=== PATIENT | male | born 1990 | race Two or more races ===

== ENCOUNTER 2023-04-18 21:03 | Emergency (ER) | payer MEDICAID, OTHER ==
[~2023-04-18] VITALS: Ht 175.3 cm; Wt 80.0 kg
[2023-04-18] MEDS ORDERED: NALOXONE HCL 1MG/ML 2ML SYRINGE IV ONE (21:15)
[2023-04-18 21:41] VITALS: BP 154/90; PULSE 125; RESP 12; O2SAT 98
[2023-04-18 22:23] LABS: Basophils # (auto) 0 10 ^3/uL (0-0.2); Basophils % (auto) 0.2 % (0.0-2.0); Eosinophils # (auto) 0 10 ^3/uL (0-0.8); Hematocrit 36.3 % (41.0-53.0); Hemoglobin 11.9 g/dL (13.5-17.5); Lymphocytes # (auto) 0.7 10 ^3/uL (0.4-5.4); Lymphocytes % (auto) 9.3 % (10.0-50.0); Mean Corpuscular Hemoglobin 30.5 pg (28.0-32.0); Mean Corpuscular Hgb Conc. 32.7 g/dL (32.0-36.0); Mean Corpuscular Volume 93.1 fL (80.0-100.0); Monocytes # (auto) 0.7 10 ^3/uL (0-1.3); Monocytes % (auto) 10.1 % (0.0-12.0); Neutrophils # (auto) 5.7 10 ^3/uL (1.6-8.6); Neutrophils % (auto) 80.4 % (37.0-80.0); Nucleated Red Blood Cells % 0.1 %; Red Blood Cells 3.89 10^6/uL (4.5-5.90); Red Cell Distribution Width 14.5 % (11.8-14.3)
[2023-04-18 22:35] LABS: Acetaminophen < 2.0 UG/ML (10.0-20.0); Alanine Aminotransferase 15 U/L (7-40); Albumin 4.1 g/dL (3.2-4.8); Alkaline Phosphatase 80 U/L (46-116); Anion Gap 9 (5-15); Aspartate Aminotransferase 24 U/L (13-40); Bilirubin, Total 0.3 mg/dL (0.2-1.0); Blood Urea Nitrogen 9 mg/dL (9-23); Calcium 9.1 mg/dL (8.7-10.4); Carbon Dioxide 25 mmol/L (20-30); Chloride 101 mmol/L (98-107); Glucose 118 mg/dL (74-106); Potassium 4.2 mmol/L (3.5-5.1); Sodium 135 mmol/L (136-145); Total Protein 6.6 g/dL (5.7-8.2)
[2023-04-18 22:38] LABS: Salicylate < 3.0 mg/dL (2.8-20.0)
== END 2023-04-18 22:05 | disposition left against medical advice (07) ==
LOC: ER 21:03 → EDBD 21:03 → ER 22:05
DX: T40.711A Poisoning by cannabis, accidental (unintentional), initial encounter (principal); Z53.21 Procedure and treatment not carried out due to patient leaving prior to being seen by health care provider; Z79.899 Other long term (current) drug therapy; Y92.89 Other specified places as the place of occurrence of the external cause
CPT/HCPCS: 36415; 80053; 80329; 85025; 93005; 96374; 99281; J2310

== ENCOUNTER 2024-04-12 03:19 | Inpatient (IN) | payer MEDICAID ==
[~2024-04-12] VITALS: Ht 165.1 cm; Wt 67.2 kg
[2024-04-12] VITALS (59 sets, daily range): BP systolic 98–140; BP diastolic 47–99; PULSE 105–140; RESP 20–35; TEMP 97.2–102; O2SAT 90–100
[2024-04-12] MEDS: EPINEPHrine HCL 250 ML IV ONE (03:25)
[2024-04-12] MEDS: EPINEPHrine HCL 250 ML IV SCH (03:30)
--- NOTE | 2024-04-12 03:46 | ED.PDOC ---
CPR-HPI HPI Comments 33 y/o M, with a Hx of prior drug overdose, is BIBA for cardiac arrest, today. Per EMS report, patient's friends called at 0225 after patient became unresponsive for 15x minutes after "smoking fentanyl" behind a dumpster of an [employer], this morning. On scene, EMS staff states on finding the patient in asystole after S.O. arrived on scene, first, and gave the patient 2x 4mg of Narcan before initiating CPR. En route, EMS gave the patient an additional 4mg Narcan (total dosage 12mg) and 2x epinephrines in addition to having i/o access placed to his right tibia prior to achieving ROSC at 0300. Upon arrival to ED at 0317, patient lost pulse, again, and CPR was resumed by EMS staff in addition patient being given last epinephrine at 0318 before care was resumed by ED staff. Patient was also stated by EMS staff to have been found with fentanyl and methamphetamine nearby on scene. 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 Chief Complaint: CPR Time Seen by MD: 03:19 Reviewed Notes: Nurses Notes, Obstetrician/Gynecologist Notes, Medications, Allergies Allergies: Coded Allergies: NO KNOWN ALLERGIES (Unverified , 04/18/23) Information Source: Emergency Med Personnel Mode of Arrival: EMS Timing: Hours Duration: Down time prior EMS: (15 minutes), Total time prior hopital: (68x minutes ) Onset: Witnessed Available Hx: Drug Overdose Inital rhythm: Asystole Treatment: CPR, IV, Epinephrine, Other (Narcan ) Associated signs and symptoms: Other (see HPI) Past Medical History Past Medical History (Other): prior drug overdose Surgical History: Unknown, Unobtainable Family History Family History: Unknown, Unobtainable Social History Smoker: Unknown, Unobtainable Alcohol: Unknown, Unobtainable Drugs: Methamphetamine, Other (fentanyl) Lives In: Homeless Constitutional: denies: chills, diaphoresis, fatigue, fever, malaise, sweats, weakness, others EENTM: denies: blurred vision, double vision, ear bleeding, ear discharge, ear drainage, ear pain, ear ringing, eye pain, eye redness, hearing loss, mouth pain, mouth swelling, nasal discharge, nose bleeding, nose congestion, nose pain, photophobia, tearing, throat pain, throat swelling, voice changes, others Respiratory: denies: cough, hemoptysis, orthopnea, SOB at rest, shortness of breath, SOB with excertion, stridor, wheezing, others Cardiovascular: denies: chest pain, dizzy spells, diaphoresis, Dyspnea on ex ertion, edema, irregular heart beat, left arm pain, lightheadedness, palpitations, PND, syncope, others Gastrointestinal: denies: abdomen distended, abdominal pain, blood streaked bowels, constipated, diarrhea, dysphagia, difficulty swallowing, hematemesis, melena, nausea, poor appetite, poor fluid intake, rectal bleeding, rectal pain, vomiting, others Genitourinary: denies: burning, dysuria, flank pain, frequency, hematuria, incontinence, penile discharge, penile sore, pain, testicle pain, testicle swelling, urgency, others Neurological: denies: dizziness, fainting, headache, left sided numbness, left sided weakness, numbness, paresthesia, pre-existing deficit, right sided numbness, right sided weakness, seizure, speech problems, tingling, tremors, weakness, others Musculoskeletal: denies: back pain, gout, joint pain, joint swelling, muscle pain, muscle stiffness, neck pain, others Integumetry: denies: bruises, change in color, change in hair/nails, dryness, laceration, lesions, lumps, rash, wounds, others Allergic/Immunocompromised: denies: Difficulty Healing, Frequent Infections, Hives, Itching, others Hematologic/Lymphatic: denies: anemia, blood clots, easy bleeding, easy bruising, swollen glands, others Endocrine: denies: excessive hunger, excessive sweating, excessive thirst, excessive urination, flushing, intolerance to cold, intolerance to heat, unexplained weight gain, unexplained weight loss, others Psychiatric: denies: anxiety, bipolar disorder, depression, hopeless, panic disorder, schizophrenia, sleepless, suicidal, others All Other Systems: Reviewed and Negative (see HPI) Physical Exam General Appearance: Severe Distress HEENT: Other (Pupils fixed sluggish) Neck: NOT DONE Respiratory: Respiratory Distress, Other (Intubated the patient) Cardiovascular: Other (No pulse) Breast Exam: Deferred Gastrointestinal: Soft Genitalia: Deferred Pelvic: Deferred Rectal: Deferred Extremities: No pedal edema Neurologic: Other (Unconscious) Cerebellar Function: NOT DONE Reflexes: NOT DONE Skin: Pallor Peripheral Pulses: 0 Radial (R), 0 Radial (L) Lymphatic: NOT DONE Was a procedure done? 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 rules examiner: Attending Physician Indication: Hypotension, CVP monitoring Room prepared for procedure: Yes Sand Conditioner Machine performed hand hygien: Yes Maximal sterile barrier precau: Mask/Eye shield, Sterile gown Skin Preparation: Chlorhexidine gluconate, Providine iodine Skin preparation completely dr: Yes Insertion site: Right, Femoral Central line catheter type: Fib-qmhqrhqe-qre dialysis Number of lumens: 3 Intubation Indication: Respiratory Insufficiency, Altered Mental Status Prep: No Preoxygenation Pretreated with: Nothing Medicated with: Nothing Intubation Approach: Orotracheal (8.0) Intubation size: cm (24cm) Informed consent obtained: No Risks/benefits/alt described: No Differential Dx CPR Differential Diagnosis: Cardiopulmonary arrest, Cardiogenic shock, Heart Block, Myocardial Infarction, Other (substance overdose ) X-Ray, Labs, Meds, VS Vital Signs Date Time Temp Pulse Resp B/P (MAP) Pulse Ox O2 Delivery O2 Flow Rate FiO2 04/12/24 05:02 103 04/12/24 05:00 146/101 04/12/24 04:32 151/101 04/12/24 04:30 102 17 151/101 (118) 04/12/24 04:30 151/101 04/12/24 04:30 151/101 04/12/24 04:25 112 24 90/46 (61) 97 35 04/12/24 04:25 151/111 04/12/24 04:20 149/109 04/12/24 04:15 96 19 138/100 (113) 04/12/24 04:15 138/100 04/12/24 04:00 96/61 04/12/24 04:00 96/61 04/12/24 04:00 97 20 96/61 (73) 04/12/24 03:55 62/30 04/12/24 03:52 96 04/12/24 03:50 62/33 04/12/24 03:45 110 20 84/47 (59) 04/12/24 03:37 126 28 193/129 (150) 04/12/24 03:30 193/129 04/12/24 03:30 107 20 79/43 (55) 100 100 04/12/24 03:22 95.0 Lab Test 04/12/24 04:19 04/12/24 03:49 04/12/24 03:37 Range/Units Blood Gas Specimen Type Arterial Blood Gas Sample Site Right radial Blood Gas Patient Temperature 37.0 Arterial Blood Date Drawn [id number] Arterial Blood pH 7.207 *L 7.350-7.450 Arterial Blood Partial Pressure CO2 42.1 35.0-48.0 mmHg Arterial Blood Partial Pressure O2 345.0 *H 83.0-108.0 mmHg Arterial Blood HCO3 16.3 L 21.0-28.0 mmol/L Arterial Blood Oxygen Saturation 99.7 H 94.0-98.0 % Arterial Blood Base Excess -11.0 L -2.0-3.0 mmol/L Arterial Blood Oxyhemoglobin 99.0 H 94.0-98.0 % Arterial Blood Carboxyhemoglobin 0.1 L 0.5-1.5 % Arterial Blood Methemoglobin 0.6 0.0-1.5 % Morgan Test Modified Blood Gas Total Hemoglobin 12.20 L 13.5-17.5 g/dL Blood Gas Set Respiration Rate 20.0 Blood Gas Modality Vent - ac Blood Gas Spontaneous Rate 20 FiO2 % 100.0 Blood Gas Tidal Volume 500.0 Blood Gas Spontaneous Tidal Volume 515 Blood Gas Inspiratory Pressure 25.0 Blood Gas PEEP or CPAP 5.0 Blood Gas Critical Value Read Back Yes Blood Gas Notified Whom Dr. virgilio mckeon Blood Gas Notified Time [id number] Blood Gas Notified By [employer] customer success associate Urine Color Light-orange Yellow Urine Clarity Ex.turbid Clear Urine pH 5.5 5.0-9.0 Urine Specific [place] 1.031 1.001-1.035 Urine Protein 2+ H Negative Urine Ketones Trace Negative Urine Blood 3+ H Negative /uL Urine Nitrite Negative Negative Urine Bilirubin Negative Negative Urine Urobilinogen 3 H Negative mg/dL Urine Leukocyte Esterase 3+ Negative /uL Urine RBC 196 0 - 3 /hpf Urine WBC 1295 0 - 3 /hpf Urine Squamous Epithelial Cells Few <5 /hpf Urine Bacteria Few H None Seen /hpf Urine Hyaline Casts Few 0 - 2 /lpf Urine Mucus Few None Seen Urine Glucose Normal Normal mg/dL Urine Opiates Screen Neg NEGATIVE Urine Fentanyl Screen Pos NEGATIVE Urine Barbiturates Screen Neg NEGATIVE Urine Phencyclidine Screen Neg NEGATIVE Urine Amphetamines Screen Pos NEGATIVE Urine Benzodiazepines Screen Neg NEGATIVE Urine Cocaine Screen Neg NEGATIVE Urine Cannabinoids Screen Pos NEGATIVE White Blood Count 8.1 4.4-10.8 10^3/uL Red Blood Count 3.46 L 4.5-5.90 10^6/uL Hemoglobin 10.4 L 13.5-17.5 g/dL Hematocrit 32.5 L 41.0-53.0 % Mean Corpuscular Volume 94.0 80.0-100.0 fL Mean Corpuscular Hemoglobin 30.1 28.0-32.0 pg Mean Corpuscular Hemoglobin Concent 32.0 32.0-36.0 g/dL Red Cell Distribution Width 14.0 11.8-14.3 % Platelet Count 328 140-450 10^3/uL Mean Platelet Volume 7.8 6.9-10.8 fL Neutrophils (%) (Auto) 37.0-80.0 % Lymphocytes (%) (Auto) 10.0-50.0 % Monocytes (%) (Auto) 0.0-12.0 % Basophils (%) (Auto) 0.0-2.0 % Neutrophils # (Auto) 1.6-8.6 10 ^3/uL Lymphocytes # (Auto) 0.4-5.4 10 ^3/uL Monocytes # (Auto) 0-1.3 10 ^3/uL Differential Total Cells Counted 100.0 100 Neutrophils % (Manual) 29 L 37.0-80.0 Band Neutrophils % (Manual) 2 Lymphocytes % (Manual) 56 H 10.0-50.0 Monocytes % (Manual) 6 0-12 Eosinophils % (Manual) 1 0-7 Basophils % (Manual) 0 0.0-2.0 Metamyelocytes % (manual) 1 Myelocytes % (Manual) 4 Promyelocytes % (Manual) 0 Blast Cells % (Manual) 0 Nucleated Red Blood Cells 2.0 % Reactive Lymphocytes 1 Platelet Estimate Adequate Sodium Level 147 H 136-145 mmol/L Potassium Level 3.5 3.5-5.1 mmol/L Chloride Level 108 H 98-107 mmol/L Carbon Dioxide Level 23 20-31 mmol/L Anion Gap 16 H 5-15 Blood Urea Nitrogen 19 9-23 mg/dL Creatinine 1.35 H 0.700-1.30 mg/dL Glomerular Filtration Rate Calc 70 >90 mL/min BUN/Creatinine Ratio 14.1 10.0-20.0 Serum Glucose 268 H 74-106 mg/dL Calcium Level 7.8 L 8.7-10.4 mg/dL Troponin I High Sensitivity 90 *H </=54 ng/L Current Medications Medications (Trade) Dose Ordered Sig/Moni Route Start Time Stop Time Status Last Admin Epinephrine HCl 250 ml @ 7.5 mls/hr Q24H IV 04/12/24 03:30 04/12/24 03:30 Sodium Chloride 1,000 ml @ 1,000 mls/hr Q1H ONCE IV 04/12/24 04:00 04/12/24 04:59 DC 04/12/24 04:00 Sodium Chloride 1,000 ml @ 150 mls/hr Q6H40M ONCE IV 04/12/24 04:00 04/12/24 10:39 04/12/24 04:30 Midazolam HCl 50 ml @ 1 mls/hr Q24H IV 04/12/24 04:00 04/12/24 04:00 Norepinephrine Bitartrate 250 ml @ 3.75 mls/hr Q24H IV 04/12/24 04:00 04/12/24 03:50 Fentanyl Citrate 250 ml @ 2.5 mls/hr Q24H IV 04/12/24 04:30 04/12/24 04:32 [place] [address] Ph: [phone] DIAGNOSTIC IMAGING Diagnostic Imaging Report : [id number] Signed PATIENT: GABRIEL VELARDE ACCT: [id number] UNIT: [id number] : 1990 LOC: ER ROOM / BED: / AGE / SEX: 33 / M ADM STATUS: REG ER SERVICE 5 ORDERING PHYSICIAN: SHANNON MCKEON MD PROCEDURE(s): CXR1 - CHEST XRAY 1 VIEW REASON: post intubation placement ORDER NUMBER(s): [id number], ACCESSION NUMBER(s): [id number] CHEST RADIOGRAPH Indication:post intubation placement Technique: Single frontal view of the chest was obtained Comparison: None FINDINGS: Lines and Tubes: The endotracheal tube terminates 2.8 cm above the placido. The enteric tube terminates in the mid esophagus. Repositioning is recommended. Lungs: Bilateral interstitial prominence. Pleura: No effusion. No pneumothorax. Cardiomediastinal contours: Unremarkable Bones: No acute osseous abnormality. Upper abdomen: Marked gaseous distention of the stomach and bowel loops. IMPRESSION: 1. Malpositioned enteric tube with its tip terminating in the mid esophagus. Repositioning is recommended. 2. Endotracheal tube terminates 2.8 cm above placido in appropriate position. 3. Pulmonary congestion. ATED BY: SANDRA THURSTON MD DICTATED DATE/TIME: 04/12/24414 SIGNED BY: SANDRA THURSTON MD SIGNED DATE/TIME: 04/12/24414 CC: Patient unconscious. Drug overdose. Possible fentanyl. Was given Narcan in the field. CPR in progress. Transfer care to the ER. Continuous CPR. ACLS drugs use. Intubated the patient. Central line placed. Was due to good pulses. Started an epinephrine drip. Was given fluids. Continue cardiac monitoring. Critical. Time of 1ST Reevaluation: 03:49 Reevaluation 1ST: Unchanged Patient Education/Counseling: Diagnosis, Treatment Family Education/Counseling: No Family Present Departure 1 Departure Time of Disposition: 03:51 Impression: Primary Impression: Acute respiratory failure Qualified Codes: J96.01 - Acute respiratory failure with hypoxia Additional Impressions: Drug overdose Qualified Codes: T50.904A - Poisoning by unspecified drugs, medicaments and biological substances, undetermined, initial encounter Cardiac arrest Disposition: ADMITTED INPATIENT Admit to: ICU Condition: Guarded Critical Care Note Critical Care Time?: Yes (90 min-critical care time only) Heart Score Heart Score: Heart Score Response (Comments) Value History Highly Suspicious 2 EKG Normal 0 Age <45 0 Risk Factors 1 or 2 risk factors 1 Troponin >3 x's Normal limit 2 Total 5 Stability Stability form required: No I personally scribed for SHANNON MCKEON MD ([email or web address]) on 04/12/24 at 03:46. Electronically submitted by Matt Kirkland ([email or web address]). I personally scribed for SHANNON MCKEON MD ([email or web address]) on 04/12/24 at 04:26. Electronically submitted by Matt Kirkland [email or web address]). SHANNON MCKEON MD Apr 12, 2024 03:46
[2024-04-12] MEDS: MIDAZOLAM DRIP 50 mg/50mL 50 ML IV ONE (03:50)
[2024-04-12] MEDS: NOREPINEPHRINE 8 MG/250ML KIT 250 ML IV ONE (03:50)
[2024-04-12] MEDS: NOREPINEPHRINE 8 MG/250ML KIT 250 ML IV SCH (03:50)
[2024-04-12] MEDS: MIDAZOLAM DRIP 50 mg/50mL 50 ML IV SCH (04:00)
[2024-04-12] MEDS: SODIUM CHLORIDE 0.9% 1,000 ML IV ONE ×2 (04:00→04:30)
[2024-04-12 04:03] LABS: Hematocrit 32.5 % (41.0-53.0); Hemoglobin 10.4 g/dL (13.5-17.5); Mean Corpuscular Hemoglobin 30.1 pg (28.0-32.0); Platelet Count (auto) 328 10^3/uL (140-450); Red Blood Cells 3.46 10^6/uL (4.5-5.90); White Blood Cell 8.1 10^3/uL (4.4-10.8)
[2024-04-12 04:13] LABS: Urine Bacteria FEW /hpf (None Seen); Urine Blood 3+ /uL (Negative); Urine Clarity Ex.Turbid (Clear); Urine Color Light-Orange (Yellow); Urine Hyaline Cast FEW /lpf (0 - 2); Urine Mucus FEW (None Seen); Urine Protein, UAD 2+ (Negative); Urine Specific Gravity 1.031 (1.001-1.035); Urine Urobilinogen 3 mg/dL (Negative); Urine WBC 1295 /hpf (0 - 3); Urine pH 5.5 (5.0-9.0)
[2024-04-12 04:14] LABS: Chloride 108 mmol/L (98-107); Potassium 3.5 mmol/L (3.5-5.1); Sodium 147 mmol/L (136-145)
[2024-04-12 04:15] LABS: Anion Gap 16 (5-15); Calcium 7.8 mg/dL (8.7-10.4); Carbon Dioxide 23 mmol/L (20-31)
--- NOTE | 2024-04-12 04:17 | DVH ---
CHEST RADIOGRAPH Indication:post intubation placement Technique: Single frontal view of the chest was obtained Comparison: None FINDINGS: Lines and Tubes: The endotracheal tube terminates 2.8 cm above the placido. The enteric tube terminate s in the mid esophagus. Repositioning is recommended. Lungs: Bilateral interstitial prominence. Pleura: No effusion. No pneumothorax. Cardiomediastinal contours: Unremarkable Bones: No acute osseous abnormality. Upper abdomen: Marked gaseous distention of the stomach and bowel loops. IMPRESSION: 1. Malpositioned enteric tube with its tip terminating in the mid esophagus. Repositioning is recomm ended. 2. Endotracheal tube terminates 2.8 cm above placido in appropriate position. 3. Pulmonary congestion.
[2024-04-12 04:19] LABS: Amphetamine Screen, Urine Pos (NEGATIVE); Barbiturate Scree,Urine Neg (NEGATIVE); Benzodiazephine Screen, Urine Neg (NEGATIVE); Cannabinoid Screen, Urine Pos (NEGATIVE); Cocaine Screen, Urine Neg (NEGATIVE); Opiate Scree,Urine Neg (NEGATIVE); Phencyclidine Screen, Urine Neg (NEGATIVE)
[2024-04-12 04:20] LABS: BUN/Creatinine Ratio 14.1 (10.0-20.0); Blood Urea Nitrogen 19 mg/dL (9-23); Glucose 268 mg/dL (74-106)
[2024-04-12] MEDS: fentaNYL Drip 2500mCg/250mlNS 250 ML IV SCH (04:32)
[2024-04-12 04:34] LABS: Basophils % (manual) 0 (0.0-2.0); Blast Cells 0; Promyelocytes % 0
[2024-04-12 05:35] LABS: Band Neutrophils % (manual) 2; Eosinophils % (manual) 1 (0-7); Lymphocytes % (manual) 56 (10.0-50.0); Metamyelocytes % 1; Monocytes % (manual) 6 (0-12); Myelocytes % 4; Platelet Estimate Adequate; Reactive Lymphocytes 1
--- NOTE | 2024-04-12 06:35 | ECG ---
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
--- NOTE | 2024-04-12 06:52 | DVH ---
CHEST RADIOGRAPH Indication:OG TUBE PLACEMENT Technique: Single frontal view of the chest was obtained Comparison: XY CHEST XRAY 1 VIEW on DOS: 04/12/24 FINDINGS: Lines and Tubes: The endotracheal tube terminates 3.7 cm above the placido. The enteric tube has been advanced and the tip projects over the GE junction. The side port projects over the distal esophagus . Lungs: Worsening bilateral airspace disease since prior study performed earlier same date. Pleura: No effusion. No pneumothorax. Cardiomediastinal contours: Unremarkable Bones: No acute osseous abnormality. IMPRESSION: 1. Enteric tube has been advanced however the side port remains above the GE junction and the tip bar taylor within the gastric lumen. Advancement recommended. 2. Significant worsening of bilateral airspace disease.
--- NOTE | 2024-04-12 07:38 | RESUS ---
CODE BLUE ASSESSSMENT History of Events History of Events: 33 y/o M, with a Hx of prior drug overdose, is BIBA for cardiac arrest, today. Per EMS report, patient's friends called at 0225 after patient became unresponsive for 15x minutes after "smoking fentanyl" behind a dumpster of an [employer], this morning. On scene, EMS staff states on finding the patient in asystole after S.O. arrived on scene, first, and gave the patient 2x 4mg of Narcan before initiating CPR. En route, EMS gave the patient an additional 4mg Narcan (total dosage 12mg) and 2x epinephrines in addition to having i/o access placed to his right tibia prior to achieving ROSC at 0300. Upon arrival to ED at 0317, patient lost pulse, again, and CPR was resumed by EMS staff in addition patient being given last epinephrine at 0318 before care was resumed by ED staff. Patient was also stated by EMS staff to have been found with fentanyl and methamphetamine nearby on scene. Further Hx cannot be obtained. Initial Information Date: Apr 12, 2024 Time: :40 Location of Arrest: In Field Arrest Witnessed: Yes CPR started initial time: 03:30 CPR started by whom: SO Pre-Hospital Care: ACLS Type of arrest: Cardiac, Respiratory, Trauma, Adult, Witnessed Spontaneous Respirations: No Pulse Present: No Monitoring: ECG, Pulse Oximetry, Apnea, Telemetry Crash Cart Opened and Supplies: Yes Airway Ventilation Breathing at Onset: Apneic O2 Sat by Pulse Oximetry: 0 Oxygen Delivery Method: Ambu-Bag Time of first Assisted Ventila: 03:22 Artificial Ventilation: Bag/Endo tube Intubation Time: :22 Intubation Size: 8.0 cuffed Intubated by: JERROD MONTE Intubation Attempts: 2 Intubated orally: Yes Intubated Nasaly: No Tube secured at: 24 Cricoid pressure done: No CO2 indicator used: Yes Confirmation: Auscultation, Exhaled CO2, Chest X-ray Suctioning (Oral/Tracheal): No Circulation Circulation : Time: 03:18 Pulse Rate (adult): 0 Blood Pressure Systolic: 0 Blood Pressure Diastolic: 0 Temperature (Fahrenheit): 95 Procedure - IV Procedure - IV : IV start time: 03:20 IV Location: Antecubital IV Catheter Type: Saline Lock IV Placed: RN IV Placed by SHA IV Gauge: 20 IV Line Care: Saline Flush Procedure - Intraosseous Site of Intraosseous: Tibia yfn-medial Intraosseous inserted by: DONE BY EMS IN FIELD Medications & Response Medications and Responses #1: Medication Time: 03:19 ADULT Medications Given ADULT: Sodium Bacarbinate 50 meq Route of Administration: IO Heart Rate: 0 Blood Pressure Systolic: 0 Blood Pressure Diastolic: 0 Respiratory Rate: 0 O2 Sat by Pulse Oximetry: 0 IV Line Rate: 1000 EKG Rhythm: Asystole Comment 0321 NO PULSE Medications and Responses #2: Medication Time: 03:21 ADULT Medications Given ADULT: Epinephrine 1 mg Route of Administration: IV Heart Rate: 0 EKG Rhythm: Asystole Blood Pressure Systolic: 0 Blood Pressure Diastolic: 0 Respiratory Rate: 0 O2 Sat by Pulse Oximetry: 0 IV Line Rate: 1000 EKG Rhythm: Sinus Tachycardia Comment 0322 ROSC HR 175 BP 173 /123, NO PULSE AT 0325 Medications and Responses #3: Medication Time: 03:25 ADULT Medications Given ADULT: Epinephrine 1 mg, Sodium Bacarbinate 50 meq Route of Administration: IV Heart Rate: 0 EKG Rhythm: PEA Blood Pressure Systolic: 0 Blood Pressure Diastolic: 0 Respiratory Rate: 0 O2 Sat by Pulse Oximetry: 0 IV Line Rate: 1000 EKG Rhythm: Asystole Comment NO PULSE AT 0327 Medications and Responses #4: Medication Time: 03:27 ADULT Medications Given ADULT: Epinephrine 1 mg, Sodium Bacarbinate 50 meq Route of Administration: IV Heart Rate: 0 Blood Pressure Systolic: 0 Blood Pressure Diastolic: 0 Respiratory Rate: 0 IV Line Rate: 1000 EKG Rhythm: Asystole Medications and Responses #5: Medication Time: 03:29 ADULT Medications Given ADULT: Epinephrine 1 mg, Sodium Bacarbinate 50 meq Route of Administration: IV Heart Rate: 0 EKG Rhythm: PEA Blood Pressure Systolic: 0 Blood Pressure Diastolic: 0 Respiratory Rate: 0 O2 Sat by Pulse Oximetry: 0 EKG Rhythm: PEA Comment pulse check at 0330 ROSC VS HR 178 BP 180/121 SAT 91% PT STARTED ON EPINEPHRINE DRIP AT 2MCG /MIN Pacing Pacer Pads Applied and Pacing: Yes Procedure - Central Venous Cat Central venous catheter time: 03:27 Central venous catheter site: Rt Femoral Central Venous Catheter Insert: DR COOPER Procedure - Chambers Catheter Time: 03:29 Urinary Catheter Type/Location: Uretheral (Chambers) Urinary Catheter Size: 16 Urine Color: Yellow Chambers Catheter Secured: Yes Chambers Catheter Inserted by Who: SHA RN Nurses Notes [place] Coma Scale Eye Opening: None (1) [place] Coma Scale Verbal: None (1) [place] Coma Scale Motor: None (1) Pupil Reaction: Non Reactive Bedside Blood Glucose: 209 EKG Rhythm: Sinus Tachycardia Time Code Ended Time Code Ended: 03:30 Post Arrest Status: Ventilated Outcome of code: Successful Family notified: No Attending called: No Code Team Present: AYDE HE RN HS, ROSMERY RN, SHA RN, SANJUANITA RN, TEENA ERT, ALPESH ERT, JERROD RT, ELLEN RT Post Resuscitation Neurologica Pupil Size: 2 ROSC Time of ROSC: 21:30 Pt Meets Criteria for Therapeu: No Therapeutic Hyperthermia Start: AYDE Coelho Apr 12, 2024 07:38
--- NOTE | 2024-04-12 10:33 | DVH ---
EXAM: CT HEAD WITHOUT CONTRAST INDICATION: altered TECHNIQUE: CT of the head without intravenous contrast. Radiation dose : Head: CT Dose: CTDI volume is 53 mGy. Dose-length product is 972.72 mGy*cm The dose indicators for CT are the volume computed tomography (CT) dose index (CTDIvol) and the dose length product (DLP), and are measured in units of mGy and mGy-cm, respectively. These indicators are not patient dose, but values generated from the CT scanner acquisition factors. The report includes radiation exposure data for exposures received during this examination. COMPARISON: None FINDINGS: There is no evidence of acute intracranial hemorrhage, extra-axial collection, mass effect, midline s hift, herniation or hydrocephalus. The ventricles, sulci and cisterns are age appropriate. The servin-white differentiation is intact. There are air-fluid levels in the bilateral maxillary sinuses. The surrounding soft tissues and osseous structures are unremarkable. IMPRESSION: 1. No acute intracranial abnormality. Bilateral maxillary sinusitis. Radiation optimization: All CT scans at this facility use at least one of these dose optimization nadia hniques: Automated exposure control mA and/or kV adjustment per patient size (includes targeted exams where dose is matched to clinical indication) or iterative reconstruction. HS:Y
[2024-04-12] MEDS ORDERED: DEXTROSE (50%) 50ML SYRG IV PRN ×2 (11:30)
[2024-04-12] MEDS ORDERED: ONDANSETRON HCL 4 MG/2 ML VIAL IV PRN (11:30)
[2024-04-12] MEDS ORDERED: MORPHINE SULFATE INJ 2 MG/ml SYRG IV PRN (11:30)
--- NOTE | 2024-04-12 11:37 | DVHHP2 ---
History of Present Illness Reason for Visit: overdose History of Present Illness 33-year-old brought in for acute respiratory failure secondary to believes drug overdose with meth and fentanyl patient was obtunded and acute respiratory distress airway and intubation and protection and required patient was intubated in the ED overnight CT scan and evaluation was completed patient unable to give pertinent history as of now does have a history of being in the ED multiple times for drug overdose use in the past tox screen positive again for meth and fentanyl possible toxic overdose with fentanyl and system currently patient will be admitted to the ICU for further evaluation and management and acute critical care Cardiovascular: HTN Psych: Depression Drugs: Cocaine (Fentanyl and meth), Marijuana Review of Systems Constitutional: Yes: Weakness, Malaise; No: Fever, Chills, Sweats, Other Eyes: No: Pain, Vision change, Conjunctivae inflammation, Eyelid inflammation, Other, Redness ENT: No: Ear pain, Ear discharge, Nose pain, Nose discharge, Nose congestion, Mouth pain, Mouth swelling, Throat pain, Throat swelling, Other Respiratory: Shortness of breath, SOB with excertion; No: Cough, Dry, Wheezing, Hemoptysis, Pleuritic Pain, Sputum, Wheezing, Other Cardiovascular: No: Chest Pain, Palpitations, Orthopnea, Paroxysmal Noc. Dyspnea, Edema, Lt Headedness, Other Gastrointestinal: No: Nausea, Vomiting, Abdominal Pain, Diarrhea, Constipation, Melena, Hematochezia, Other Genitourinary: No Dysuria, No Frequency, No Incontinence, No Hematuria, No Retention, No Other Musculoskeletal: No: other, neck pain, shoulder pain, arm pain, back pain, hand pain, leg pain, foot pain Skin: No: Rash, Lesions, Jaundice, Bruising, Other Neurological: No: Weakness, Numbness, Incoordination, Change in speech, Confusion, Seizures, Other Allergies: Coded Allergies: NO KNOWN ALLERGIES (Unverified , 04/18/23) Medications Current Medications Medications Dose Ordered Sig/Moni Route Start Time Stop Time Status Last Admin Dose Admin Epinephrine HCl 250 ml @ 7.5 mls/hr Q24H IV 04/12/24 03:30 04/12/24 03:30 7.5 MLS/HR Midazolam HCl 50 ml @ 1 mls/hr Q24H IV 04/12/24 04:00 04/12/24 04:00 1 MLS/HR Norepinephrine Bitartrate 250 ml @ 3.75 mls/hr Q24H IV 04/12/24 04:00 04/12/24 03:50 3.75 MLS/HR Fentanyl Citrate 250 ml @ 2.5 mls/hr Q24H IV 04/12/24 04:30 04/12/24 04:32 2.5 MLS/HR Exam Vital Signs Vital Signs Date Time Temp Pulse Resp B/P (MAP) Pulse Ox O2 Delivery O2 Flow Rate FiO2 04/12/24 11:15 121 26 130/94 (106) 100 04/12/24 10:14 70 04/12/24 09:00 99.3 99.3 04/12/24 07:44 Mechanical Ventilator+ General Appearance: severe distress, Other (Intubated obtunded sedated) HEENT: Atraumatic, PERRLA Respiratory: Other (Intubated mechanical ventilation) Cardiovascular: Normal S1, Normal S2, Other (Tachycardic) Abdominal: Normal bowel sounds, Soft, No tenderness Extremities: No clubbing, No cyanosis, No edema Skin: No rashes, No breakdown, No significant lesion Neuro: Normal speech (obtunded and unable to assess) Psych/Mental Status: Other (Intubated sedated unable to assess) Labs/Xrays Labs Test 04/12/24 04:19 04/12/24 03:49 04/12/24 03:37 Range/Units Blood Gas Specimen Type Arterial Blood Gas Sample Site Right radial Blood Gas Patient Temperature 37.0 Arterial Blood Date Drawn [id number] Arterial Blood pH 7.207 *L 7.350-7.450 Arterial Blood Partial Pressure CO2 42.1 35.0-48.0 mmHg Arterial Blood Partial Pressure O2 345.0 *H 83.0-108.0 mmHg Arterial Blood HCO3 16.3 L 21.0-28.0 mmol/L Arterial Blood Oxygen Saturation 99.7 H 94.0-98.0 % Arterial Blood Base Excess -11.0 L -2.0-3.0 mmol/L Arterial Blood Oxyhemoglobin 99.0 H 94.0-98.0 % Arterial Blood Carboxyhemoglobin 0.1 L 0.5-1.5 % Arterial Blood Methemoglobin 0.6 0.0-1.5 % Morgan Test Modified Blood Gas Total Hemoglobin 12.20 L 13.5-17.5 g/dL Blood Gas Set Respiration Rate 20.0 Blood Gas Modality Vent - ac Blood Gas Spontaneous Rate 20 FiO2 % 100.0 Blood Gas Tidal Volume 500.0 Blood Gas Spontaneous Tidal Volume 515 Blood Gas Inspiratory Pressure 25.0 Blood Gas PEEP or CPAP 5.0 Blood Gas Critical Value Read Back Yes Blood Gas Notified Whom Dr. virgilio mckeon Blood Gas Notified Time [id number] Blood Gas Notified By Sheng rush change control manager Urine Color Light-orange Yellow Urine Clarity Ex.turbid Clear Urine pH 5.5 5.0-9.0 Urine Specific [place] 1.031 1.001-1.035 Urine Protein 2+ H Negative Urine Ketones Trace Negative Urine Blood 3+ H Negative /uL Urine Nitrite Negative Negative Urine Bilirubin Negative Negative Urine Urobilinogen 3 H Negative mg/dL Urine Leukocyte Esterase 3+ Negative /uL Urine RBC 196 0 - 3 /hpf Urine WBC 1295 0 - 3 /hpf Urine Squamous Epithelial Cells Few <5 /hpf Urine Bacteria Few H None Seen /hpf Urine Hyaline Casts Few 0 - 2 /lpf Urine Mucus Few None Seen Urine Glucose Normal Normal mg/dL Urine Opiates Screen Neg NEGATIVE Urine Fentanyl Screen Pos NEGATIVE Urine Barbiturates Screen Neg NEGATIVE Urine Phencyclidine Screen Neg NEGATIVE Urine Amphetamines Screen Pos NEGATIVE Urine Benzodiazepines Screen Neg NEGATIVE Urine Cocaine Screen Neg NEGATIVE Urine Cannabinoids Screen Pos NEGATIVE White Blood Count 8.1 4.4-10.8 10^3/uL Red Blood Count 3.46 L 4.5-5.90 10^6/uL Hemoglobin 10.4 L 13.5-17.5 g/dL Hematocrit 32.5 L 41.0-53.0 % Mean Corpuscular Volume 94.0 80.0-100.0 fL Mean Corpuscular Hemoglobin 30.1 28.0-32.0 pg Mean Corpuscular Hemoglobin Concent 32.0 32.0-36.0 g/dL Red Cell Distribution Width 14.0 11.8-14.3 % Platelet Count 328 140-450 10^3/uL Mean Platelet Volume 7.8 6.9-10.8 fL Neutrophils (%) (Auto) 37.0-80.0 % Lymphocytes (%) (Auto) 10.0-50.0 % Monocytes (%) (Auto) 0.0-12.0 % Basophils (%) (Auto) 0.0-2.0 % Neutrophils # (Auto) 1.6-8.6 10 ^3/uL Lymphocytes # (Auto) 0.4-5.4 10 ^3/uL Monocytes # (Auto) 0-1.3 10 ^3/uL Differential Total Cells Counted 100.0 100 Neutrophils % (Manual) 29 L 37.0-80.0 Band Neutrophils % (Manual) 2 Lymphocytes % (Manual) 56 H 10.0-50.0 Monocytes % (Manual) 6 0-12 Eosinophils % (Manual) 1 0-7 Basophils % (Manual) 0 0.0-2.0 Metamyelocytes % (manual) 1 Myelocytes % (Manual) 4 Promyelocytes % (Manual) 0 Blast Cells % (Manual) 0 Nucleated Red Blood Cells 2.0 % Reactive Lymphocytes 1 Platelet Estimate Adequate Sodium Level 147 H 136-145 mmol/L Potassium Level 3.5 3.5-5.1 mmol/L Chloride Level 108 H 98-107 mmol/L Carbon Dioxide Level 23 20-31 mmol/L Anion Gap 16 H 5-15 Blood Urea Nitrogen 19 9-23 mg/dL Creatinine 1.35 H 0.700-1.30 mg/dL Glomerular Filtration Rate Calc 70 >90 mL/min BUN/Creatinine Ratio 14.1 10.0-20.0 Serum Glucose 268 H 74-106 mg/dL Calcium Level 7.8 L 8.7-10.4 mg/dL Troponin I High Sensitivity 90 *H </=54 ng/L Assessment/Plan Assessment/Plan Admit to ICU Acute respiratory failure in the setting of drug overdose Patient with acute cardiac arrest Status post CPR intubated Patient with a drug overdose of med and fentanyl Currently intubated pressure support ICU placement Critical care consult ordered in the ED IV antibiotics for coverage Patient shown to have an acute UTI plus three leukocytes Blood cultures ordered Urine cultures ordered IV hydration Adjust antibiotics as required Patient does meet criteria at this point in time for sepsis protocol critical care time 44 mins Plan discussed with: Patient My Orders Orders - RICK BERNAL MD Procedure Category Date Status Time Ceftriaxone Ivpb PHA 04/12/24 Transmitted Rocephin 11:30 Ceftriaxone Ivpb PHA 04/13/24 Transmitted Rocephin 10:00 Glucose Blood PHA 04/12/24 Transmitted (Accu-Chek Comfort 12:00 Mild Sliding Scale PHA 04/12/24 Transmitted Npo - Q6hr 12:00 Dextrose 50% Syringe PHA 04/12/24 Transmitted 11:30 Admit ADMIT 04/12/24 Transmitted 11:23 Code Status CODE 04/12/24 Transmitted 11:23 Vital Signs [facility] 04/12/24 Transmitted 11:23 Review Orders With [facility] 04/12/24 Transmitted Adm.Md 11:23 Npo (Nothing By DIET 04/12/24 Transmitted Mouth) Diet Lunch Sodium Chloride 0.9% PHA 04/12/24 Transmitted 11:30 Notify Md Of Changes [facility] 04/12/24 Transmitted From Base 11:23 Advance Directive [facility] 04/12/24 Transmitted 11:23 Basic Metabolic Panel LAB 04/13/24 Verified 04:00 Complete Blood Count LAB 04/13/24 Verified 04:00 Blood Culture [facility] 04/12/24 Transmitted 11:23 Urine Bacterial [facility] 04/12/24 Transmitted Culture 11:23 Patient Condition ORDERS 04/12/24 Transmitted 11:23 Allergies [facility] 04/12/24 Transmitted 11:23 Ondansetron Hcl PHA 04/12/24 Transmitted (Zofran) 11:30 Stat Ekg For Chest [facility] 04/12/24 Transmitted Pain 11:23 Notify Md Of Changes [facility] 04/12/24 Transmitted From Base 11:23 Associate Chief Nurse For [facility] 04/12/24 Transmitted 24 Hours 11:23 Emergency Dysrhythmia [facility] 04/12/24 Transmitted Protocol 11:23 Rhythm Strips Once [facility] 04/12/24 Transmitted Every Shift 11:23 Oxygen By Nasal RT 04/12/24 Transmitted Cannula 11:23 Morphine Sulfate PHA 04/12/24 Transmitted Injection 11:30 Glucose Blood [facility] 04/12/24 Transmitted (Accu-Chek Comfort 12:00 Mild Sliding Scale PHA 04/12/24 Transmitted Npo - Q6hr 12:00 Dextrose 50% Syringe PHA 04/12/24 Transmitted 11:30 Problem List: (1) Acute respiratory failure (2) Cardiac arrest (3) Drug overdose Date of Service: Apr 12, 2024 Billing Provider: RICK BERNAL MD Common Visit Codes: [id number] CARE 30-74 MIN RICK BERNAL MD Apr 12, 2024 11:37
[2024-04-12] MEDS: cefTRIAXone 2GM/50ML D5W 50 ML IV ONE (11:57)
[2024-04-12] MEDS: InsuLIN REG 1unit/0.01ml Soln (100units/ml) SC SCH (12:00)
[2024-04-12] MEDS ORDERED: ACCU-CHEK COMFORT CURVE STRIP VI SCH (12:00)
[2024-04-12] MEDS ORDERED: InsuLIN REG 1unit/0.01ml Soln (100units/ml) SC SCH (12:00)
[2024-04-12] MEDS: ACCU-CHEK COMFORT CURVE STRIP VI SCH (12:00)
[2024-04-12] MEDS: SODIUM CHLORIDE 0.9% 1,000 ML IV SCH ×2 (12:50→18:21)
[2024-04-12] MEDS: ACETAMINOPHEN 650 MG RECT SUPP PR PRN (15:13)
[2024-04-12] MEDS: VANCOMYCIN 1GM/250ML KIT 200 ML IV ONE (16:52)
[2024-04-12 17:48] LABS: Lactic Acid w/Reflex 3.3 mmol/L (0.4-2.0)
[2024-04-12 22:01] LABS: Base Excess -6.5 mmol/L (-2.0-3.0)
[2024-04-12] MEDS: PROPOFOL 100 ML IV ONE (22:09)
[2024-04-12] MEDS: PROPOFOL 100 ML IV SCH (22:11)
--- NOTE | 2024-04-12 22:12 | DVHINCON2 ---
Date of service: Apr 12, [address] Vazquez Reason for Consultation Mechanical ventilator management History of Present Illness 33-year-old man history of drug use who was brought in by ambulance and cardiac arrest. He was currently sedated, intubated mechanical ventilator. History is obtained from EMR, RN MD Romero for patient. He was found behind a dumpster at [facility] after smoking fentanyl. EMS found patient asystole after significant other arrived on the scene. Patient received Narcan before initiation of CPR. Pulmonary consultation is called due to acute hypoxic respiratory failure on mechanical ventilator management. Review of systems: 14 point review of systems is negative unless otherwise noted above. Past medical history: Down time 15 minutes. Total time prior to hospital 68 minutes. Drug overdose. Methamphetamine and fentanyl suspected. Past surgical history: Unable to obtain due to patient's critical condition. Medications: Unable to obtain due to patient's critical condition. Allergies: No known drug allergies. Family history: No family history of premature CAD. No family history of lung disease Social history: Unable to obtain due to patient's critical condition. Homeless. Methamphetamines and fentanyl. Allergies: Coded Allergies: NO KNOWN ALLERGIES (Unverified , 04/18/23) Current Medications Current Medications Medications (Trade) Dose Ordered Sig/Moni Route PRN Reason Start Time Stop Time Status Last Admin Epinephrine HCl 250 ml @ 7.5 mls/hr Q24H IV 04/12/24 03:30 04/12/24 03:30 Midazolam HCl 50 ml @ 1 mls/hr Q24H IV 04/12/24 04:00 04/12/24 20:37 Norepinephrine Bitartrate 250 ml @ 3.75 mls/hr Q24H IV 04/12/24 04:00 04/12/24 03:50 Fentanyl Citrate 250 ml @ 2.5 mls/hr Q24H IV 04/12/24 04:30 04/12/24 04:32 Ceftriaxone Sodium 50 ml @ 100 mls/hr DAILY IV 04/13/24 10:00 04/12/24 16:32 DC Diagnostic Test (Pha) (Accu-Chek Comfort Curve T) 1 strip Q6HR 04/12/24 12:00 04/12/24 18:19 Insulin Human Regular (InsuLIN R) Q6HR SC 04/12/24 12:00 Dextrose 50 ml UD PRN IV Blood Sugar LESS THAN 60 04/12/24 11:30 Sodium Chloride 1,000 ml @ 100 mls/hr Q10H IV 04/12/24 11:30 04/12/24 17:55 DC 04/12/24 12:50 Ondansetron HCl (Zofran) 4 mg Q4HP PRN IV NAUSEA / VOMITING 04/12/24 11:30 Morphine Sulfate 2 mg Q30M PRN IV FOR CHEST PAIN 04/12/24 11:30 Diagnostic Test (Pha) (Accu-Chek Comfort Curve T) 1 strip Q6HR 04/12/24 12:00 UNV Insulin Human Regular (InsuLIN R) Q6HR SC 04/12/24 12:00 UNV Dextrose 50 ml UD PRN IV Blood Sugar LESS THAN 60 04/12/24 11:30 UNV Acetaminophen (Tylenol Suppository) 650 mg Q6HP PRN AR MODERATE PAIN (4-6 PAIN SCALE) 04/12/24 14:00 04/12/24 15:13 Piperacillin Sod/ Tazobactam Sod 100 ml @ 25 mls/hr Q8HR IV 04/12/24 22:00 Sodium Chloride 1,000 ml @ 150 mls/hr Q6H40M IV 04/12/24 18:00 04/12/24 18:21 Propofol 100 ml @ 2.4 mls/hr Q24H IV 04/12/24 20:30 Vital Signs Vital Signs Date Time Temp Pulse Resp B/P (MAP) Pulse Ox O2 Delivery O2 Flow Rate FiO2 04/12/24 20:00 125 04/12/24 19:55 30 139/84 (102) 100 30 04/12/24 18:45 99.3 99.3 04/12/24 17:30 Mechanical Ventilator+ Physical Exam Gen.: Patient lying in bed in medical ICU. Sedated, intubated on mechanical ventilator. Head: Normocephalic, atraumatic. Eyes: PERRLA. Ears: Normal external anatomy. Throat: Endotracheal tube and orogastric tube in place. Neck: Supple, trachea midline. Chest: Transmitted breath sounds bilaterally. Decreased air entry bilaterally. No wheezing. Bibasilar crackles. Cardio vascular: Positive S1, positive S2. Regular rate and rhythm. Abdomen: Positive bowel sounds in all 4 quadrants. Soft, nontender, nondistended. : Chambers in place. Normal external genitalia. Rectal: Deferred Skin: Warm, dry. Intact. Extremities: 2+ radial pulses bilaterally. No lower extremity edema. Neuro: Sedated. Labs/Diagnostic Data Labs Test 04/12/24 21:35 04/12/24 19:10 04/12/24 18:15 04/12/24 04:19 Range/Units Blood Gas Specimen Type Arterial Blood Gas Sample Site Right radial Blood Gas Patient Temperature 37.0 Arterial Blood Date Drawn [id number] Arterial Blood pH 7.370 7.350-7.450 Arterial Blood Partial Pressure CO2 31.1 L 35.0-48.0 mmHg Arterial Blood Partial Pressure O2 93.8 83.0-108.0 mmHg Arterial Blood HCO3 17.6 L 21.0-28.0 mmol/L Arterial Blood Oxygen Saturation 96.9 94.0-98.0 % Arterial Blood Base Excess -6.5 L -2.0-3.0 mmol/L Arterial Blood Oxyhemoglobin 95.7 94.0-98.0 % Arterial Blood Carboxyhemoglobin 0.6 0.5-1.5 % Arterial Blood Methemoglobin 0.6 0.0-1.5 % Morgan Test Modified Blood Gas Total Hemoglobin 13.60 13.5-17.5 g/dL Blood Gas Set Respiration Rate 20.0 Blood Gas Modality Vent - ac Blood Gas Spontaneous Rate 30 FiO2 % 30.0 Blood Gas Tidal Volume 500.0 Blood Gas Spontaneous Tidal Volume 547 Blood Gas Inspiratory Pressure 19.0 Blood Gas PEEP or CPAP 5.0 Bl Gas Inspiratory/Expiratory Ratio 1:2 Lactic Acid Level 3.4 *H 0.4-2.0 mmol/L POC Glucose 79 70-106 mg/dl Blood Gas Critical Value Read Back Yes Blood Gas Notified Whom Dr. virgilio mckeon Blood Gas Notified Time [id number] Blood Gas Notified By Sheng rush enamel applier Test 04/12/24 03:49 04/12/24 03:37 Range/Units Urine Color Light-orange Yellow Urine Clarity Ex.turbid Clear Urine pH 5.5 5.0-9.0 Urine Specific [place] 1.031 1.001-1.035 Urine Protein 2+ H Negative Urine Ketones Trace Negative Urine Blood 3+ H Negative /uL Urine Nitrite Negative Negative Urine Bilirubin Negative Negative Urine Urobilinogen 3 H Negative mg/dL Urine Leukocyte Esterase 3+ Negative /uL Urine RBC 196 0 - 3 /hpf Urine WBC 1295 0 - 3 /hpf Urine Squamous Epithelial Cells Few <5 /hpf Urine Bacteria Few H None Seen /hpf Urine Hyaline Casts Few 0 - 2 /lpf Urine Mucus Few None Seen Urine Glucose Normal Normal mg/dL Urine Opiates Screen Neg NEGATIVE Urine Fentanyl Screen Pos NEGATIVE Urine Barbiturates Screen Neg NEGATIVE Urine Phencyclidine Screen Neg NEGATIVE Urine Amphetamines Screen Pos NEGATIVE Urine Benzodiazepines Screen Neg NEGATIVE Urine Cocaine Screen Neg NEGATIVE Urine Cannabinoids Screen Pos NEGATIVE White Blood Count 8.1 4.4-10.8 10^3/uL Red Blood Count 3.46 L 4.5-5.90 10^6/uL Hemoglobin 10.4 L 13.5-17.5 g/dL Hematocrit 32.5 L 41.0-53.0 % Mean Corpuscular Volume 94.0 80.0-100.0 fL Mean Corpuscular Hemoglobin 30.1 28.0-32.0 pg Mean Corpuscular Hemoglobin Concent 32.0 32.0-36.0 g/dL Red Cell Distribution Width 14.0 11.8-14.3 % Platelet Count 328 140-450 10^3/uL Mean Platelet Volume 7.8 6.9-10.8 fL Neutrophils (%) (Auto) 37.0-80.0 % Lymphocytes (%) (Auto) 10.0-50.0 % Monocytes (%) (Auto) 0.0-12.0 % Basophils (%) (Auto) 0.0-2.0 % Neutrophils # (Auto) 1.6-8.6 10 ^3/uL Lymphocytes # (Auto) 0.4-5.4 10 ^3/uL Monocytes # (Auto) 0-1.3 10 ^3/uL Differential Total Cells Counted 100.0 100 Neutrophils % (Manual) 29 L 37.0-80.0 Band Neutrophils % (Manual) 2 Lymphocytes % (Manual) 56 H 10.0-50.0 Monocytes % (Manual) 6 0-12 Eosinophils % (Manual) 1 0-7 Basophils % (Manual) 0 0.0-2.0 Metamyelocytes % (manual) 1 Myelocytes % (Manual) 4 Promyelocytes % (Manual) 0 Blast Cells % (Manual) 0 Nucleated Red Blood Cells 2.0 % Reactive Lymphocytes 1 Platelet Estimate Adequate Sodium Level 147 H 136-145 mmol/L Potassium Level 3.5 3.5-5.1 mmol/L Chloride Level 108 H 98-107 mmol/L Carbon Dioxide Level 23 20-31 mmol/L Anion Gap 16 H 5-15 Blood Urea Nitrogen 19 9-23 mg/dL Creatinine 1.35 H 0.700-1.30 mg/dL Glomerular Filtration Rate Calc 70 >90 mL/min BUN/Creatinine Ratio 14.1 10.0-20.0 Serum Glucose 268 H 74-106 mg/dL Calcium Level 7.8 L 8.7-10.4 mg/dL Troponin I High Sensitivity 90 *H </=54 ng/L Assessment Impression: Acute hypoxic respiratory failure On mechanical ventilator Drug overdose Status post cardiac arrest Return of spontaneous circulation Metabolic acidosis Lactic acidosis Elevated troponin Acute kidney injury Plan: s/p intubation on mechanical ventilator Urine toxicology was positive for fentanyl and amphetamines. CT head was negative. CXR image and report reviewed. Devices in place. Bilateral airspace opacities. ABG reviewed. Acidemia due to metabolic acidosis. Repeat ABG this evening. Compensated. On assist control with a respiratory rate of 20, tidal volume 500, peep of five, FiO2 of 30%. Titrate FIO2 to keep O2 saturation above 92%. VAP bundle Daily ABG and CXR while intubated. Sedate for ventilatory synchrony Start pressors if necessary for hemodynamic support. Titrate to keep MAP above 65 mmHg/SBP above 90 mmHg. Continue antibiotics. Started vancomycin and Zosyn. F/u cultures. Monitor renal function due to Acute kidney injury. Monitor electrolytes. Supplement as necessary. Monitor ins and outs DVT prophylaxis. Condition: Critical Prognosis: Poor given multiple comorbidities. Rest of plan per hospitalist and other consultants. A total of 35 minutes of critical care time was spent reviewing the patient record, examining the patient, making a diagnostic and therapeutic plan, discussing this plan with the medical personnel, following up on diagnostic studies and following the patient for clinical stability excluding any and all procedures. At least 50% of this time was spent in direct, [id number] contact. Thank you Dr. Vazquez for allowing me to participate in this patient's care. Further recommendations will depend on patient's clinical course. Please do not hesitate to contact me if you have any questions or concerns. This medical document was created using an electronic medical record system with Dragon computerized dictation system. Although this document has been carefully reviewed, there may still be some phonetic and typographical errors. These areas are purely typographical due to imperfections of the software programs, and do not reflect any compromise in the patient's medical care. Plan discussed with: Other (SETH Larios, RT, MD) MARISEL AGUILA MD Apr 12, 2024 22:12
[2024-04-12] MEDS: PIPERACILLIN-TAZOB 3.375GM 100 ML IV SCH (22:27)
[2024-04-13] VITALS (109 sets, daily range): BP systolic 89–130; BP diastolic 44–82; PULSE 100–125; RESP 20–28; TEMP 97.3–100.4; O2SAT 97–100
[2024-04-13 04:26] LABS: Basophils # (auto) 0 10 ^3/uL (0-0.2); Basophils % (auto) 0.1 % (0.0-2.0); Eosinophils # (auto) 0 10 ^3/uL (0-0.8); Hematocrit 36.9 % (41.0-53.0); Hemoglobin 12.5 g/dL (13.5-17.5); Lymphocytes % (auto) 6.4 % (10.0-50.0); Mean Corpuscular Volume 91.3 fL (80.0-100.0); Neutrophils # (auto) 13.8 10 ^3/uL (1.6-8.6); Neutrophils % (auto) 87.5 % (37.0-80.0); Platelet Count (auto) 346 10^3/uL (140-450); Red Blood Cells 4.04 10^6/uL (4.5-5.90); Red Cell Distribution Width 13.9 % (11.8-14.3); White Blood Cell 15.8 10^3/uL (4.4-10.8)
[2024-04-13 04:30] LABS: Chloride 110 mmol/L (98-107); Sodium 145 mmol/L (136-145)
[2024-04-13 04:31] LABS: Anion Gap 13 (5-15); Calcium 8.8 mg/dL (8.7-10.4); Carbon Dioxide 22 mmol/L (20-31)
[2024-04-13 04:37] LABS: BUN/Creatinine Ratio 18.7 (10.0-20.0)
[2024-04-13 04:48] LABS: Blood Urea Nitrogen 31 mg/dL (9-23); Glucose 112 mg/dL (74-106)
[2024-04-13 06:45] LABS: Base Excess -6.2 mmol/L (-2.0-3.0)
[2024-04-13] MEDS: ENOXAPARIN SOD 40 MG/0.4 ML SYRINGE SC SCH (07:58)
--- NOTE | 2024-04-13 08:24 | DVH ---
CHEST RADIOGRAPH Indication: intubated Technique: Single frontal view of the chest was obtained Comparison: XY CHEST XRAY 1 VIEW on DOS: 04/12/24, XY CHEST XRAY 1 VIEW on DOS: 04/12/24, XY CHEST XR AY 1 VIEW on DOS: 04/12/24 FINDINGS: Lines and Tubes: The endotracheal tube terminates 7 cm above the placido. The enteric tube has been ad vanced and the tip projects over the GE junction. The side port projects over the distal esophagus. Lungs: Slightly improved bilateral airspace disease. Pleura: No effusion. No pneumothorax. Cardiomediastinal contours: Unremarkable Bones: No acute osseous abnormality. IMPRESSION: 1. Enteric tube side port remains above the GE junction and the tip barely within the gastric lumen . Advancement recommended. 2. Improvement of bilateral airspace disease.
[2024-04-13] MEDS ORDERED: ENOXAPARIN SOD 30 MG/0.3 ML SYRINGE SC SCH (10:00)
[2024-04-13] MEDS ORDERED: cefTRIAXone 1GM/50ML D5W 50 ML IV SCH (10:00)
[2024-04-13 10:32] LABS: Magnesium 1.7 mg/dL (1.6-2.6)
[2024-04-13 10:34] LABS: Phosphorus 5.8 mg/dL (2.4-5.1)
[2024-04-13 11:51] LABS: Lactic Acid w/Reflex 2.9 mmol/L (0.4-2.0)
--- NOTE | 2024-04-13 12:14 | DVHPN2 ---
Assessment/Plan Assessment/Plan ICU progress note Subjective 33 yo M s/p cardiac arrest 2/2 possibly fentanyl, intubated and on mechanical ventilation. Down time approximately 12 minutes Objective Physical exam Sedated, intubated mechanically ventilated Synchronized with ventilator No gag, cough, corneal PERRLA, pinpoint Not responding to pain Clear breath sounds bilaterally S1-S2 tachycardia Abdomen soft nontender No lower extremity edema Point of care ultrasound done today and interpreted by me Cardiac: No pericardial effusion, severely decreased systolic function, mitral and tricuspid regurgitation, dilated LV, LA, IVC more than 2 cm with no excursion on inspiration in an intubated patient Lab Troponin elevation Normocytic anemia Creatinine elevation Elevated lactic acid Mildly elevated anion gap EKG LVH by voltage CXR ETT 7cm from placido, clear lungs Imaging CTH clear Assessment and plan Status post cardiac arrest Acute hypoxic respiratory failure Requiring mechanical ventilation and intubation Cardiac stenting versus dilated cardiomyopathy Heart failure with reduced ejection fraction Troponin elevation from cardiac arrest Lactic acidosis High anion gap metabolic acidosis from above JEISON/ATN Continue with ICU admission Extension Work Instructor consult appreciated Continue with mechanical ventilation Compensated, in sync with vents We will hold IV fluids for now Continue with Zosyn MRSA swab Daily SBT Trend creatinine, lactate Strict I&O Daily weights VAP bundle advance ETT 4cm Lines Chambers Maintain potassium of 4, phosphate of 3 and magnesium of 2 Diet NPO GI prophylaxis IV PPI DVT prophylaxis lovenox 65 minutes critical care time spent on this patient including evaluation, chart review, formulating plan and communication with team, excluding any procedures or point of care imaging Lung: No B-lines, no pleural effusion Plan discussed with: Patient Date of Service: Apr 13, 2024 Billing Provider: PAM PACE MD Common Visit Codes: [id number] INP/OBS CARE(HIGH), [id number] CARE 30-74 MIN, PROCEDURE ONLY (Cardiac point of care ultrasound [id number]) PAM PACE MD Apr 13, 2024 12:14
[2024-04-13] MEDS: MAGNESIUM SULFATE 1GM/100ML 100 ML IV SCH (12:28)
--- NOTE | 2024-04-13 13:06 | ECG ---
[facility] Test Date: 2024-04-12 Test Time: 05:02:54 Pat Name: GABRIEL VELARDE Department: er Room: [address] [place] [address] A Gender: M Reservations Manager: brenda : 1990 Requested By: SHANNON COOPER Order Number: [id number] Reading MD: Dale Vazquez Measurements Intervals [place] Rate: 103 P: 71 [place]: 127 QRS: 70 QRSD: 96 T: -90 QT: 347 QTc: 454 Interpretive Statements Sinus tachycardia Consider right atrial enlargement LVH with secondary repolarization abnormality consider inferior lateral ischemia. Electronically Signed On 04-16-2024 17:06:29 PST by Dale Vazquez Please click the below link to view image of tracing.
[2024-04-13 14:06] LABS: Basophils # (auto) 0 10 ^3/uL (0-0.2); Basophils % (auto) 0.3 % (0.0-2.0); Eosinophils # (auto) 0 10 ^3/uL (0-0.8); Eosinophils % (auto) 0.1 % (0.0-7.0); Hematocrit 38.9 % (41.0-53.0); Hemoglobin 12.7 g/dL (13.5-17.5); Lymphocytes % (auto) 6.6 % (10.0-50.0); Mean Corpuscular Hemoglobin 30.1 pg (28.0-32.0); Mean Corpuscular Hgb Conc. 32.6 g/dL (32.0-36.0); Mean Corpuscular Volume 92.2 fL (80.0-100.0); Monocytes # (auto) 1.2 10 ^3/uL (0-1.3); Monocytes % (auto) 7.4 % (0.0-12.0); Neutrophils # (auto) 13.5 10 ^3/uL (1.6-8.6); Neutrophils % (auto) 85.6 % (37.0-80.0); Platelet Count (auto) 359 10^3/uL (140-450); Red Blood Cells 4.22 10^6/uL (4.5-5.90); Red Cell Distribution Width 14.3 % (11.8-14.3); White Blood Cell 15.7 10^3/uL (4.4-10.8)
[2024-04-13 14:19] LABS: Chloride 111 mmol/L (98-107); Potassium 4.6 mmol/L (3.5-5.1); Sodium 144 mmol/L (136-145)
[2024-04-13 14:20] LABS: Anion Gap 10 (5-15); Carbon Dioxide 23 mmol/L (20-31)
[2024-04-13 14:21] LABS: Calcium 8.7 mg/dL (8.7-10.4)
[2024-04-13 14:25] LABS: Glucose 145 mg/dL (74-106)
[2024-04-13 14:26] LABS: BUN/Creatinine Ratio 20.1 (10.0-20.0); Blood Urea Nitrogen 34 mg/dL (9-23)
[2024-04-13 14:40] LABS: Base Excess -2.7 mmol/L (-2.0-3.0)
--- NOTE | 2024-04-13 16:05 | DVHSR ---
APPROVED REPORT EXAM: Two-dimensional and M-mode echocardiogram with Doppler, color Doppler and Optison. Blood Pressure: 117/76 mmHg INDICATION shock,s/pcardiac arrest DIMENSIONS LVDd6.1 (3.8-5.7cm)LA (2D)4.4 (1.9-4.0cm)Aortic Root3.3 (2.0-3.7cm) LVDs5.6 (2.5-4.0cm)LA (MM) (1.9-4.0cm)Aortic Cusp Exc2.0 (1.5-2.0cm) EF (%) 18.1 (55-70%)Rt. Atrium4.3 (1.9-4.0cm)Asc. Aorta cm IVSd1.1 (0.7-1.1cm)RV (D)3.8 (1.8-2.4cm) PWd1.2 (0.7-1.1cm) Mitral Valve MitralMitral Stenosis E wave0.87m/sMV Mean GR.mmHg A wavem/sMV Peak GR.63mmHg E/A ratio0.02D MVAcm2 Aortic Valve Aortic ValveAortic Stenosis V10.81m/Amaris Mean GR.2mmHg V20.90m/Amaris Peak GR.3mmHg Pulmonic Valve V20.60m/s Tricuspid Valve TR Velocity2.82m/s [id number] Other Information Technically limited study due to on vent. Conclusion Severely dilated left ventricle. Severely reduced left ventricular systolic function. 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 Estimated ejection fraction of 15%. Severely dilated right ventricle. Severely reduced right ventricular systolic function. Slightly in creased right ventricular systolic [id number] mm of mercury. Moderately dilated right and left atria. There is moderate mitral valve regurgitation. There is moderate tricuspid valve regurgitation. The aortic valve appears normal structure function. The pulmonary valve is grossly normal. There is a small pericardial effusion.
[2024-04-13 17:01] LABS: Lactic Acid w/Reflex 3.1 mmol/L (0.4-2.0)
--- NOTE | 2024-04-13 21:08 | DVHPN2 ---
Progress Note - Dictate Date Seen: Apr 13, 2024 Medical Necessity Reason Pt with a Central, PICC or Fol: Yes The following are medically ne: Hercules Catheter Reason for hercules catheter: Strict I&O Subjective Patient seen and examined at bedside. Sedated, intubated on mechanical ventilator. Overnight events reviewed. vital signs Vital Sign Date Time Temp Pulse Resp B/P (MAP) Pulse Ox O2 Delivery O2 Flow Rate FiO2 04/13/24 20:17 105 24 107/71 (83) 100 30 04/13/24 18:30 99.1 210.4 04/13/24 17:31 Mechanical Ventilator+ Total Intake and Output 04/12/24 04/12/24 04/13/24 14:59 22:59 06:59 Intake Total 900 ml 1084.0 ml 1568.6 ml Output Total 600 ml 425 ml Balance 900 ml 484.0 ml 1143.6 ml medications Current Medications Medications Dose Ordered Sig/Moni Route Start Time Stop Time Status Last Admin Dose Admin Midazolam HCl 50 ml @ 1 mls/hr Q24H IV 04/12/24 04:00 04/13/24 06:55 12 MLS/HR Fentanyl Citrate 250 ml @ 2.5 mls/hr Q24H IV 04/12/24 04:30 04/13/24 07:33 5 MLS/HR Diagnostic Test (Pha) 1 strip Q6HR 04/12/24 12:00 04/13/24 18:00 1 STRIP Insulin Human Regular Q6HR SC 04/12/24 12:00 Dextrose 50 ml UD PRN IV 04/12/24 11:30 Diagnostic Test (Pha) 1 strip Q6HR 04/12/24 12:00 UNV Insulin Human Regular Q6HR SC 04/12/24 12:00 UNV Dextrose 50 ml UD PRN IV 04/12/24 11:30 UNV Acetaminophen 650 mg Q6HP PRN [place] 04/12/24 14:00 04/12/24 23:22 650 MG Piperacillin Sod/ Tazobactam Sod 100 ml @ 25 mls/hr Q8HR IV 04/12/24 22:00 04/13/24 12:34 25 MLS/HR Propofol 100 ml @ 2.4 mls/hr Q24H IV 04/12/24 20:30 04/13/24 06:58 7.2 MLS/HR Enoxaparin Sodium 30 mg DAILY SC 04/13/24 10:00 UNV Enoxaparin Sodium 40 mg DAILY SC 04/13/24 10:00 04/13/24 07:58 40 MG Pantoprazole Sodium 40 mg DAILY IV 04/14/24 10:00 objective Gen.: Patient lying in bed in medical ICU. Sedated, intubated on mechanical ventilator. Head: Normocephalic, atraumatic. Eyes: PERRLA. Ears: Normal external anatomy. Throat: Endotracheal tube and orogastric tube in place. Neck: Supple, trachea midline. Chest: Transmitted breath sounds bilaterally. Decreased air entry bilaterally. No wheezing. Bibasilar crackles. Cardiovascular: Positive S1, positive S2. Regular rate and rhythm. Abdomen: Positive bowel sounds in all 4 quadrants. Soft, nontender, nondistended. : Hercules in place. Normal external genitalia. Rectal: Deferred. Skin: Warm, dry. Intact. Extremities: 2+ radial pulses bilaterally. No lower extremity edema. Neuro: Sedated. laboratory and microbiology Laboratory Tests 04/13/24 13:46 Test 04/13/24 13:46 Range/Units Serum Glucose 145 H 74-106 mg/dL Assessment/Plan Impression: Acute hypoxic respiratory failure On mechanical ventilator Drug overdose Status post cardiac arrest Return of spontaneous circulation Metabolic acidosis Lactic acidosis Elevated troponin Acute kidney injury Events: Remains on vent support On assist control with a respiratory rate of 20, tidal volume 500, PEEP of 5, FiO2 of 30%. RR increased to 24, PEEP increased to 8 ABG reviewed, c/w acidemia due to metabolic acidosis. Taper sedation as tolerated Patient riding vent. Monitor neurologic status - pinpoint pupils. Continue antibiotics - vancomycin and Zosyn. WBC of 15.8 K Obtain lactic acid, mag, phos. JEISON, increased creatinine. Monitor renal function. Monitor electrolytes. Supplement as necessary. Continue IV fluids w/ NS at 150 ml/hr. Monitor lactic acid. Labs and imaging reviewed. Rest of plan as noted below. Plan: s/p intubation on mechanical ventilator Urine toxicology was positive for fentanyl and amphetamines. CT head was negative. CXR image and report reviewed. Devices in place. Bilateral airspace opacities. ABG reviewed. Acidemia due to metabolic acidosis. Repeat ABG in the PM compensated. vent settings; Assist control with a respiratory rate of 24, tidal volume 500, PEEP of 8, FiO2 of 30%. Titrate FIO2 to keep O2 saturation above 92%. VAP bundle Daily ABG and CXR while intubated. Sedate for ventilatory synchrony Start pressors if necessary for hemodynamic support. Titrate to keep MAP above 65 mmHg/SBP above 90 mmHg. Continue antibiotics. Started vancomycin and Zosyn. F/u cultures. Monitor renal function due to Acute kidney injury. Monitor electrolytes. Supplement as necessary. Monitor ins and outs DVT prophylaxis. Condition: Critical Prognosis: Poor given multiple comorbidities. Rest of plan per hospitalist and other consultants. A total of 35 minutes of critical care time was spent reviewing the patient record, examining the patient, making a diagnostic and therapeutic plan, discussing this plan with the medical personnel, following up on diagnostic studies and following the patient for clinical stability excluding any and all procedures. At least 50% of this time was spent in direct, [id number] contact. Thank you Dr. Vazquez for allowing me to participate in this patient's care. Further recommendations will depend on patient's clinical course. Please do not hesitate to contact me if you have any questions or concerns. This medical document was created using an electronic medical record system with [employer] dictation system. Although this document has been carefully reviewed, there may still be some phonetic and typographical errors. These areas are purely typographical due to imperfections of the software programs, and do not reflect any compromise in the patient's medical care. Plan discussed with: Other (SETH Fenton) Critical Care Time(min): 35 MARISEL AGUILA MD Apr 13, 2024 21:08
[2024-04-14] VITALS (96 sets, daily range): BP systolic 80–104; BP diastolic 42–68; PULSE 75–106; RESP 16–28; TEMP 96.6–99.5; O2SAT 90–100
[2024-04-14 03:33] LABS: Basophils # (auto) 0 10 ^3/uL (0-0.2); Basophils % (auto) 0.1 % (0.0-2.0); Eosinophils # (auto) 0 10 ^3/uL (0-0.8); Eosinophils % (auto) 0.1 % (0.0-7.0); Hematocrit 36.3 % (41.0-53.0); Hemoglobin 11.9 g/dL (13.5-17.5); Lymphocytes # (auto) 0.6 10 ^3/uL (0.4-5.4); Lymphocytes % (auto) 4.3 % (10.0-50.0); Mean Corpuscular Hemoglobin 30.2 pg (28.0-32.0); Mean Corpuscular Hgb Conc. 32.7 g/dL (32.0-36.0); Mean Corpuscular Volume 92.3 fL (80.0-100.0); Monocytes # (auto) 0.9 10 ^3/uL (0-1.3); Monocytes % (auto) 6.5 % (0.0-12.0); Platelet Count (auto) 341 10^3/uL (140-450); Red Blood Cells 3.93 10^6/uL (4.5-5.90); White Blood Cell 14.6 10^3/uL (4.4-10.8)
[2024-04-14 03:54] LABS: Alanine Aminotransferase 17 U/L (7-40); Albumin 3.4 g/dL (3.2-4.8); Alkaline Phosphatase 119 U/L (46-116); Anion Gap 9 (5-15); Aspartate Aminotransferase 121 U/L (13-40); BUN/Creatinine Ratio 26.1 (10.0-20.0); Blood Urea Nitrogen 37 mg/dL (9-23); Calcium 9.1 mg/dL (8.7-10.4); Carbon Dioxide 25 mmol/L (20-31); Chloride 110 mmol/L (98-107); Glucose 147 mg/dL (74-106); Magnesium 2.3 mg/dL (1.6-2.6); Phosphorus 3.4 mg/dL (2.4-5.1); Potassium 4.4 mmol/L (3.5-5.1); Sodium 144 mmol/L (136-145)
[2024-04-14 04:01] LABS: Lactic Acid w/Reflex 2.9 mmol/L (0.4-2.0)
--- NOTE | 2024-04-14 04:32 | DVH ---
CHEST RADIOGRAPH Indication: ROUTINE, PT INTUBATED Technique: Single frontal view of the chest was obtained Comparison: XY CHEST PORTABLE on DOS: 04/13/24 FINDINGS: Lines and Tubes: The endotracheal tube terminates 6.0 cm above. The enteric tube courses below the le ft hemidiaphragm and the tip extends outside the field of view. Lungs: Diffuse, right upper, middle and lower lobe consolidation. Left upper lobe opacities similar t o prior study. Pleura: No effusion. No pneumothorax. Cardiomediastinal contours: Unremarkable Bones: No acute osseous abnormality. IMPRESSION: 1. Endotracheal tube terminates 6 cm above the placido. 2. Bilateral opacities, right greater than left similar to prior study.
[2024-04-14] MEDS: NOREPINEPHRINE 8 MG/250ML KIT 250 ML IV ONE (05:14)
[2024-04-14] MEDS: NOREPINEPHRINE 8 MG/250ML KIT 250 ML IV SCH (05:15)
[2024-04-14 07:45] LABS: Base Excess 0.5 mmol/L (-2.0-3.0)
--- NOTE | 2024-04-14 08:28 | DVHPN2 ---
Assessment/Plan Assessment/Plan ICU progress note Subjective 33 yo M s/p cardiac arrest 2/2 possibly fentanyl, intubated and on mechanical ventilation. Down time approximately 12 minutes. Pinpoint pupil, no reflex. Patient is seen by me today during rounds Increased O2 req and softer BP overnight. Stable cr and lactate. will repeat ct head today. will schedule family conference. off sedation 24 hours. Objective Physical exam Sedated, intubated mechanically ventilated Synchronized with ventilator No gag, cough, corneal PERRLA, pinpoint Not responding to pain Clear breath sounds bilaterally S1-S2 tachycardia Abdomen soft nontender No lower extremity edema Point of care ultrasound done today and interpreted by me Cardiac: No pericardial effusion, severely decreased systolic function, mitral and tricuspid regurgitation, dilated LV, LA, IVC more than 2 cm with no excursion on inspiration in an intubated patient Lab Troponin elevation Normocytic anemia Creatinine elevation, stable Elevated lactic acid, stable leukocytosis Mildly elevated anion gap EKG LVH by voltage CXR ETT 7cm from placido, clear lungs Imaging CTH clear Assessment and plan Status post cardiac arrest Acute hypoxic respiratory failure Requiring mechanical ventilation and intubation Cardiac stunning versus dilated cardiomyopathy Heart failure with reduced ejection fraction Troponin elevation from cardiac arrest Lactic acidosis High anion gap metabolic acidosis from above JEISON/ATN Continue with ICU admission Senior Investment Manager consult appreciated Continue with mechanical ventilation Compensated, in sync with vents We will hold IV fluids for now Continue with Zosyn MRSA swab Daily SBT Trend creatinine, lactate Strict I&O Daily weights VAP bundle advance ETT 2cm echo reviewed, severe DCM will do spot dose lasix to target -500 to -1L repeat CTH today pressor on standby midlin placement, remove fem TLC will arrange family conference Ryann Nogueira fem TLC to be removed Maintain potassium of 4, phosphate of 3 and magnesium of 2 Diet NPO GI prophylaxis IV PPI DVT prophylaxis lovenox prognosis poor condition critical 61 minutes critical care time spent on this patient including evaluation, chart review, formulating plan and communication with team, excluding any procedures or point of care imaging Plan discussed with: Other My Orders Orders - PAM PACE MD Procedure Category Date Status Time Echo 2d Mode Cardiac US 04/13/24 Resulted DOP 14:51 Pantoprazole PHA 04/14/24 In Process (Protonix) 10:00 Furosemide Injection PHA 04/14/24 Logged (Lasix Injection) 08:30 Date of Service: Apr 14, 2024 Billing Provider: PAM PACE MD Common Visit Codes: [id number] INP/OBS CARE(HIGH), [id number] CARE 30-74 MIN, PROCEDURE ONLY PAM PACE MD Apr 14, 2024 08:28
[2024-04-14] MEDS: FUROSEMIDE 40 MG/4 ML VIAL IV ONE (09:38)
[2024-04-14] MEDS: PANTOPRAZOLE 40 MG/10 ML VIAL INJ IV SCH (09:38)
--- NOTE | 2024-04-14 10:29 | DVH ---
CHEST RADIOGRAPH Indication: advance ETT Technique: Single frontal view of the chest was obtained Comparison: XY CHEST XRAY 1 VIEW on DOS: 04/14/24, XY CHEST PORTABLE on DOS: 04/13/24, XY CHEST XRAY 1 VIEW on DOS: 04/12/24, XY CHEST XRAY 1 VIEW on DOS: 04/12/24, XY CHEST XRAY 1 VIEW on DOS: 04/14/24 FINDINGS: Lines and Tubes: The endotracheal tube terminates 3 cm above. The enteric tube courses below the left hemidiaphragm and the tip extends outside the field of view. Lungs: Diffuse, right upper, middle and lower lobe consolidation. Left upper lobe opacities similar t o prior study. Pleura: No effusion. No pneumothorax. Cardiomediastinal contours: Unremarkable Bones: No acute osseous abnormality. IMPRESSION: 1. Endotracheal tube terminates 3 cm above the placido. 2. Bilateral opacities, right greater than left similar to prior study.
--- NOTE | 2024-04-14 12:16 | DVH ---
EXAM: CT STROKE CTH INDICATION: Pain TECHNIQUE: CT of the head without intravenous contrast. Radiation Dose Information: CT Dose: CTDI volume is 59 mGy. Dose-length product is 1050 mGy*cm The dose indicators for CT are the volume Computed Tomography (CT) Dose Index (CTDIvol) and the Dose Length Product (DLP), and are measured in units of mGy and mGy-cm, respectively. These indicators are not patient dose, but values generated from the CT scanner acquisition factors. The report includes radiation exposure data for exposures received during this examination. COMPARISON: CT HEAD WITHOUT CONTRAST on DOS: 04/12/24 FINDINGS: Diffuse cerebral edema is present. There is loss of the servin-white matter differentiation suggesting diffuse cerebral edema. There is diffuse effacement of the cerebral sulci. The lateral and 3rd ventri cles are slit-like. Diffuse sinusitis IMPRESSION: Diffuse cerebral edema. Critical Result: CEREBRAL EDEMA Findings discussed with Rox MALIK) at 04/14/2024 12:10 PM, and acknowledged receipt and understandi ng of the findings. ..
--- NOTE | 2024-04-14 19:30 | PRN ---
Misceleneous Note Note Note Called ENRIQUE Jean Saucedo [phone] to give update on patient. Informed regarding current critical condition and poor prognosis. She will be the medical decision maker. Currently patient remain full code, however informed regarding patient's unlikely meaningful recovery. All questions answered. Family expressed understanding. Will have family conference tomorrow 4pm with nearby family and ENRIQUE will join online. More than 30 minutes spent in advanced care planning, including discussing code status, medical decision maker, goals of care and disposition planning. Date of Service: Apr 14, 2024 Billing Provider: PAM PACE MD Common Visit Codes: PROCEDURE ONLY Secondary Visit Codes: [id number] CARE PLAN 30 MINUTES PAM PACE MD Apr 14, 2024 19:30
--- NOTE | 2024-04-14 19:56 | DVHPN2 ---
Progress Note - Dictate Date Seen: Apr 14, 2024 Medical Necessity Reason Pt with a Central, PICC or Fol: Yes The following are medically ne: Hercules Catheter Reason for hercules catheter: Strict I&O Subjective Patient seen and examined at bedside. Sedated, intubated on mechanical ventilator. Overnight events reviewed. vital signs Vital Sign Date Time Temp Pulse Resp B/P (MAP) Pulse Ox O2 Delivery O2 Flow Rate FiO2 04/14/24 18:30 99.3 103 28 100/57 (71) 99 210.7 04/14/24 18:00 30 04/14/24 18:00 Mechanical Ventilator+ Total Intake and Output 04/13/24 04/13/24 04/14/24 15:00 23:00 07:00 Intake Total 753 ml 100 ml 125 ml Output Total 500 ml 375 ml Balance 753 ml -400 ml -250 ml medications Current Medications Medications Dose Ordered Sig/Moni Route Start Time Stop Time Status Last Admin Dose Admin Diagnostic Test (Pha) 1 strip Q6HR 04/12/24 12:00 04/14/24 18:39 1 STRIP Insulin Human Regular Q6HR SC 04/12/24 12:00 04/14/24 18:40 2 UNITS Dextrose 50 ml UD PRN IV 04/12/24 11:30 Diagnostic Test (Pha) 1 strip Q6HR 04/12/24 12:00 UNV Insulin Human Regular Q6HR SC 04/12/24 12:00 UNV Dextrose 50 ml UD PRN IV 04/12/24 11:30 UNV Acetaminophen 650 mg Q6HP PRN [place] 04/12/24 14:00 04/12/24 23:22 650 MG Piperacillin Sod/ Tazobactam Sod 100 ml @ 25 mls/hr Q8HR IV 04/12/24 22:00 04/14/24 14:58 25 MLS/HR Enoxaparin Sodium 30 mg DAILY SC 04/13/24 10:00 UNV Enoxaparin Sodium 40 mg DAILY SC 04/13/24 10:00 04/14/24 09:38 40 MG Pantoprazole Sodium 40 mg DAILY IV 04/14/24 10:00 04/14/24 09:38 40 MG Norepinephrine Bitartrate 250 ml @ 3.75 mls/hr Q24H IV 04/14/24 05:15 04/14/24 09:44 3.75 MLS/HR objective Gen.: Patient lying in bed in medical ICU. Sedated, intubated on mechanical ventilator. Head: Normocephalic, atraumatic. Eyes: PERRLA. Ears: Normal external anatomy. Throat: Endotracheal tube and orogastric tube in place. Neck: Supple, trachea midline. Chest: Transmitted breath sounds bilaterally. Decreased air entry bilaterally. No wheezing. Bibasilar crackles. Cardiovascular: Positive S1, positive S2. Regular rate and rhythm. Abdomen: Positive bowel sounds in all 4 quadrants. Soft, nontender, nondistended. : Hercules in place. Normal external genitalia. Rectal: Deferred. Skin: Warm, dry. Intact. Extremities: 2+ radial pulses bilaterally. No lower extremity edema. Neuro: Sedated. laboratory and microbiology Laboratory Tests 04/14/24 03:07 Test 04/14/24 03:07 Range/Units Serum Glucose 147 H 74-106 mg/dL Assessment/Plan Impression: Acute hypoxic respiratory failure On mechanical ventilator Drug overdose Status post cardiac arrest Return of spontaneous circulation Metabolic acidosis Lactic acidosis Elevated troponin Acute kidney injury Events: Remains on vent support On assist control with a respiratory rate of 24, tidal volume 500, PEEP of 8, FiO2 of 30%. Increase RR to 28, increase FiO2 to 40% CT head notable for findings of anoxic brain injury, diffuse cerebral edema. CXR demonstrates bilateral opacities, right greater than left, similar to prior study. Advance ET tube by 2 cm. ABG reviewed, notable for alkalemia. Pressors for hemodynamic support. On Levophed 2 mcg/min Titrate to keep MAP above 65 mmHg/SBP above 90 mmHg. Continue antibiotics - Zosyn. WBC trending down, 14.6 K Taper sedation as tolerated Patient riding vent. Monitor neurologic status - pinpoint pupils. JEISON, increased creatinine. Monitor renal function. Monitor electrolytes. Supplement as necessary. Continue IV fluids w/ NS at 150 ml/hr. Monitor lactic acid. Overall poor prognosis. Labs and imaging reviewed. Rest of plan as noted below. Plan: s/p intubation on mechanical ventilator Urine toxicology was positive for fentanyl and amphetamines. CT head was negative. CXR image and report reviewed. Devices in place. Bilateral airspace opacities. ABG reviewed. Acidemia due to metabolic acidosis. Repeat ABG in the PM compensated. vent settings; changed to assist control with respiratory rate of 28, tidal volume 500, PEEP of 8, FiO2 of 40%. Titrate FIO2 to keep O2 saturation above 92%. VAP bundle Daily ABG and CXR while intubated. Sedate for ventilatory synchrony Pressors as necessary for hemodynamic support. Titrate to keep MAP above 65 mmHg/SBP above 90 mmHg. Continue antibiotics. Started vancomycin and Zosyn. F/u cultures. Monitor renal function due to Acute kidney injury. Monitor electrolytes. Supplement as necessary. Monitor ins and outs DVT prophylaxis. Condition: Critical Prognosis: Poor given multiple comorbidities. Rest of plan per hospitalist and other consultants. A total of 35 minutes of critical care time was spent reviewing the patient record, examining the patient, making a diagnostic and therapeutic plan, discussing this plan with the medical personnel, following up on diagnostic studies and following the patient for clinical stability excluding any and all procedures. At least 50% of this time was spent in direct, [id number] contact. Thank you Dr. Vazquez for allowing me to participate in this patient's care. Further recommendations will depend on patient's clinical course. Please do not hesitate to contact me if you have any questions or concerns. This medical document was created using an electronic medical record system with [employer] dictation system. Although this document has been carefully reviewed, there may still be some phonetic and typographical errors. These areas are purely typographical due to imperfections of the software programs, and do not reflect any compromise in the patient's medical care. Dietary Evaluation Review Comments: 1) If GI is accessible consider Jevity 1.2 @ 50 ml/hr x 24 hrs goal rate as tolerated 2) If pt remains NPO >7 days consider TPN to meet a least 75% of estimated needs 3) Advance pt diet when medically feasible to a Cardiac diet 4) Continue current plan of care Expected Outcomes/Goals: 1) Pt to receive nutrition support within 7 days of NPO status 2) Pt diet to advance 3) F/.U in 2-3 days Plan discussed with: Other (SETH Gramajo) Critical Care Time(min): 35 MARISEL AGUIAL MD Apr 14, 2024 19:55
[2024-04-15] VITALS (102 sets, daily range): BP systolic 102–175; BP diastolic 48–128; PULSE 100–134; RESP 15–34; TEMP 98.4–100.8; O2SAT 96–100
[2024-04-15 03:53] LABS: Basophils # (auto) 0 10 ^3/uL (0-0.2); Basophils % (auto) 0.2 % (0.0-2.0); Eosinophils # (auto) 0.1 10 ^3/uL (0-0.8); Eosinophils % (auto) 0.6 % (0.0-7.0); Hematocrit 34.2 % (41.0-53.0); Hemoglobin 11.5 g/dL (13.5-17.5); Lymphocytes % (auto) 7.2 % (10.0-50.0); Mean Corpuscular Hemoglobin 30.4 pg (28.0-32.0); Mean Corpuscular Hgb Conc. 33.5 g/dL (32.0-36.0); Mean Corpuscular Volume 90.7 fL (80.0-100.0); Monocytes # (auto) 0.8 10 ^3/uL (0-1.3); Monocytes % (auto) 5.7 % (0.0-12.0); Neutrophils # (auto) 11.8 10 ^3/uL (1.6-8.6); Neutrophils % (auto) 86.3 % (37.0-80.0); Platelet Count (auto) 343 10^3/uL (140-450); Red Blood Cells 3.77 10^6/uL (4.5-5.90); Red Cell Distribution Width 14.2 % (11.8-14.3); White Blood Cell 13.7 10^3/uL (4.4-10.8)
[2024-04-15 03:57] LABS: Alanine Aminotransferase 14 U/L (7-40); Albumin 3.6 g/dL (3.2-4.8); Alkaline Phosphatase 111 U/L (46-116); Anion Gap 9 (5-15); Aspartate Aminotransferase 124 U/L (13-40); BUN/Creatinine Ratio 33.1 (10.0-20.0); Blood Urea Nitrogen 41 mg/dL (9-23); Calcium 9.2 mg/dL (8.7-10.4); Carbon Dioxide 24 mmol/L (20-31); Chloride 111 mmol/L (98-107); Glucose 116 mg/dL (74-106); Magnesium 2.2 mg/dL (1.6-2.6); Potassium 4.1 mmol/L (3.5-5.1); Sodium 144 mmol/L (136-145)
[2024-04-15 03:58] LABS: Bilirubin, Total 1.1 mg/dL (0.2-1.0); Total Protein 6.4 g/dL (5.7-8.2)
--- NOTE | 2024-04-15 05:18 | DVH ---
CHEST RADIOGRAPH Indication: INTUBATED Technique: Single frontal view of the chest was obtained COMPARISON: XY CHEST PORTABLE on DOS: 04/14/24, XY CHEST XRAY 1 VIEW on DOS: 04/14/24, XY CHEST MEI BLE on DOS: 04/13/24 FINDINGS: Lines and Tubes: Endotracheal tube and enteric catheter in satisfactory position. Lungs: Patchy bilateral airspace disease. Pleura: No effusion. No pneumothorax. Cardiomediastinal contours: Unremarkable Bones: Unremarkable IMPRESSION: Lines and tubes in satisfactory position. No significant interval change.
[2024-04-15] MEDS: dilTIAZem 25 MG/5 ML VIAL IV ONE (05:35)
[2024-04-15] MEDS: LABETALOL HCL 20 MG/4 ML VL IV ONE (06:37)
[2024-04-15 07:10] LABS: Base Excess -1.3 mmol/L (-2.0-3.0)
[2024-04-15] MEDS: NALOXONE HCL 1MG/ML 2ML SYRINGE ONE (08:42)
[2024-04-15] MEDS: NALOXONE HCL 1MG/ML 2ML SYRINGE IV ONE (08:49)
[2024-04-15] MEDS: CARVEDILOL 3.125 MG TAB PO SCH ×2 (09:50→20:55)
[2024-04-15] MEDS: SACUBITRIL-VALSARTAN 24mg/26mg TAB PO SCH ×2 (09:51→22:35)
[2024-04-15] MEDS: FUROSEMIDE 40 MG/4 ML VIAL IV SCH (09:51)
[2024-04-15 12:36] LABS: Base Excess -3.2 mmol/L (-2.0-3.0)
[2024-04-15] MEDS: POTASSIUM PHOSPHATE 44 MEQ in D5W 5% 250 ML IV ONE (14:18)
[2024-04-15] MEDS: MIDAZOLAM HCL 2MG/2ML 2ml VIAL (1mg/ml) IV ONE (14:23)
--- NOTE | 2024-04-15 15:00 | DVHPN2 ---
Assessment/Plan Assessment/Plan ICU progress note Subjective 33 yo M s/p cardiac arrest 2/2 possibly fentanyl, intubated and on mechanical ventilation. Down time approximately 12 minutes. Pinpoint pupil, no reflex. Patient is seen by me today during rounds Off sedation 48 hours, patient with slight twitching while checking gag, no response to pain, over breathing the vent. Brain edema in CT likely from hypoxic brain injury. Consult tele neuro to rule out nonepileptic seizure Objective Physical exam Sedated, intubated mechanically ventilated Synchronized with ventilator No gag, cough, corneal PERRLA, pinpoint Not responding to pain Clear breath sounds bilaterally S1-S2 tachycardia Abdomen soft nontender No lower extremity edema Point of care ultrasound done today and interpreted by me Cardiac: No pericardial effusion, severely decreased systolic function, mitral and tricuspid regurgitation, dilated LV, LA, IVC more than 2 cm with no excursion on inspiration in an intubated patient Lab Troponin elevation Normocytic anemia Creatinine elevation, stable Elevated lactic acid, stable leukocytosis Mildly elevated anion gap EKG LVH by voltage CXR ETT 7cm from placido, clear lungs Imaging CTH clear Repeat CT brain edema Assessment and plan Status post cardiac arrest Acute hypoxic respiratory failure Requiring mechanical ventilation and intubation Cardiac stunning versus dilated cardiomyopathy Heart failure with reduced ejection fraction Troponin elevation from cardiac arrest Lactic acidosis High anion gap metabolic acidosis from above JEISON/ATN Continue with ICU admission Communications Marketing Intern consult appreciated Continue with mechanical ventilation Compensated, in sync with vents We will hold IV fluids for now Continue with Zosyn MRSA swab Daily SBT Trend creatinine, lactate Strict I&O Daily weights VAP bundle advance ETT 2cm echo reviewed, severe DCM will do spot dose lasix to target -500 to -1L repeat CTH today pressor on standby midlin placement, remove fem TLC will arrange family conference Tele neuro to rule out nonepileptic seizure We will push Versed for vent synchrony for now Start GDMT, Coreg and Entresto Lines Chambers, Midline Maintain potassium of 4, phosphate of 3 and magnesium of 2 Diet NPO GI prophylaxis IV PPI DVT prophylaxis lovenox prognosis poor condition critical 97 minutes critical care time spent on this patient including evaluation, chart review, formulating plan and communication with team, excluding any procedures or point of care imaging Plan discussed with: Patient My Orders Orders - PAM PACE MD Procedure Category Date Status Time D/C Tlc KIM 04/14/24 In Process 14:59 Acetaminophen PHA 04/15/24 In Process Solution Oral 08:15 Furosemide Injection PHA 04/15/24 In Process (Lasix Injection) 10:00 [place] Neuro Consult CONS 04/15/24 Transmitted 08:54 Abg W/ Co-Ox RT 04/15/24 Logged 12:09 Carvedilol Tablet PHA 04/15/24 In Process (Coreg Tablet) 22:00 Sacubitril-Valsartan PHA 04/15/24 In Process (Entresto 24-26 Mg 22:00 Potassium Phosphate PHA 04/15/24 In Process 13:00 Date of Service: Apr 15, 2024 Billing Provider: PAM PACE MD Common Visit Codes: [id number] INP/OBS CARE(HIGH), [id number] CARE 30-74 MIN, [id number] CARE-EACH +30MIN PAM PACE MD Apr 15, 2024 15:00
[2024-04-15] MEDS ORDERED: MIDAZOLAM HCL 2MG/2ML 2ml VIAL (1mg/ml) IV PRN (15:30)
--- NOTE | 2024-04-15 18:12 | BSKYNEURO ---
[place] Neuro Note # Demographics Consult Type: General Neurology Patient Location: Inpatient First Name: GABRIEL Last Name: SYD Date of : 1990 Age: 33 Gender: Male Facility: [facility] Time of Initial Page (): 04/15/2024, 12:12 Time of Return Call (): 04/15/2024, 12:12 # HPI History: 33 y/o M admitted 04/12 with cardiac arrest due to drug overdose with meth and fentanyl. Down times estimated to be 15 min in the field. Upon arrival to ED patient lost pulse again and CPR resumed. Intubated for respiratory failure. Has been off sedation for 48hrs. Noted to have twitching movements today. # Exam Time of Exam (): 04/15/2024, 17:52 Mental Status: intuabated no response to voice no spontaneous eye opening Motor: no movement # Data Head CT: diffuse cerebral edema # Assessment Impression: anoxic brain injury poor prognosis # Plan Imaging: (urgency: routine): - MRI Brain without contrast Diagnostic Test: - EEG Other: - If patient has any neurological deterioration please call me back immediately Additional Recommendations: hold all sedation # Logistics Attestation of consult completion: The patient is located at: [facility]. Facility staff participated in the visit. I performed this telemedicine visit from my offsite office utilizing interactive 2 way audio and visual telecommunication technology. Total time spent in telemedicine encounter: I spent 30 minutes reviewing clinical data and/or imaging, obtaining history, examining the patient, communicating with the onsite care team, and in preparation of this report. # Demographics First Name: GABRIEL Last Name: SYD Facility: [facility] Electronically signed at 04/15/2024 18:11 () by DO Lizzette Juan ELIZABETH A DO Apr 15, 2024 18:12
[2024-04-15] MEDS: Jevity 1.2 Cal/Fiber 1 Liter GT SCH (18:43)
[2024-04-15] MEDS: ACETAMINOPHEN 650 mg PER 20.3 mL UD GT PRN (18:43)
--- NOTE | 2024-04-15 20:41 | BSKYNEURO ---
[place] Neuro Note # Demographics Consult Type: General Neurology Patient Location: Inpatient First Name: beverly Last Name: yasmani Date of : 1990 Age: 33 Gender: Male Facility: [facility] Time of Initial Page (Bond Time): 04/15/2024, 19:37 Time of Return Call (Bond Time): 04/15/2024, 19:37 # HPI History: Patient is post cardiac arrest sec to OD. He is not waking up and had CT head showing cerebral edema. He is off sedation for 2 days and he is still not responsive and his pupils are fixed. # Exam Mental Status: - comatose Motor: - no upper extremity weakness - no lower extremity weakness # Assessment Impression: - Other Patient is not responsive and his head CT showed cerebral edema. Need MRI brain wo contrast and EEG to help with prognostication. # Plan Labs: - comprehensive metabolic panel - CBC Imaging: (urgency: routine): - MRI Brain without contrast Diagnostic Test: - EEG Other: - If patient has any neurological deterioration please call me back immediately # Logistics Attestation of consult completion: The patient is located at: [facility]. Facility staff participated in the visit. I performed this telemedicine visit from my offsite office utilizing interactive 2 way audio and visual telecommunication technology. Total time spent in telemedicine encounter: I spent 15 minutes reviewing clinical data and/or imaging, obtaining history, examining the patient, communicating with the onsite care team, and in preparation of this report. # Demographics First Name: beverly Last Name: yasmani Facility: [facility] Yes GA DIALLO MD Apr 15, 2024 20:41
--- NOTE | 2024-04-15 20:56 | DVHPN2 ---
Progress Note - Dictate Date Seen: Apr 15, 2024 Medical Necessity Reason Pt with a Central, PICC or Fol: Yes The following are medically ne: Hercules Catheter Reason for hercules catheter: Strict I&O Subjective Patient seen and examined at bedside. Intubated on mechanical ventilator. Overnight events reviewed. vital signs Vital Sign Date Time Temp Pulse Resp B/P (MAP) Pulse Ox O2 Delivery O2 Flow Rate FiO2 04/15/24 20:55 123 149/102 04/15/24 20:18 28 99 30 04/15/24 20:00 100.4 04/15/24 18:00 Mechanical Ventilator+ Total Intake and Output 04/14/24 04/14/24 04/15/24 15:00 23:00 07:00 Intake Total 115.00 ml 100 ml 130 ml Output Total 1300 ml 450 ml Balance 115.00 ml -1200 ml -320 ml medications Current Medications Medications Dose Ordered Sig/Moni Route Start Time Stop Time Status Last Admin Dose Admin Diagnostic Test (Pha) 1 strip Q6HR 04/12/24 12:00 04/15/24 18:09 1 STRIP Insulin Human Regular Q6HR SC 04/12/24 12:00 04/15/24 18:32 2 UNITS Dextrose 50 ml UD PRN IV 04/12/24 11:30 Diagnostic Test (Pha) 1 strip Q6HR 04/12/24 12:00 UNV Insulin Human Regular Q6HR SC 04/12/24 12:00 UNV Dextrose 50 ml UD PRN IV 04/12/24 11:30 UNV Piperacillin Sod/ Tazobactam Sod 100 ml @ 25 mls/hr Q8HR IV 04/12/24 22:00 04/15/24 14:24 25 MLS/HR Enoxaparin Sodium 30 mg DAILY SC 04/13/24 10:00 UNV Enoxaparin Sodium 40 mg DAILY SC 04/13/24 10:00 04/15/24 09:46 40 MG Pantoprazole Sodium 40 mg DAILY IV 04/14/24 10:00 04/15/24 09:45 40 MG Acetaminophen 650 mg Q6HP PRN GT 04/15/24 08:15 04/15/24 18:43 650 MG Furosemide 40 mg DAILY IV 04/15/24 10:00 04/15/24 09:51 40 MG Carvedilol 6.25 mg Q12HR PO 04/15/24 22:00 04/15/24 20:55 6.25 MG Sacubitril/ Valsartan 2 tab BID PO 04/15/24 22:00 Midazolam HCl 2 mg Q2HP PRN IV 04/15/24 15:30 Enteral Nutritional Formula 1,000 ml 50 GT 04/15/24 16:45 04/15/24 18:43 1,000 ML Dexmedetomidine HCl 400 mcg/ Dextrose 100 ml @ 3.52 mls/hr Q24H IV 04/15/24 19:15 objective Gen.: Patient lying in bed in medical ICU. Intubated on mechanical ventilator. Head: Normocephalic, atraumatic. Eyes: PERRLA. Ears: Normal external anatomy. Throat: Endotracheal tube and orogastric tube in place. Neck: Supple, trachea midline. Chest: Transmitted breath sounds bilaterally. Decreased air entry bilaterally. No wheezing. Bibasilar crackles. Cardiovascular: Positive S1, positive S2. Regular rate and rhythm. Abdomen: Positive bowel sounds in all 4 quadrants. Soft, nontender, nondistended. : Hercules in place. Normal external genitalia. Rectal: Deferred. Skin: Warm, dry. Intact. Extremities: 2+ radial pulses bilaterally. No lower extremity edema. Neuro: Off sedation. laboratory and microbiology Laboratory Tests 04/15/24 03:28 Test 04/15/24 03:28 Range/Units Serum Glucose 116 H 74-106 mg/dL Assessment/Plan Impression: Acute hypoxic respiratory failure On mechanical ventilator Drug overdose Status post cardiac arrest Return of spontaneous circulation Metabolic acidosis Lactic acidosis Elevated troponin Acute kidney injury Events: Remains on vent support On assist control with a respiratory rate of 28, tidal volume 500, PEEP of 8, FiO2 of 30%. Decrease PEEP to 5. CT head notable for findings of anoxic brain injury, diffuse cerebral edema. ABG reviewed, notable for alkalemia. Off pressors Off sedation. Poor prognosis due to anoxic brain injury. Continue empiric antibiotics Neurogenic breathing pattern. JEISON, increased creatinine. Monitor renal function. Monitor electrolytes. Supplement as necessary. Continue IV fluids w/ NS at 150 ml/hr. Monitor lactic acid. Labs and imaging reviewed. Rest of plan as noted below. Plan: s/p intubation on mechanical ventilator Urine toxicology was positive for fentanyl and amphetamines. CT head was negative. CXR image and report reviewed. Devices in place. Bilateral airspace opacities. ABG reviewed. Acidemia due to metabolic acidosis. Repeat ABG in the PM compensated. vent settings; changed to assist control with a respiratory rate of 28, tidal volume 500, PEEP of 5, FiO2 of 30%. Titrate FIO2 to keep O2 saturation above 92%. VAP bundle Daily ABG and CXR while intubated. Off sedation Pressors as necessary for hemodynamic support. - currently off Titrate to keep MAP above 65 mmHg/SBP above 90 mmHg. Empiric antibiotics. F/u cultures. Monitor renal function due to Acute kidney injury. Monitor electrolytes. Supplement as necessary. Monitor ins and outs DVT prophylaxis. Poor prognosis due to anoxic brain injury. Condition: Critical Prognosis: Poor given multiple comorbidities. Rest of plan per hospitalist and other consultants. A total of 35 minutes of critical care time was spent reviewing the patient record, examining the patient, making a diagnostic and therapeutic plan, discussing this plan with the medical personnel, following up on diagnostic studies and following the patient for clinical stability excluding any and all procedures. At least 50% of this time was spent in direct, [id number] contact. Thank you Dr. Vazquez for allowing me to participate in this patient's care. Further recommendations will depend on patient's clinical course. Please do not hesitate to contact me if you have any questions or concerns. This medical document was created using an electronic medical record system with [employer] dictation system. Although this document has been carefully reviewed, there may still be some phonetic and typographical errors. These areas are purely typographical due to imperfections of the software programs, and do not reflect any compromise in the patient's medical care. Dietary Evaluation Review Comments: 1) If GI is accessible consider Jevity 1.2 @ 50 ml/hr x 24 hrs goal rate as tolerated 2) If pt remains NPO >7 days consider TPN to meet a least 75% of estimated needs 3) Advance pt diet when medically feasible to a Cardiac diet 4) Continue current plan of care Expected Outcomes/Goals: 1) Pt to receive nutrition support within 7 days of NPO status 2) Pt diet to advance 3) F/.U in 2-3 days Plan discussed with: Other (SETH Johnson) Critical Care Time(min): 35 MARISEL AGUILA MD Apr 15, 2024 20:56
[2024-04-16] VITALS (86 sets, daily range): BP systolic 104–152; BP diastolic 65–108; PULSE 108–123; RESP 16–33; TEMP 99–100.2; O2SAT 91–100
[2024-04-16 03:53] LABS: Basophils # (auto) 0.1 10 ^3/uL (0-0.2); Basophils % (auto) 0.4 % (0.0-2.0); Eosinophils # (auto) 0 10 ^3/uL (0-0.8); Eosinophils % (auto) 0.1 % (0.0-7.0); Hematocrit 43.4 % (41.0-53.0); Hemoglobin 14.7 g/dL (13.5-17.5); Lymphocytes # (auto) 1.5 10 ^3/uL (0.4-5.4); Lymphocytes % (auto) 10.3 % (10.0-50.0); Mean Corpuscular Hemoglobin 30.4 pg (28.0-32.0); Mean Corpuscular Hgb Conc. 33.8 g/dL (32.0-36.0); Monocytes # (auto) 1.2 10 ^3/uL (0-1.3); Monocytes % (auto) 8.2 % (0.0-12.0); Neutrophils # (auto) 12.1 10 ^3/uL (1.6-8.6); Nucleated Red Blood Cells % 0.1 %; Platelet Count (auto) 451 10^3/uL (140-450); Red Blood Cells 4.83 10^6/uL (4.5-5.90); Red Cell Distribution Width 14.2 % (11.8-14.3); White Blood Cell 14.9 10^3/uL (4.4-10.8)
[2024-04-16 04:03] LABS: Anion Gap 15 (5-15); Carbon Dioxide 17 mmol/L (20-31); Chloride 112 mmol/L (98-107); Sodium 144 mmol/L (136-145)
[2024-04-16 04:04] LABS: Calcium 9.4 mg/dL (8.7-10.4)
[2024-04-16 04:09] LABS: BUN/Creatinine Ratio 39.2 (10.0-20.0); Blood Urea Nitrogen 40 mg/dL (9-23); Glucose 159 mg/dL (74-106)
[2024-04-16 06:36] LABS: Base Excess -0.7 mmol/L (-2.0-3.0)
--- NOTE | 2024-04-16 09:24 | DVH ---
CHEST RADIOGRAPH Indication: INTUBATED Technique: Single frontal view of the chest was obtained Comparison: XY CHEST PORTABLE on DOS: 04/15/24, XY CHEST PORTABLE on DOS: 04/14/24, XY CHEST XRAY 1 V IEW on DOS: 04/14/24, XY CHEST PORTABLE on DOS: 04/13/24, XY CHEST XRAY 1 VIEW on DOS: 04/12/24, XY C HEST PORTABLE on DOS: 04/15/24 FINDINGS: Lines and Tubes: Endotracheal tube and enteric catheter in satisfactory position. Lungs: Patchy bilateral airspace disease. Pleura: No effusion. No pneumothorax. Cardiomediastinal contours: Unremarkable Bones: Unremarkable IMPRESSION: Lines and tubes in satisfactory position. No significant interval change.
[2024-04-16 09:39] LABS: Base Excess -1.1 mmol/L (-2.0-3.0)
--- NOTE | 2024-04-16 16:42 | DVHPN2 ---
Assessment/Plan Assessment/Plan ICU progress note Subjective 33 yo M s/p cardiac arrest 2/2 possibly fentanyl, intubated and on mechanical ventilation. Down time approximately 12 minutes. Pinpoint pupil, no reflex. Patient is seen by me today during rounds Over breathing vent, respiratory acidosis, we will start sedation again, status post EEG. Patient can not get to MRI now, we will attempt MRI once more stable. Softer blood pressure, we will DC Entresto and stopped Lasix as patient is currently euvolemic reassess in the morning. Had family discussion yesterday with Jean Saucedo and the rest of his family. Informed family regarding current critical condition, poor prognosis from prior CT head. Family agrees for no c hest compression, however remain full code for now. Chambers will continue discussion regarding tracheostomy versus palliative extubation in the future, and goals of care. Objective Physical exam Sedated, intubated mechanically ventilated Synchronized with ventilator No gag, cough, corneal PERRLA, pinpoint Not responding to pain Clear breath sounds bilaterally S1-S2 tachycardia Abdomen soft nontender No lower extremity edema Lab Troponin elevation Normocytic anemia Creatinine elevation, stable Elevated lactic acid, stable leukocytosis Mildly elevated anion gap EKG LVH by voltage CXR ETT 7cm from placido, clear lungs Imaging CTH clear Repeat CT brain edema Assessment and plan Status post cardiac arrest Acute hypoxic respiratory failure Requiring mechanical ventilation and intubation Cardiac stunning versus dilated cardiomyopathy Heart failure with reduced ejection fraction Troponin elevation from cardiac arrest Lactic acidosis High anion gap metabolic acidosis from above JEISON/ATN Respiratory acidosis Continue with ICU admission [employer] Consultant consult appreciated Continue with mechanical ventilation Compensated, in sync with vents We will hold IV fluids for now Continue with Zosyn MRSA swab Daily SBT Trend creatinine, lactate Strict I&O Daily weights VAP bundle advance ETT 2cm echo reviewed, severe DCM dc lasix as pt is euvolemic pressor on standby midlin placement, remove fem TLC will arrange family conference Per tele neuro for EEG and MRI, EEG done we will restart sedation Hold GDM T for low blood pressure Pressors if needed Lines ChambersChidi tsai Maintain potassium of 4, phosphate of 3 and magnesium of 2 Diet NPO GI prophylaxis IV PPI DVT prophylaxis lovenox prognosis poor condition critical 92 minutes critical care time spent on this patient including evaluation, chart review, formulating plan and communication with team, excluding any procedures or point of care imaging More than 30 minutes spent in advanced care planning, including discussing code status, medical decision maker, goals of care and disposition planning. Plan discussed with: Patient My Orders Orders - PAM PACE MD Procedure Category Date Status Time Nutritional PHA 04/15/24 In Process Supplements (Jevity 16:45 D5w 5% (Dextrose 5%) PHA 04/15/24 In Process W/Dexmedetomidine 19:15 Communication Order ORDERS 04/15/24 Transmitted 20:20 Brain Head Wo Contrast MRI 04/16/24 Logged 07:00 Eeg Awake/Sleep/Act EEG 04/15/24 Transmitted 20:47 Modified Resuscitive CODE 04/15/24 Transmitted Measures Communication Order ORDERS 04/16/24 Transmitted 01:43 Communication Order ORDERS 04/16/24 Transmitted 08:57 Versed Drip Target -3 PHA 04/16/24 Verified Rass 16:45 Potassium Phosphate PHA 04/16/24 Verified 16:45 Date of Service: Apr 16, 2024 Billing Provider: PAM PACE MD Common Visit Codes: [id number] INP/OBS CARE(HIGH), [id number] CARE 30-74 MIN Secondary Visit Codes: [id number] CARE PLAN 30 MINUTES PAM PACE MD Apr 16, 2024 16:42
[2024-04-16] MEDS: MIDAZOLAM DRIP 50 mg/50mL 50 ML IV SCH ×2 (16:45→17:14)
[2024-04-16] MEDS: POTASSIUM PHOSPHATE 44 MEQ in D5W 5% 250 ML IV ONE (17:53)
--- NOTE | 2024-04-16 20:10 | DVHPN2 ---
Progress Note - Dictate Date Seen: Apr 16, 2024 Medical Necessity Reason Pt with a Central, PICC or Fol: Yes The following are medically ne: Hercules Catheter Reason for hercules catheter: Strict I&O Subjective Patient seen and examined at bedside. Sedated, intubated on mechanical ventilator. Overnight events reviewed. vital signs Vital Sign Date Time Temp Pulse Resp B/P (MAP) Pulse Ox O2 Delivery O2 Flow Rate FiO2 04/16/24 18:30 99.3 113 16 109/73 (85) 98 210.7 04/16/24 18:08 Mechanical Ventilator+ 30 30 Total Intake and Output 04/15/24 04/15/24 04/16/24 15:00 23:00 07:00 Intake Total 132.5 ml 353.06 ml 385 ml Output Total 1800 ml 550 ml Balance 132.5 ml -1446.94 ml -165 ml medications Current Medications Medications Dose Ordered Sig/Moni Route Start Time Stop Time Status Last Admin Dose Admin Diagnostic Test (Pha) 1 strip Q6HR 04/12/24 12:00 04/16/24 17:10 1 STRIP Insulin Human Regular Q6HR SC 04/12/24 12:00 04/16/24 17:21 3 UNITS Dextrose 50 ml UD PRN IV 04/12/24 11:30 Diagnostic Test (Pha) 1 strip Q6HR 04/12/24 12:00 UNV Insulin Human Regular Q6HR SC 04/12/24 12:00 UNV Dextrose 50 ml UD PRN IV 04/12/24 11:30 UNV Piperacillin Sod/ Tazobactam Sod 100 ml @ 25 mls/hr Q8HR IV 04/12/24 22:00 04/16/24 13:57 25 MLS/HR Enoxaparin Sodium 30 mg DAILY SC 04/13/24 10:00 UNV Enoxaparin Sodium 40 mg DAILY SC 04/13/24 10:00 04/16/24 08:32 40 MG Pantoprazole Sodium 40 mg DAILY IV 04/14/24 10:00 04/16/24 08:31 40 MG Acetaminophen 650 mg Q6HP PRN GT 04/15/24 08:15 04/16/24 05:58 650 MG Carvedilol 6.25 mg Q12HR PO 04/15/24 22:00 04/16/24 08:32 6.25 MG Enteral Nutritional Formula 1,000 ml 50 GT 04/15/24 16:45 04/15/24 18:43 1,000 ML Dexmedetomidine HCl 400 mcg/ Dextrose 100 ml @ 3.52 mls/hr Q24H IV 04/15/24 19:15 04/16/24 14:50 3.52 MLS/HR Midazolam HCl 50 ml @ 1 mls/hr Q24H IV 04/16/24 18:45 04/16/24 16:45 1 MLS/HR objective Gen.: Patient lying in bed in medical ICU. Sedated, intubated on mechanical ventilator.. Head: Normocephalic, atraumatic. Eyes: PERRLA. Ears: Normal external anatomy. Throat: Endotracheal tube and orogastric tube in place. Neck: Supple, trachea midline. Chest: Transmitted breath sounds bilaterally. Decreased air entry bilaterally. No wheezing. Bibasilar crackles. Cardiovascular: Positive S1, positive S2. Regular rate and rhythm. Abdomen: Positive bowel sounds in all 4 quadrants. Soft, nontender, nondistended. : Hercules in place. Normal external genitalia. Rectal: Deferred. Skin: Warm, dry. Intact. Extremities: 2+ radial pulses bilaterally. No lower extremity edema. Neuro: Sedated. laboratory and microbiology Laboratory Tests 04/16/24 03:18 Test 04/16/24 03:18 Range/Units Serum Glucose 159 H 74-106 mg/dL Assessment/Plan Impression: Acute hypoxic respiratory failure On mechanical ventilator Drug overdose Status post cardiac arrest Return of spontaneous circulation Metabolic acidosis Lactic acidosis Elevated troponin Acute kidney injury Events: Remains on vent support Vent settings changed to assist control with respiratory rate of 20, tidal volume 500, PEEP of 5, FiO2 of 30%. CT head notable for findings of anoxic brain injury, diffuse cerebral edema. Awaiting review of EEG. On sedation with Versed 5 mg. ABG reviewed, notable for alkalemia. Off pressors Poor prognosis due to anoxic brain injury. Continue empiric antibiotics Discontinue Entresto On Coreg. Neurogenic breathing pattern. JEISON, increased creatinine. Off Lasix Monitor renal function. Monitor electrolytes. Supplement as necessary. K, phos supplementation Check mag level. Continue IV fluids w/ NS at 150 ml/hr. Monitor lactic acid. Tube feeds for nutritional support Labs and imaging reviewed. Rest of plan as noted below. Plan: s/p intubation on mechanical ventilator Urine toxicology was positive for fentanyl and amphetamines. CT head was negative. CXR image and report reviewed. Devices in place. Bilateral airspace opacities. ABG reviewed. Acidemia due to metabolic acidosis. Repeat ABG in the PM compensated. vent settings; assist control with a respiratory rate of 20, tidal volume 500, PEEP of 5, FiO2 of 30%. Titrate FIO2 to keep O2 saturation above 92%. VAP bundle Daily ABG and CXR while intubated. On sedation w/ Versed. Pressors as necessary for hemodynamic support. - currently off Titrate to keep MAP above 65 mmHg/SBP above 90 mmHg. Empiric antibiotics. F/u cultures. Monitor renal function due to Acute kidney injury. Monitor electrolytes. Supplement as necessary. Monitor ins and outs DVT prophylaxis. Poor prognosis due to anoxic brain injury. Condition: Critical Prognosis: Poor given multiple comorbidities. Rest of plan per hospitalist and other consultants. A total of 35 minutes of critical care time was spent reviewing the patient record, examining the patient, making a diagnostic and therapeutic plan, discussing this plan with the medical personnel, following up on diagnostic studies and following the patient for clinical stability excluding any and all procedures. At least 50% of this time was spent in direct, [id number] contact. Thank you Dr. Vazquez for allowing me to participate in this patient's care. Further recommendations will depend on patient's clinical course. Please do not hesitate to contact me if you have any questions or concerns. This medical document was created using an electronic medical record system with [employer] dictation system. Although this document has been carefully reviewed, there may still be some phonetic and typographical errors. These areas are purely typographical due to imperfections of the software programs, and do not reflect any compromise in the patient's medical care. Dietary Evaluation Review Comments: 1) If GI is accessible consider Jevity 1.2 @ 50 ml/hr x 24 hrs goal rate as tolerated 2) If pt remains NPO >7 days consider TPN to meet a least 75% of estimated needs 3) Advance pt diet when medically feasible to a Cardiac diet 4) Continue current plan of care Expected Outcomes/Goals: 1) Pt to receive nutrition support within 7 days of NPO status 2) Pt diet to advance 3) F/.U in 2-3 days Plan discussed with: Other (SETH Johnson) Critical Care Time(min): 35 AGUILA,MARISEL M MD Apr 16, 2024 20:10
[2024-04-17] VITALS (90 sets, daily range): BP systolic 82–145; BP diastolic 45–84; PULSE 103–120; RESP 18–32; TEMP 98.7–100; O2SAT 94–100
[2024-04-17 04:18] LABS: Basophils # (auto) 0 10 ^3/uL (0-0.2); Basophils % (auto) 0.1 % (0.0-2.0); Eosinophils # (auto) 0 10 ^3/uL (0-0.8); Eosinophils % (auto) 0.1 % (0.0-7.0); Hematocrit 43.1 % (41.0-53.0); Hemoglobin 14.7 g/dL (13.5-17.5); Lymphocytes # (auto) 1.7 10 ^3/uL (0.4-5.4); Lymphocytes % (auto) 9.3 % (10.0-50.0); Mean Corpuscular Hemoglobin 30.7 pg (28.0-32.0); Mean Corpuscular Volume 90.3 fL (80.0-100.0); Monocytes # (auto) 1.8 10 ^3/uL (0-1.3); Monocytes % (auto) 9.8 % (0.0-12.0); Neutrophils # (auto) 14.4 10 ^3/uL (1.6-8.6); Neutrophils % (auto) 80.7 % (37.0-80.0); Nucleated Red Blood Cells % 0.1 %; Platelet Count (auto) 473 10^3/uL (140-450); Red Blood Cells 4.77 10^6/uL (4.5-5.90); Red Cell Distribution Width 14.4 % (11.8-14.3); White Blood Cell 17.9 10^3/uL (4.4-10.8)
[2024-04-17 04:23] LABS: Anion Gap 12 (5-15); Carbon Dioxide 21 mmol/L (20-31); Chloride 113 mmol/L (98-107); Sodium 146 mmol/L (136-145)
[2024-04-17 04:24] LABS: Calcium 9.1 mg/dL (8.7-10.4)
[2024-04-17 04:28] LABS: Glucose 174 mg/dL (74-106)
[2024-04-17 04:29] LABS: BUN/Creatinine Ratio 43.5 (10.0-20.0); Blood Urea Nitrogen 47 mg/dL (9-23); Magnesium 2.1 mg/dL (1.6-2.6)
[2024-04-17 04:31] LABS: Phosphorus 3.7 mg/dL (2.4-5.1)
[2024-04-17 08:20] LABS: Base Excess -0.9 mmol/L (-2.0-3.0)
[2024-04-17] MEDS: fentaNYL Drip 2500mCg/250mlNS 250 ML IV SCH (09:00)
[2024-04-17] MEDS: SODIUM CHLORIDE 0.9% 1,000 ML IV ONE (09:00)
[2024-04-17] MEDS: fentaNYL Drip 2500mCg/250mlNS 250 ML IV ONE (09:03)
[2024-04-17] MEDS: NOREPINEPHRINE 8 MG/250ML KIT 250 ML IV ONE (09:05)
[2024-04-17] MEDS: NOREPINEPHRINE 8 MG/250ML KIT 250 ML IV SCH (11:57)
--- NOTE | 2024-04-17 13:40 | DVHPN2 ---
Assessment/Plan Assessment/Plan ICU progress note Subjective 33 yo M s/p cardiac arrest 2/2 possibly fentanyl, intubated and on mechanical ventilation. Down time approximately 12 minutes. Pinpoint pupil, no reflex. Patient is seen by me today during rounds Worsening respiratory alkalosis, we will restart sedation, EEG done, MRI pending morphine synchrony at this time and better blood gas. After starting sedation, patient requires pressor supports, started on Levophed. We will place central line Point of care ultrasound done today and interpreted by me Cardiac: No pericardial effusion, grossly normal systolic function, grossly normal valves, grossly normal heart chambers, IVC >2cm with less than 50% excursion on inspiration Objective Physical exam Sedated, intubated mechanically ventilated Synchronized with ventilator No gag, cough, corneal PERRLA, pinpoint Not responding to pain Clear breath sounds bilaterally S1-S2 tachycardia Abdomen soft nontender No lower extremity edema Lab Troponin elevation Normocytic anemia Creatinine elevation, stable Elevated lactic acid, stable leukocytosis Mildly elevated anion gap Worsening respiratory alkalosis EKG LVH by voltage CXR ETT 7cm from placido, clear lungs Imaging CTH clear Repeat CT brain edema Assessment and plan Status post cardiac arrest Acute hypoxic respiratory failure Requiring mechanical ventilation and intubation Cardiac stunning versus dilated cardiomyopathy Heart failure with reduced ejection fraction Troponin elevation from cardiac arrest Lactic acidosis High anion gap metabolic acidosis from above JEISON/ATN Respiratory alkalosis Continue with ICU admission [employer] Lead consult appreciated Continue with mechanical ventilation Compensated, in sync with vents We will hold IV fluids for now Continue with Zosyn MRSA swab Daily SBT Trend creatinine, lactate Strict I&O Daily weights VAP bundle advance ETT 2cm echo reviewed, severe DCM dc lasix as pt is euvolemic pressor on standby midlin placement, remove fem TLC will arrange family conference Per tele neuro for EEG and MRI, EEG done we will restart sedation Hold GDM T for low blood pressure Start Levophed to maintain map above 75 Restart sedation for vent synchrony Sedation with fentanyl and Versed, and propofol Insert triple-lumen catheter Lines Chambers, Midline Maintain potassium of 4, phosphate of 3 and magnesium of 2 Diet NPO GI prophylaxis IV PPI DVT prophylaxis lovenox prognosis poor condition critical 92 minutes critical care time spent on this patient including evaluation, chart review, formulating plan and communication with team, excluding any procedures or point of care imaging More than 30 minutes spent in advanced care planning, including discussing code status, medical decision maker, goals of care and disposition planning. Plan discussed with: Other My Orders Orders - PAM PACE MD Procedure Category Date Status Time Midazolam Drip 50 PHA 04/16/24 In Process Mg/50ml (Versed Drip 5 18:45 Fentanyl Drip PHA 04/17/24 In Process 2500mcg/250mlns 09:00 Abg W/ Co-Ox RT 04/17/24 Logged 15:00 Norepinephrine 8 PHA 04/17/24 In Process Mg/250ml Kit 11:45 Date of Service: Apr 17, 2024 Billing Provider: PAM PACE MD Common Visit Codes: [id number] INP/OBS CARE(HIGH), [id number] CARE 30-74 MIN, [id number] CARE-EACH +30MIN, PROCEDURE ONLY (Cardiac point of care ultrasound [id number]) PAM PACE MD Apr 17, 2024 13:40
[2024-04-17] MEDS ORDERED: VANCOMYCIN PER PHARMACY 0 MG IV SCH (13:45)
[2024-04-17] MEDS: VANCOMYCIN 1.5GM/300ML 300 ML IV ONE (14:00)
[2024-04-17] MEDS ORDERED: VANCOMYCIN 1.5 GM in D5W 5% 250 ML IV ONE (14:00)
--- NOTE | 2024-04-17 14:48 | DVHNC2 ---
Central Line Recorder of insertion practice: Glass Artist Occupation of roll wrapper: Attending Physician Indication: Hypotension, CVP monitoring Room prepared for procedure: Yes Glass Artist performed hand hygien: Yes Maximal sterile barrier precau: Mask/Eye shield, Sterile gown, Cap, Sterlie gloves, Large sterlie drape Skin Preparation: Chlorhexidine gluconate Skin preparation completely dr: Yes Insertion site: Right, Internal jugular Central line catheter type: [id number] dialysis Number of lumens: 3 Central line exchanged over a: Yes Antiseptic ointment applied to: Yes Post Assessment: Chest X-Ray, Proper placement (confirmed placement with bubble), No Pneumothorax Informed consent obtained: Yes Risks/benefits/alt described: Yes Date of Service: Apr 17, 2024 Billing Provider: PAM PACE MD Cardiology Common Codes: PROCEDURE ONLY (27174 R IJ TLC) PAM PACE MD Apr 17, 2024 14:48
--- NOTE | 2024-04-17 14:58 | DVH ---
CHEST RADIOGRAPH Indication: TLC PLACEMENT Technique: Single frontal view of the chest was obtained COMPARISON: XY CHEST PORTABLE on DOS: 04/16/24, XY CHEST PORTABLE on DOS: 04/15/24, XY CHEST PORTABLE on DOS: 04/14/24 FINDINGS: Lines and Tubes: Endotracheal tube, enteric catheter and right central venous catheter in satisfactor y position. Lungs: Clear Pleura: No effusion. No pneumothorax. Cardiomediastinal contours: Unremarkable Bones: Unremarkable IMPRESSION: Lines and tubes in satisfactory position. No significant interval change.
--- NOTE | 2024-04-17 15:21 | DVHNC2 ---
Other Procedure Procedure Right radial arterial line Indication invasive BP monitoring Anesthetic purposeful sedation Prep chlorhexidine skin prep Success yes Informed consent obtained: Yes Risks, benefits, and alternati: Yes Date of Service: Apr 17, 2024 Billing Provider: PAM PACE MD Cardiology Common Codes: PROCEDURE ONLY PAM PACE MD Apr 17, 2024 15:20
--- NOTE | 2024-04-17 19:17 | DVHPN2 ---
Progress Note - Dictate Date Seen: Apr 17, 2024 Medical Necessity Reason Pt with a Central, PICC or Fol: Yes The following are medically ne: Hercules Catheter Reason for hercules catheter: Strict I&O Subjective Patient seen and examined at bedside. Sedated, intubated on mechanical ventilator. Overnight events reviewed. vital signs Vital Sign Date Time Temp Pulse Resp B/P (MAP) Pulse Ox O2 Delivery O2 Flow Rate FiO2 04/17/24 18:30 105 125/74 (91) 97 120/69 (86) 04/17/24 18:08 22 30 04/17/24 18:00 Mechanical Ventilator+ 04/17/24 10:15 98.7 98.7 Total Intake and Output 04/16/24 04/16/24 04/17/24 15:00 23:00 07:00 Intake Total 128.52 ml 647.04 ml 865 ml Output Total 1350 ml 625 ml Balance 128.52 ml -702.96 ml 240 ml medications Current Medications Medications Dose Ordered Sig/Moni Route Start Time Stop Time Status Last Admin Dose Admin Diagnostic Test (Pha) 1 strip Q6HR 04/12/24 12:00 04/17/24 17:40 1 STRIP Insulin Human Regular Q6HR SC 04/12/24 12:00 04/17/24 17:40 2 UNITS Dextrose 50 ml UD PRN IV 04/12/24 11:30 Diagnostic Test (Pha) 1 strip Q6HR 04/12/24 12:00 UNV Insulin Human Regular Q6HR SC 04/12/24 12:00 UNV Dextrose 50 ml UD PRN IV 04/12/24 11:30 UNV Piperacillin Sod/ Tazobactam Sod 100 ml @ 25 mls/hr Q8HR IV 04/12/24 22:00 04/17/24 14:00 25 MLS/HR Enoxaparin Sodium 30 mg DAILY SC 04/13/24 10:00 UNV Enoxaparin Sodium 40 mg DAILY SC 04/13/24 10:00 04/17/24 09:28 40 MG Pantoprazole Sodium 40 mg DAILY IV 04/14/24 10:00 04/17/24 09:27 40 MG Acetaminophen 650 mg Q6HP PRN GT 04/15/24 08:15 04/16/24 05:58 650 MG Carvedilol 6.25 mg Q12HR PO 04/15/24 22:00 04/17/24 10:20 6.25 MG Enteral Nutritional Formula 1,000 ml 50 GT 04/15/24 16:45 04/15/24 18:43 1,000 ML Dexmedetomidine HCl 400 mcg/ Dextrose 100 ml @ 3.52 mls/hr Q24H IV 04/15/24 19:15 04/16/24 14:50 3.52 MLS/HR Midazolam HCl 50 ml @ 1 mls/hr Q24H IV 04/16/24 18:45 04/17/24 17:18 12 MLS/HR Fentanyl Citrate 250 ml @ 2.5 mls/hr Q24H IV 04/17/24 09:00 04/17/24 09:00 2.5 MLS/HR Norepinephrine Bitartrate 250 ml @ 3.75 mls/hr Q24H IV 04/17/24 11:45 04/17/24 11:57 3.75 MLS/HR Vancomycin HCl 0 ml @ 0 mls/hr UD IV 04/17/24 13:45 Vancomycin HCl 200 ml @ 200 mls/hr Q12H IV 04/18/24 05:00 objective Gen.: Patient lying in bed in medical ICU. Sedated, intubated on mechanical ventilator.. Head: Normocephalic, atraumatic. Eyes: PERRLA. Ears: Normal external anatomy. Throat: Endotracheal tube and orogastric tube in place. Neck: Supple, trachea midline. Chest: Transmitted breath sounds bilaterally. Decreased air entry bilaterally. No wheezing. Bibasilar crackles. Cardiovascular: Positive S1, positive S2. Regular rate and rhythm. Abdomen: Positive bowel sounds in all 4 quadrants. Soft, nontender, nondistended. : Hercules in place. Normal external genitalia. Rectal: Deferred. Skin: Warm, dry. Intact. Extremities: 2+ radial pulses bilaterally. No lower extremity edema. Neuro: Sedated. laboratory and microbiology Laboratory Tests 04/17/24 03:07 Test 04/17/24 03:07 Range/Units Serum Glucose 174 H 74-106 mg/dL Assessment/Plan Impression: Acute hypoxic respiratory failure On mechanical ventilator Drug overdose Status post cardiac arrest Return of spontaneous circulation Metabolic acidosis Lactic acidosis Elevated troponin Acute kidney injury Events: Remains on vent support Vent settings; assist control with respiratory rate of 20, tidal volume 500, PEEP of 5, FiO2 of 30%. S/p right radial arterial line placement. S/p central line placement. On pressors for hemodynamic support Levophed 10 mcg/min Titrate to keep mean arterial pressure greater than [address] head notable for findings of anoxic brain injury, diffuse cerebral edema. Awaiting review of EEG. On sedation with Versed and Fentanyl. ABG reviewed, notable for alkalemia. Poor prognosis due to anoxic brain injury. Continue empiric antibiotics Continue Coreg. Neurogenic breathing pattern. EJISON, increased creatinine. Off Lasix Monitor renal function. Monitor electrolytes. Supplement as necessary. Continue IV fluids w/ NS at 150 ml/hr. Monitor lactic acid. Tube feeds for nutritional support Labs and imaging reviewed. Rest of plan as noted below. Plan: s/p intubation on mechanical ventilator Urine toxicology was positive for fentanyl and amphetamines. CT head was negative. CXR image and report reviewed. Devices in place. Bilateral airspace opacities. ABG reviewed. Acidemia due to metabolic acidosis. Repeat ABG in the PM compensated. Vent settings; assist control with a respiratory rate of 20, tidal volume 500, PEEP of 5, FiO2 of 30%. Titrate FIO2 to keep O2 saturation above 92%. VAP bundle Daily ABG and CXR while intubated. Sedated for vent synchrony. Pressors for hemodynamic support. Titrate to keep MAP above 65 mmHg/SBP above 90 mmHg. Empiric antibiotics. F/u cultures. Monitor renal function due to Acute kidney injury. Monitor electrolytes. Supplement as necessary. Monitor ins and outs DVT prophylaxis. Poor prognosis due to anoxic brain injury. Condition: Critical Prognosis: Poor given multiple comorbidities. Rest of plan per hospitalist and other consultants. A total of 35 minutes of critical care time was spent reviewing the patient record, examining the patient, making a diagnostic and therapeutic plan, discussing this plan with the medical personnel, following up on diagnostic studies and following the patient for clinical stability excluding any and all procedures. At least 50% of this time was spent in direct, [id number] contact. Thank you Dr. Vazquez for allowing me to participate in this patient's care. Further recommendations will depend on patient's clinical course. Please do not hesitate to contact me if you have any questions or concerns. This medical document was created using an electronic medical record system with [employer] system. Although this document has been carefully reviewed, there may still be some phonetic and typographical errors. These areas are purely typographical due to imperfections of the software programs, and do not reflect any compromise in the patient's medical care. Dietary Evaluation Review Comments: 1) If GI is accessible consider Jevity 1.2 @ 50 ml/hr x 24 hrs goal rate as tolerated 2) If pt remains NPO >7 days consider TPN to meet a least 75% of estimated needs 3) Advance pt diet when medically feasible to a Cardiac diet 4) Continue current plan of care Expected Outcomes/Goals: 1) Pt to receive nutrition support within 7 days of NPO status 2) Pt diet to advance 3) F/.U in 2-3 days Plan discussed with: Other (SETH Leslie) Critical Care Time(min): 35 MARISEL AGUILA MD Apr 17, 2024 19:17
[2024-04-18] VITALS (103 sets, daily range): BP systolic 81–160; BP diastolic 36–87; PULSE 77–118; RESP 20–28; TEMP 98.2–99.5; O2SAT 90–100
[2024-04-18 03:40] LABS: Eosinophils # (auto) 0.1 10 ^3/uL (0-0.8); Eosinophils % (auto) 0.8 % (0.0-7.0); Hematocrit 38.9 % (41.0-53.0); Hemoglobin 12.6 g/dL (13.5-17.5); Nucleated Red Blood Cells % 0.1 %
[2024-04-18 03:43] LABS: Basophils # (auto) 0 10 ^3/uL (0-0.2); Basophils % (auto) 0.2 % (0.0-2.0); Lymphocytes # (auto) 2.7 10 ^3/uL (0.4-5.4); Lymphocytes % (auto) 16.9 % (10.0-50.0); Mean Corpuscular Hemoglobin 30.1 pg (28.0-32.0); Mean Corpuscular Hgb Conc. 32.4 g/dL (32.0-36.0); Mean Corpuscular Volume 92.9 fL (80.0-100.0); Monocytes # (auto) 2.3 10 ^3/uL (0-1.3); Monocytes % (auto) 14.1 % (0.0-12.0); Platelet Count (auto) 480 10^3/uL (140-450); Red Blood Cells 4.18 10^6/uL (4.5-5.90); Red Cell Distribution Width 15.1 % (11.8-14.3); White Blood Cell 16.2 10^3/uL (4.4-10.8)
[2024-04-18 03:53] LABS: Anion Gap 10 (5-15); Calcium 9.2 mg/dL (8.7-10.4); Carbon Dioxide 21 mmol/L (20-31); Chloride 116 mmol/L (98-107); Potassium 5.1 mmol/L (3.5-5.1); Sodium 147 mmol/L (136-145)
[2024-04-18 03:59] LABS: Blood Urea Nitrogen 39 mg/dL (9-23); Glucose 118 mg/dL (74-106); Magnesium 2.1 mg/dL (1.6-2.6)
[2024-04-18] MEDS: VANCOMYCIN 1GM/250ML KIT 200 ML IV SCH (04:47)
[2024-04-18 07:20] LABS: Base Excess -2.9 mmol/L (-2.0-3.0)
[2024-04-18] MEDS: FREE WATER NG SCH (12:17)
--- NOTE | 2024-04-18 12:26 | DVH ---
MRI BRAIN HEAD WO CONTRAST INDICATION: Cerebral edema EXAM DATE: 04/18/2024 11:06 AM COMPARISON: CT HEAD WITHOUT CONTRAST on DOS: 04/12/24 PROCEDURE: Using a 1.5 Yisel scanner, multisequence multiplanar imaging of the brain was obtained. FINDINGS: Sulcal effacement with indistinct margins of the servin-white matter on T2 sequences. Efface ment of the basal cisterns is noted. There is irregular contour of the bilateral optic nerves with in creased fluid around the optic nerves. The brain otherwise shows normal morphology and signal charact eristics. No abnormal diffusion restriction, or susceptibility hypointensity is present. The ventric les are normal in size. The midline structures are intact. The major intracranial flow voids are pres ent. Bilateral maxillary sinus and mastoid air cell mucosal fluid. The extracranial soft tissues ap pear normal. IMPRESSION: Symmetrical cerebral sulcal effacement with indistinct margins of the servin-white matter on T2 sequenc es and effacement of the basal cisterns could be seen with cerebral edema.
--- NOTE | 2024-04-18 17:27 | DVHPN2 ---
Assessment/Plan Assessment/Plan ICU progress note Subjective 33 yo M s/p cardiac arrest 2/2 possibly fentanyl, intubated and on mechanical ventilation. Down time approximately 12 minutes. Pinpoint pupil, no reflex. Patient is seen by me today during rounds on pressor and sedation. Respiratory alkalosis resolved. Objective Physical exam Sedated, intubated mechanically ventilated Synchronized with ventilator No gag, cough, corneal PERRLA, pinpoint Not responding to pain Clear breath sounds bilaterally S1-S2 tachycardia Abdomen soft nontender No lower extremity edema Lab Troponin elevation Normocytic anemia Creatinine elevation, stable Elevated lactic acid, stable leukocytosis Mildly elevated anion gap Worsening respiratory alkalosis EKG LVH by voltage CXR ETT 7cm from placido, clear lungs Imaging CTH clear Repeat CT brain edema Assessment and plan Status post cardiac arrest Acute hypoxic respiratory failure Requiring mechanical ventilation and intubation Cardiac stunning versus dilated cardiomyopathy Heart failure with reduced ejection fraction Troponin elevation from cardiac arrest Lactic acidosis High anion gap metabolic acidosis from above JEISON/ATN Respiratory alkalosis MRSA bacteremia MRSA PNA Continue with ICU admission Lay Ups Assembler consult appreciated Continue with mechanical ventilation Compensated, in sync with vents We will hold IV fluids for now Continue with Zosyn and vanc MRSA swab Daily SBT Trend creatinine, lactate Strict I&O Daily weights VAP bundle advance ETT 2cm echo reviewed, severe DCM dc lasix as pt is euvolemic pressor on standby midlin placement, remove fem TLC will arrange family conference Per tele neuro for EEG and MRI, EEG done we will restart sedation Hold GDM T for low blood pressure Start Levophed to maintain map above 70 Restart sedation for vent synchrony Sedation with fentanyl and Versed, and propofol Insert triple-lumen catheter Lines Chambers, Midline R IJ TLC R radial a line Maintain potassium of 4, phosphate of 3 and magnesium of 2 Diet NPO GI prophylaxis IV PPI DVT prophylaxis lovenox prognosis poor condition critical 95 minutes critical care time spent on this patient including evaluation, chart review, formulating plan and communication with team, excluding any procedures or point of care imaging Plan discussed with: Other My Orders Orders - PAM PACE MD Procedure Category Date Status Time Vancomycin 1gm/200ml PHA 04/18/24 In Process Premix 05:00 Vancomycin Per KIM 04/19/24 In Process Pharmacy Protoc 05:00 Vancomycin,Trough LAB 04/19/24 Verified 04:00 Free Water PHA 04/18/24 In Process 12:00 Brain Head Wo Contrast MRI 04/18/24 Resulted Basic Metabolic Panel LAB 04/19/24 Verified 04:00 Complete Blood Count LAB 04/19/24 Verified 04:00 Magnesium LAB 04/19/24 Verified 04:00 Phosphorus LAB 04/19/24 Verified 04:00 Abg W/ Co-Ox RT 04/19/24 Verified 04:00 Date of Service: Apr 18, 2024 Billing Provider: PAM PACE MD Common Visit Codes: [id number] INP/OBS CARE(HIGH), [id number] CARE 30-74 MIN, [id number] CARE-EACH +30MIN PAM PACE MD Apr 18, 2024 17:27
--- NOTE | 2024-04-18 22:46 | DVHPN2 ---
Progress Note - Dictate Date Seen: Apr 18, 2024 Medical Necessity Reason Pt with a Central, PICC or Fol: Yes The following are medically ne: Hercules Catheter Reason for hercules catheter: Strict I&O Subjective Patient seen and examined at bedside. Sedated, intubated on mechanical ventilator. Overnight events reviewed. vital signs Vital Sign Date Time Temp Pulse Resp B/P (MAP) Pulse Ox O2 Delivery O2 Flow Rate FiO2 04/18/24 22:05 88 28 117/51 (73) 100 30 04/18/24 22:00 Mechanical Ventilator+ 04/18/24 20:00 98.6 98.6 Total Intake and Output 04/17/24 04/17/24 04/18/24 15:00 23:00 07:00 Intake Total 259.25 ml 900 ml 1352.25 ml Output Total 450 ml 1000 ml Balance 259.25 ml 450 ml 352.25 ml medications Current Medications Medications Dose Ordered Sig/Moni Route Start Time Stop Time Status Last Admin Dose Admin Diagnostic Test (Pha) 1 strip Q6HR 04/12/24 12:00 04/18/24 17:48 1 STRIP Insulin Human Regular Q6HR SC 04/12/24 12:00 04/18/24 12:00 2 UNITS Dextrose 50 ml UD PRN IV 04/12/24 11:30 Diagnostic Test (Pha) 1 strip Q6HR 04/12/24 12:00 UNV Insulin Human Regular Q6HR SC 04/12/24 12:00 UNV Dextrose 50 ml UD PRN IV 04/12/24 11:30 UNV Piperacillin Sod/ Tazobactam Sod 100 ml @ 25 mls/hr Q8HR IV 04/12/24 22:00 04/18/24 21:35 25 MLS/HR Enoxaparin Sodium 30 mg DAILY SC 04/13/24 10:00 UNV Enoxaparin Sodium 40 mg DAILY SC 04/13/24 10:00 04/18/24 09:57 40 MG Pantoprazole Sodium 40 mg DAILY IV 04/14/24 10:00 04/18/24 09:57 40 MG Acetaminophen 650 mg Q6HP PRN GT 04/15/24 08:15 04/16/24 05:58 650 MG Enteral Nutritional Formula 1,000 ml 50 GT 04/15/24 16:45 04/15/24 18:43 1,000 ML Dexmedetomidine HCl 400 mcg/ Dextrose 100 ml @ 3.52 mls/hr Q24H IV 04/15/24 19:15 04/16/24 14:50 3.52 MLS/HR Midazolam HCl 50 ml @ 1 mls/hr Q24H IV 04/16/24 18:45 04/18/24 19:01 10 MLS/HR Fentanyl Citrate 250 ml @ 2.5 mls/hr Q24H IV 04/17/24 09:00 04/18/24 11:53 17.5 MLS/HR Norepinephrine Bitartrate 250 ml @ 3.75 mls/hr Q24H IV 04/17/24 11:45 04/18/24 02:01 11.25 MLS/HR Vancomycin HCl 0 ml @ 0 mls/hr UD IV 04/17/24 13:45 Vancomycin HCl 200 ml @ 200 mls/hr Q12H IV 04/18/24 05:00 04/18/24 17:48 200 MLS/HR Purified Water 100 ml Q6HR NG 04/18/24 12:00 04/18/24 17:48 100 ML objective Gen.: Patient lying in bed in medical ICU. Sedated, intubated on mechanical ventilator.. Head: Normocephalic, atraumatic. Eyes: PERRLA. Ears: Normal external anatomy. Throat: Endotracheal tube and orogastric tube in place. Neck: Supple, trachea midline. Chest: Transmitted breath sounds bilaterally. Decreased air entry bilaterally. No wheezing. Bibasilar crackles. Cardiovascular: Positive S1, positive S2. Regular rate and rhythm. Abdomen: Positive bowel sounds in all 4 quadrants. Soft, nontender, nondistended. : Hercules in place. Normal external genitalia. Rectal: Deferred. Skin: Warm, dry. Intact. Extremities: 2+ radial pulses bilaterally. No lower extremity edema. Neuro: Sedated. laboratory and microbiology Laboratory Tests 04/18/24 03:10 Test 04/18/24 03:10 Range/Units Serum Glucose 118 H 74-106 mg/dL Assessment/Plan Impression: Acute hypoxic respiratory failure On mechanical ventilator Drug overdose Status post cardiac arrest Return of spontaneous circulation Metabolic acidosis Lactic acidosis Elevated troponin Acute kidney injury Events: Remains on vent support Vent settings; assist control with respiratory rate of 20, tidal volume 500, PEEP of 5, FiO2 of 30%. Increase RR to 28. Brain MRI revealed cerebral edema. Follow up blood cultures - no growth x 48 hours ABG reviewed, compensated. On pressors for hemodynamic support On Levophed 4 mcg/min Titrate to keep mean arterial pressure greater than [address] head notable for findings of anoxic brain injury, diffuse cerebral edema. Awaiting review of EEG. On sedation with Versed and Fentanyl. Recommend to hyperventilate given cerebral edema. Monitor WBC count, trending down. Continue antibiotics, Zosyn and vancomycin Continue Coreg. JEISON, increased creatinine. Off Lasix Monitor renal function. Monitor electrolytes. Supplement as necessary. Free water d/t hypernatremia. Continue IV fluids w/ NS at 150 ml/hr. Monitor lactic acid. Tube feeds for nutritional support Poor prognosis due to anoxic brain injury. Labs and imaging reviewed. Rest of plan as noted below. Plan: s/p intubation on mechanical ventilator Urine toxicology was positive for fentanyl and amphetamines. CT head was negative. CXR image and report reviewed. Devices in place. Bilateral airspace opacities. ABG reviewed. Acidemia due to metabolic acidosis. Repeat ABG in the PM compensated. New vent settings; assist control with a respiratory rate of 28, tidal volume 500, PEEP of 5, FiO2 of 30%. Titrate FIO2 to keep O2 saturation above 92%. VAP bundle Daily ABG and CXR while intubated. Sedated for vent synchrony. Pressors for hemodynamic support. Titrate to keep MAP above 65 mmHg/SBP above 90 mmHg. S/p right radial arterial line placement. S/p central line placement. Empiric antibiotics. F/u cultures. Monitor renal function due to Acute kidney injury. Monitor electrolytes. Supplement as necessary. Monitor ins and outs Protonix for GI prophylaxis Lovenox for DVT prophylaxis. Poor prognosis due to anoxic brain injury. Condition: Critical Prognosis: Poor given multiple comorbidities. Rest of plan per hospitalist and other consultants. A total of 35 minutes of critical care time was spent reviewing the patient record, examining the patient, making a diagnostic and therapeutic plan, discussing this plan with the medical personnel, following up on diagnostic studies and following the patient for clinical stability excluding any and all procedures. At least 50% of this time was spent in direct, [id number] contact. Thank you Dr. Vazquez for allowing me to participate in this patient's care. Further recommendations will depend on patient's clinical course. Please do not hesitate to contact me if you have any questions or concerns. This medical document was created using an electronic medical record system with [employer] dictation system. Although this document has been carefully reviewed, there may still be some phonetic and typographical errors. These areas are purely typographical due to imperfections of the software programs, and do not reflect any compromise in the patient's medical care. Dietary Evaluation Review Comments: 1) If GI is accessible consider Jevity 1.2 @ 50 ml/hr x 24 hrs goal rate as tolerated 2) If pt remains NPO >7 days consider TPN to meet a least 75% of estimated needs 3) Advance pt diet when medically feasible to a Cardiac diet 4) Continue current plan of care Expected Outcomes/Goals: 1) Pt to receive nutrition support within 7 days of NPO status 2) Pt diet to advance 3) F/.U in 2-3 days Plan discussed with: Other (SETH Hernandez) Critical Care Time(min): 35 MARISEL AGUILA MD Apr 18, 2024 22:46
[2024-04-19] VITALS (104 sets, daily range): BP systolic 93–161; BP diastolic 35–87; PULSE 76–114; RESP 20–31; TEMP 97.8–99.8; O2SAT 100
[2024-04-19 04:25] LABS: Basophils # (auto) 0 10 ^3/uL (0-0.2); Basophils % (auto) 0.1 % (0.0-2.0); Eosinophils # (auto) 0.2 10 ^3/uL (0-0.8); Hematocrit 35.7 % (41.0-53.0); Hemoglobin 11.3 g/dL (13.5-17.5); Lymphocytes # (auto) 1.8 10 ^3/uL (0.4-5.4); Lymphocytes % (auto) 10.1 % (10.0-50.0); Mean Corpuscular Hemoglobin 29.5 pg (28.0-32.0); Mean Corpuscular Hgb Conc. 31.8 g/dL (32.0-36.0); Mean Corpuscular Volume 92.8 fL (80.0-100.0); Monocytes % (auto) 11.3 % (0.0-12.0); Neutrophils # (auto) 13.8 10 ^3/uL (1.6-8.6); Neutrophils % (auto) 77.5 % (37.0-80.0); Platelet Count (auto) 446 10^3/uL (140-450); Red Blood Cells 3.84 10^6/uL (4.5-5.90); Red Cell Distribution Width 14.5 % (11.8-14.3); White Blood Cell 17.8 10^3/uL (4.4-10.8)
[2024-04-19 04:38] LABS: Anion Gap 11 (5-15); Carbon Dioxide 21 mmol/L (20-31); Chloride 117 mmol/L (98-107); Potassium 4.6 mmol/L (3.5-5.1); Sodium 149 mmol/L (136-145)
[2024-04-19 04:39] LABS: Calcium 9.5 mg/dL (8.7-10.4)
[2024-04-19 04:44] LABS: BUN/Creatinine Ratio 26.8 (10.0-20.0); Blood Urea Nitrogen 30 mg/dL (9-23); Glucose 169 mg/dL (74-106); Magnesium 2.2 mg/dL (1.6-2.6)
[2024-04-19 04:46] LABS: Phosphorus 3.3 mg/dL (2.4-5.1)
--- NOTE | 2024-04-19 04:50 | DVH ---
CHEST RADIOGRAPH Indication: VENTILATED Technique: Single frontal view of the chest was obtained COMPARISON: XY CHEST PORTABLE on DOS: 04/17/24, XY CHEST PORTABLE on DOS: 04/16/24, XY CHEST PORTABLE on DOS: 04/15/24, XY CHEST PORTABLE on DOS: 04/17/24 FINDINGS: Lines and Tubes: Endotracheal tube, enteric catheter and right central venous catheter in satisfactor y position. Lungs: Congestion Pleura: No effusion. No pneumothorax. Cardiomediastinal contours: Unremarkable Bones: Unremarkable IMPRESSION: Lines and tubes in satisfactory position. No significant interval change.
[2024-04-19 07:41] LABS: Base Excess -3.9 mmol/L (-2.0-3.0)
--- NOTE | 2024-04-19 17:54 | DVHPNRES ---
Progress Note Date Seen: Apr 20, 2024 Resident Creating Document: [facility] L[facility] SHEELA Has the PT tested + for MRSA If YES, has PT been informed?: Yes Medical Necessity Reason Pt with a Central, PICC or Fol: Yes The following are medically ne: Hercules Catheter Reason for hercules catheter: Strict I&O Subjective Review of Systems Patient seen and examined at the bedside. Patient is sedated and on mechanical ventilation, review of system could not taken. Patient reports: No new complaints Changes from previous H/P or p: No Changes Objective vital signs Vital Sign Date Time Temp Pulse Resp B/P (MAP) Pulse Ox O2 Delivery O2 Flow Rate FiO2 04/19/24 16:45 105 24 126/60 (82) 100 117/52 (73) 04/19/24 16:00 30 04/19/24 16:00 Mechanical Ventilator+ 04/19/24 08:00 99.8 99.8 Total Intake and Output 04/18/24 04/18/24 04/19/24 15:00 23:00 07:00 Intake Total 614.50 ml 1280.25 ml 1258.5 ml Output Total 1225 ml 2250 ml Balance 614.50 ml 55.25 ml -991.5 ml medications Current Medications Medications Dose Ordered Sig/Moni Route Start Time Stop Time Status Last Admin Dose Admin Diagnostic Test (Pha) 1 strip Q6HR 04/12/24 12:00 04/19/24 12:18 1 STRIP Insulin Human Regular Q6HR SC 04/12/24 12:00 04/19/24 12:24 3 UNITS Dextrose 50 ml UD PRN IV 04/12/24 11:30 Diagnostic Test (Pha) 1 strip Q6HR 04/12/24 12:00 UNV Insulin Human Regular Q6HR SC 04/12/24 12:00 UNV Dextrose 50 ml UD PRN IV 04/12/24 11:30 UNV Enoxaparin Sodium 30 mg DAILY SC 04/13/24 10:00 UNV Enoxaparin Sodium 40 mg DAILY SC 04/13/24 10:00 04/19/24 10:07 40 MG Pantoprazole Sodium 40 mg DAILY IV 04/14/24 10:00 04/19/24 10:06 40 MG Acetaminophen 650 mg Q6HP PRN GT 04/15/24 08:15 04/16/24 05:58 650 MG Enteral Nutritional Formula 1,000 ml 50 GT 04/15/24 16:45 04/19/24 00:33 1,000 ML Dexmedetomidine HCl 400 mcg/ Dextrose 100 ml @ 3.52 mls/hr Q24H IV 04/15/24 19:15 04/16/24 14:50 3.52 MLS/HR Midazolam HCl 50 ml @ 1 mls/hr Q24H IV 04/16/24 18:45 04/19/24 14:48 8 MLS/HR Fentanyl Citrate 250 ml @ 2.5 mls/hr Q24H IV 04/17/24 09:00 04/19/24 14:48 20 MLS/HR Norepinephrine Bitartrate 250 ml @ 3.75 mls/hr Q24H IV 04/17/24 11:45 04/19/24 05:14 7.5 MLS/HR Vancomycin HCl 0 ml @ 0 mls/hr UD IV 04/17/24 13:45 Vancomycin HCl 200 ml @ 200 mls/hr Q12H IV 04/18/24 05:00 04/19/24 16:54 200 MLS/HR Purified Water 100 ml Q6HR NG 04/18/24 12:00 04/19/24 12:18 100 ML Desmopressin Acetate 2 mcg BID IV 04/19/24 22:00 Examination General Appearance: Patient is sedated and on mechanical ventilation with RASS score -4(unresponsive to the pain stimuli) HEENT: Pupils are mid dilated, fixed and not reactive to the light Respiratory: Clear to auscultation, Normal air movement Cardiovascular: Regular rate, Normal S1, Normal S2, No murmurs, no chest wall tenderness Abdominal: Normal bowel sounds, Soft, No tenderness, No hepatospenomegaly, No masses Extremities: No clubbing, No cyanosis, No edema, Normal pulses, No tenderness/swelling Skin: No rashes, No breakdown, No significant lesion laboratory and microbiology Laboratory Tests 04/19/24 03:00 Test 04/19/24 03:00 Range/Units Serum Glucose 169 H 74-106 mg/dL Microbiology Date/Time Source Procedure Growth Status 04/17/24 16:20 Blood Blood Culture - Preliminary Methicillin Resistant S.aureus Resulted 04/15/24 06:00 Sputum Gram Stain - Final Complete 04/15/24 06:00 Respiratory Culture - Final Methicillin Resistant S.aureus Complete 04/15/24 05:30 Urine - Catheterized Urine Culture - Final Complete 04/13/24 01:30 Nose MRSA Screen - Final Complete Labs and/or images reviewed: Labs reviewed by me, Image(s) reviewed by me Problem List/Assessment/Plan Problem List/Assessment/Plan NEURO: Acute metabolic encephalopathy likely due to sepsis/anoxic brain injury Patient is sedated on mechanical ventilation with a setting of (VT 500, RR 20, peep 5, FiO2 30%) Cerebral edema, likely due to cardiac arrest Anoxic brain injury, likely due to cardiac arrest RASS score is -4(unresponsive to pain stimuli), pupils are dilated, fixed and nonreactive to the light Head CT scan and brain MRI shows cerebral edema with effacement of sulci CARDIOVASCULAR: Status post cardiac arrest (likely due to fentanyl overdose), return to spontaneous circulation Non ST-elevation [place], likely due to cardiac arrest Dilated cardiomyopathy likely due to drug abuse(likely amphetamine) BNP is raised at 4674 Cardiology recommended conservative management Echocardiogram shows biventricular dilatation with ejection fraction 15% Patient is maintaining blood pressure without pressor PULMONARY: Acute hypoxic respiratory failure, likely due to pneumonia/cerebral edema leading to respiratory center suppression Pneumonia likely due to Gram-positive Gram-negative Patient is sedated on mechanical ventilation with a setting of (VT 500, RR 20, peep 5, FiO2 30%) Blood culture from 04/17/2024 shows MRSA sensitive to vancomycin Repeat blood culture ABGs showed metabolic alkalosis with pH 0.481, respiratory rate decreased to 20 from 24 Continue vancomycin GI: Transaminitis, likely ischemic secondary to cardiac arrest GI ppx: Protonix RENAL: JEISON, likely hemodynamically mediated, improved UTI, unspecified location, completed course of Zosyn(given for 7 days) Hyperchloremia Hypokalemia, improved Hypernatremia, 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 ENDOCRINE: 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 Purified water 100 mL q.6 hours LINES/DRAINS/ACCESS: * ETT: Intubated on 04/12/2024 * IV access: Right upper limb midline, placed on 04/14/24 Right radial arterial line, placed on 04/17/24 Right internal jugular CVC, placed on 04/17/24 Right upper limb peripheral line, placed on 04/12/2024 * Transurethral Hercules catheter Placed on 04/14/2020 * Drips Midazolam Fentanyl Polysubstance drug abuser UDS is positive for the fentanyl, amphetamine and cannabinoids DIET: Jevity 50 mL/hour DVT prophylaxis Lovenox CODE STATUS: Currently full code Case discussed in detail with the family including mother, and sister on phone, and ex partner in person on bedside. 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 Critical time spent more than 50 minutes, including patient care, chart review and updating the family. excluding any procedures. Case discussed with Dr. Langley Plan discussed with: Other (Mother, sister, ex partner and RN) My Orders My Orders Orders - [facility] L[facility] RESDIJORDAN Procedure Category Date Status Time Blood Culture CHELI 04/19/24 Logged 15:50 Dietary Evaluation Review Comments: 1) If GI is accessible consider Jevity 1.2 @ 50 ml/hr x 24 hrs goal rate as tolerated 2) If pt remains NPO >7 days consider TPN to meet a least 75% of estimated needs 3) Advance pt diet when medically feasible to a Cardiac diet 4) Continue current plan of care Expected Outcomes/Goals: 1) Pt to receive nutrition support within 7 days of NPO status 2) Pt diet to advance 3) F/.U in 2-3 days Date of Service: Apr 20, 2024 Billing Provider: MARIA EUGENIA LANGLEY MD Common Visit Codes: [id number] CARE 30-74 MIN [facility] RESDIENT Apr 19, 2024 17:53 MARIA EUGENIA LANGLEY MD Apr 22, 2024 13:40
[2024-04-19] MEDS: DESMOPRESSIN ACET 4 MCG/1 ML AMPULE IV SCH (22:08)
[2024-04-20] VITALS (111 sets, daily range): BP systolic 75–184; BP diastolic 39–113; PULSE 72–116; RESP 19–27; TEMP 97.7–99.9; O2SAT 90–100
[2024-04-20 04:15] LABS: Basophils # (auto) 0 10 ^3/uL (0-0.2); Basophils % (auto) 0.2 % (0.0-2.0); Eosinophils # (auto) 0.3 10 ^3/uL (0-0.8); Eosinophils % (auto) 1.8 % (0.0-7.0); Hematocrit 32.2 % (41.0-53.0); Hemoglobin 10.4 g/dL (13.5-17.5); Lymphocytes # (auto) 1.2 10 ^3/uL (0.4-5.4); Lymphocytes % (auto) 7.3 % (10.0-50.0); Mean Corpuscular Hemoglobin 30.2 pg (28.0-32.0); Mean Corpuscular Hgb Conc. 32.3 g/dL (32.0-36.0); Mean Corpuscular Volume 93.5 fL (80.0-100.0); Monocytes # (auto) 1.5 10 ^3/uL (0-1.3); Monocytes % (auto) 9.4 % (0.0-12.0); Neutrophils # (auto) 13.3 10 ^3/uL (1.6-8.6); Neutrophils % (auto) 81.3 % (37.0-80.0); Platelet Count (auto) 391 10^3/uL (140-450); Red Blood Cells 3.45 10^6/uL (4.5-5.90); White Blood Cell 16.4 10^3/uL (4.4-10.8)
[2024-04-20 04:31] LABS: Alanine Aminotransferase 52 U/L (7-40); Albumin 3.6 g/dL (3.2-4.8); Alkaline Phosphatase 120 U/L (46-116); Anion Gap 11 (5-15); Aspartate Aminotransferase 60 U/L (13-40); BUN/Creatinine Ratio 26.5 (10.0-20.0); Bilirubin, Total 0.5 mg/dL (0.2-1.0); Blood Urea Nitrogen 27 mg/dL (9-23); Calcium 9.5 mg/dL (8.7-10.4); Carbon Dioxide 22 mmol/L (20-31); Chloride 119 mmol/L (98-107); Glucose 198 mg/dL (74-106); Potassium 4.4 mmol/L (3.5-5.1); Sodium 152 mmol/L (136-145); Total Protein 7.2 g/dL (5.7-8.2)
--- NOTE | 2024-04-20 04:33 | DVH ---
CHEST RADIOGRAPH Indication: Pneumonia Technique: Single frontal view of the chest was obtained Comparison: XY CHEST PORTABLE on DOS: 04/19/24, XY CHEST PORTABLE on DOS: 04/17/24, XY CHEST PORTABLE on DOS: 04/16/24 IMPRESSION: 1. Heart appears normal in size. Support lines and tubes appear unchanged in satisfactory in positio n. The lungs appear relatively clear without focal airspace opacity, effusion, or pneumothorax.
[2024-04-20 07:51] LABS: Base Excess -1.1 mmol/L (-2.0-3.0)
[2024-04-20 16:42] LABS: Potassium 4.6 mmol/L (3.5-5.1)
[2024-04-20 16:49] LABS: Magnesium 2.2 mg/dL (1.6-2.6)
--- NOTE | 2024-04-20 19:37 | DVHPNRES ---
Progress Note Date Seen: Apr 20, 2024 Resident Creating Document: [facility] L[facility] SHEELA Has the PT tested + for MRSA If YES, has PT been informed?: Yes Medical Necessity Reason Pt with a Central, PICC or Fol: Yes The following are medically ne: Hercules Catheter Reason for hercules catheter: Strict I&O Subjective Review of Systems Patient seen and examined at the bedside. Patient is sedated and on mechanical ventilation could not take ROS. Patient reports: No new complaints Changes from previous H/P or p: No Changes Objective vital signs Vital Sign Date Time Temp Pulse Resp B/P (MAP) Pulse Ox O2 Delivery O2 Flow Rate FiO2 04/20/24 18:00 98.6 89 20 106/70 (82) 97 209.5 101/54 (70) 04/20/24 17:57 Mechanical Ventilator+ 30 30 Total Intake and Output 04/19/24 04/19/24 04/20/24 15:00 23:00 07:00 Intake Total 379.5 ml 1098 ml 949 ml Output Total 2350 ml 1250 ml Balance 379.5 ml -1252 ml -301 ml medications Current Medications Medications Dose Ordered Sig/Moni Route Start Time Stop Time Status Last Admin Dose Admin Diagnostic Test (Pha) 1 strip Q6HR 04/12/24 12:00 04/20/24 17:49 1 STRIP Insulin Human Regular Q6HR SC 04/12/24 12:00 04/20/24 12:43 2 UNITS Dextrose 50 ml UD PRN IV 04/12/24 11:30 Diagnostic Test (Pha) 1 strip Q6HR 04/12/24 12:00 UNV Insulin Human Regular Q6HR SC 04/12/24 12:00 UNV Dextrose 50 ml UD PRN IV 04/12/24 11:30 UNV Enoxaparin Sodium 30 mg DAILY SC 04/13/24 10:00 UNV Enoxaparin Sodium 40 mg DAILY SC 04/13/24 10:00 04/20/24 09:44 40 MG Pantoprazole Sodium 40 mg DAILY IV 04/14/24 10:00 04/20/24 09:42 40 MG Acetaminophen 650 mg Q6HP PRN GT 04/15/24 08:15 04/16/24 05:58 650 MG Enteral Nutritional Formula 1,000 ml 50 GT 04/15/24 16:45 04/19/24 23:54 1,000 ML Dexmedetomidine HCl 400 mcg/ Dextrose 100 ml @ 3.52 mls/hr Q24H IV 04/15/24 19:15 04/16/24 14:50 3.52 MLS/HR Midazolam HCl 50 ml @ 1 mls/hr Q24H IV 04/16/24 18:45 04/20/24 12:42 7 MLS/HR Fentanyl Citrate 250 ml @ 2.5 mls/hr Q24H IV 04/17/24 09:00 04/20/24 13:14 17.5 MLS/HR Norepinephrine Bitartrate 250 ml @ 3.75 mls/hr Q24H IV 04/17/24 11:45 04/19/24 05:14 7.5 MLS/HR Vancomycin HCl 0 ml @ 0 mls/hr UD IV 04/17/24 13:45 Vancomycin HCl 200 ml @ 200 mls/hr Q12H IV 04/18/24 05:00 04/20/24 17:39 200 MLS/HR Purified Water 100 ml Q6HR NG 04/18/24 12:00 04/20/24 17:49 100 ML Desmopressin Acetate 2 mcg BID IV 04/19/24 22:00 04/20/24 09:43 2 MCG Examination General Appearance: Patient is sedated and on mechanical ventilation with RASS score -4(unresponsive to the pain stimuli) HEENT: Pupils are mid dilated, fixed and not reactive to the light Respiratory: Clear to auscultation, Normal air movement Cardiovascular: Regular rate, Normal S1, Normal S2, No murmurs, no chest wall tenderness Abdominal: Normal bowel sounds, Soft, No tenderness, No hepatospenomegaly, No masses Extremities: No clubbing, No cyanosis, No edema, Normal pulses, No tenderness/swelling Skin: No rashes, No breakdown, No significant lesion laboratory and microbiology Laboratory Tests 04/20/24 15:16 04/20/24 03:30 Test 04/20/24 03:30 Range/Units Serum Glucose 198 H 74-106 mg/dL Microbiology Date/Time Source Procedure Growth Status 04/19/24 17:46 Blood Blood Culture - Preliminary NO GROWTH AFTER 24 HOURS OF INCUBATION. Resulted 04/15/24 06:00 Sputum Gram Stain - Final Complete 04/15/24 06:00 Respiratory Culture - Final Methicillin Resistant S.aureus Complete 04/15/24 05:30 Urine - Catheterized Urine Culture - Final Complete 04/13/24 01:30 Nose MRSA Screen - Final Complete Labs and/or images reviewed: Labs reviewed by me, Image(s) reviewed by me Problem List/Assessment/Plan Problem List/Assessment/Plan NEURO: Acute metabolic encephalopathy likely due to sepsis/anoxic brain injury Patient is sedated on mechanical ventilation with a setting of (VT 500, RR 20, peep 5, FiO2 30%) Cerebral edema, likely due to cardiac arrest Anoxic brain injury, likely due to cardiac arrest RASS score is -4(unresponsive to pain stimuli), pupils are dilated, fixed and nonreactive to the light Head CT scan and brain MRI shows cerebral edema with effacement of sulci CARDIOVASCULAR: Status post cardiac arrest (likely due to fentanyl overdose), return to spontaneous circulation Non ST-elevation [place], likely due to cardiac arrest Dilated cardiomyopathy likely due to drug abuse(likely amphetamine) BNP is raised at 4674 Cardiology recommended conservative management Echocardiogram shows biventricular dilatation with ejection fraction 15% Patient is maintaining blood pressure without pressor PULMONARY: Acute hypoxic respiratory failure, likely due to pneumonia/cerebral edema leading to respiratory center suppression Pneumonia likely due to Gram-positive Gram-negative Patient is sedated on mechanical ventilation with a setting of (VT 500, RR 20, peep 5, FiO2 30%) Blood culture from 04/17/2024 shows MRSA sensitive to vancomycin Repeat culture from 04/19/2024 shows no growth after 24 hours ABGs showed metabolic alkalosis with pH 0.481, respiratory rate decreased to 20 from 24 Continue vancomycin GI: Transaminitis, likely ischemic secondary to cardiac arrest GI ppx: Protonix RENAL: JEISON, likely hemodynamically mediated, improved UTI, unspecified location, completed course of Zosyn(given for 7 days) Hyperchloremia Hypokalemia, improved Hypernatremia, 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 Purified water 100 mL q.6 hours LINES/DRAINS/ACCESS: * ETT: Intubated on 04/12/2024 * IV access: Right upper limb midline, placed on 04/14/24 Right radial arterial line, placed on 04/17/24 Right internal jugular CVC, placed on 04/17/24 Right upper limb peripheral line, placed on 04/12/2024 * Transurethral Hercules catheter Placed on 04/14/2020 Polysubstance drug abuser UDS is positive for the fentanyl, amphetamine and cannabinoids DIET: Jevity 50 mL/hour DVT prophylaxis Lovenox CODE STATUS: Currently full code Case discussed in detail with the family including mother, and sister on video call, and ex partner in person on bedside. 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 Critical time spent more than 55 minutes, including patient care, chart review and updating the family. excluding any procedures. Case discussed with Dr. Langley Plan discussed with: Patient, Other (Mother, sister, ex partner and RN) My Orders My Orders Orders - [facility] LUU RESDIJORDAN Procedure Category Date Status Time Complete Blood Count LAB 04/21/24 Verified 04:00 Comprehensive LAB 04/21/24 Verified Metabolic Panel 04:00 Chest Xray 1 View XY 04/21/24 Logged 04:00 Abg W/ Co-Ox RT 04/21/24 Logged 04:00 Dietary Evaluation Review Comments: 1) If GI is accessible consider Jevity 1.2 @ 50 ml/hr x 24 hrs goal rate as tolerated 2) If pt remains NPO >7 days consider TPN to meet a least 75% of estimated needs 3) Advance pt diet when medically feasible to a Cardiac diet 4) Continue current plan of care Expected Outcomes/Goals: 1) Pt to receive nutrition support within 7 days of NPO status 2) Pt diet to advance 3) F/.U in 2-3 days Date of Service: Apr 20, 2024 Billing Provider: MARIA EUGENIA LANGLEY MD Common Visit Codes: [id number] CARE 30-74 MIN [facility] RESDIENT Apr 20, 2024 19:37 MARIA EUGENIA LANGLEY MD Apr 22, 2024 13:39
[2024-04-20] MEDS: VASOPRESSIN 20 UNITS in SODIUM CHL 0.9% 99 ML IV SCH (19:45)
[2024-04-21] VITALS (108 sets, daily range): BP systolic 70–138; BP diastolic 38–93; PULSE 71–97; RESP 14–24; TEMP 97–101.1; O2SAT 88–100
[2024-04-21 04:07] LABS: Basophils # (auto) 0.1 10 ^3/uL (0-0.2); Basophils % (auto) 0.4 % (0.0-2.0); Eosinophils # (auto) 0.7 10 ^3/uL (0-0.8); Eosinophils % (auto) 4.4 % (0.0-7.0); Hematocrit 31.9 % (41.0-53.0); Hemoglobin 10.3 g/dL (13.5-17.5); Lymphocytes # (auto) 2.2 10 ^3/uL (0.4-5.4); Lymphocytes % (auto) 13.7 % (10.0-50.0); Mean Corpuscular Hemoglobin 29.7 pg (28.0-32.0); Mean Corpuscular Hgb Conc. 32.1 g/dL (32.0-36.0); Mean Corpuscular Volume 92.6 fL (80.0-100.0); Monocytes # (auto) 1.6 10 ^3/uL (0-1.3); Monocytes % (auto) 9.7 % (0.0-12.0); Neutrophils # (auto) 11.8 10 ^3/uL (1.6-8.6); Neutrophils % (auto) 71.8 % (37.0-80.0); Nucleated Red Blood Cells % 0.1 %; Platelet Count (auto) 520 10^3/uL (140-450); Red Blood Cells 3.45 10^6/uL (4.5-5.90); Red Cell Distribution Width 14.3 % (11.8-14.3); White Blood Cell 16.3 10^3/uL (4.4-10.8)
[2024-04-21 04:21] LABS: Alanine Aminotransferase 45 U/L (7-40); Albumin 3.7 g/dL (3.2-4.8); Alkaline Phosphatase 115 U/L (46-116); Anion Gap 9 (5-15); Aspartate Aminotransferase 34 U/L (13-40); BUN/Creatinine Ratio 36.4 (10.0-20.0); Bilirubin, Total 0.5 mg/dL (0.2-1.0); Blood Urea Nitrogen 32 mg/dL (9-23); Calcium 9.8 mg/dL (8.7-10.4); Carbon Dioxide 23 mmol/L (20-31); Chloride 117 mmol/L (98-107); Glucose 105 mg/dL (74-106); Potassium 4.2 mmol/L (3.5-5.1); Sodium 149 mmol/L (136-145); Total Protein 7.5 g/dL (5.7-8.2)
--- NOTE | 2024-04-21 04:36 | DVH ---
CHEST RADIOGRAPH Indication: Pneumonia Technique: Single frontal view of the chest was obtained COMPARISON: XY CHEST XRAY 1 VIEW on DOS: 04/20/24, XY CHEST PORTABLE on DOS: 04/19/24, XY CHEST MEI BLE on DOS: 04/17/24 FINDINGS: Lines and Tubes: Endotracheal tube, enteric catheter and right central venous catheter in satisfactor y position. Lungs: Mild congestion Pleura: No effusion. No pneumothorax. Cardiomediastinal contours: Unremarkable Bones: Unremarkable IMPRESSION: Lines and tubes in satisfactory position. No significant interval change.
[2024-04-21 06:47] LABS: Base Excess -3.8 mmol/L (-2.0-3.0)
--- NOTE | 2024-04-21 19:40 | DVHPNRES ---
Progress Note Date Seen: Apr 21, 2024 Resident Creating Document: [facility]ED[facility] LUU SHEELA Has the PT tested + for MRSA If YES, has PT been informed?: Yes Medical Necessity Reason Pt with a Central, PICC or Fol: Yes The following are medically ne: Hercules Catheter Reason for hercules catheter: Strict I&O Subjective Review of Systems Patient seen and examined at the bedside. Patient is sedated and on mechanical ventilation could not take ROS. Patient reports: No new complaints Changes from previous H/P or p: No Changes Objective vital signs Vital Sign Date Time Temp Pulse Resp B/P (MAP) Pulse Ox O2 Delivery O2 Flow Rate FiO2 04/21/24 18:45 98.2 71 16 90/56 (67) 98 208.8 102/50 (67) 04/21/24 18:13 30 04/21/24 18:00 Mechanical Ventilator+ Total Intake and Output 04/20/24 04/20/24 04/21/24 15:00 23:00 07:00 Intake Total 178.75 ml 700.00 ml 594.50 ml Output Total 820 ml 800 ml Balance 178.75 ml -120.00 ml -205.50 ml medications Current Medications Medications Dose Ordered Sig/Moni Route Start Time Stop Time Status Last Admin Dose Admin Diagnostic Test (Pha) 1 strip Q6HR 04/12/24 12:00 04/21/24 17:32 1 STRIP Insulin Human Regular Q6HR SC 04/12/24 12:00 04/20/24 12:43 2 UNITS Dextrose 50 ml UD PRN IV 04/12/24 11:30 Diagnostic Test (Pha) 1 strip Q6HR 04/12/24 12:00 UNV Insulin Human Regular Q6HR SC 04/12/24 12:00 UNV Dextrose 50 ml UD PRN IV 04/12/24 11:30 UNV Enoxaparin Sodium 30 mg DAILY SC 04/13/24 10:00 UNV Enoxaparin Sodium 40 mg DAILY SC 04/13/24 10:00 04/21/24 09:32 40 MG Pantoprazole Sodium 40 mg DAILY IV 04/14/24 10:00 04/21/24 09:32 40 MG Acetaminophen 650 mg Q6HP PRN GT 04/15/24 08:15 04/21/24 11:52 650 MG Enteral Nutritional Formula 1,000 ml 50 GT 04/15/24 16:45 04/21/24 06:15 1,000 ML Dexmedetomidine HCl 400 mcg/ Dextrose 100 ml @ 3.52 mls/hr Q24H IV 04/15/24 19:15 04/16/24 14:50 3.52 MLS/HR Midazolam HCl 50 ml @ 1 mls/hr Q24H IV 04/16/24 18:45 04/20/24 12:42 7 MLS/HR Fentanyl Citrate 250 ml @ 2.5 mls/hr Q24H IV 04/17/24 09:00 04/20/24 13:14 17.5 MLS/HR Norepinephrine Bitartrate 250 ml @ 3.75 mls/hr Q24H IV 04/17/24 11:45 04/21/24 10:45 22.5 MLS/HR Vancomycin HCl 0 ml @ 0 mls/hr UD IV 04/17/24 13:45 Vancomycin HCl 200 ml @ 200 mls/hr Q12H IV 04/18/24 05:00 04/22/24 18:30 04/21/24 16:17 200 MLS/HR Purified Water 100 ml Q6HR NG 04/18/24 12:00 04/21/24 17:32 100 ML Desmopressin Acetate 2 mcg BID IV 04/19/24 22:00 04/21/24 09:33 2 MCG Vasopressin 20 units/Sodium Chloride 100 ml @ 9 mls/hr Q11H7M IV 04/20/24 19:45 Vancomycin HCl 200 ml @ 200 mls/hr Q10H IV 04/22/24 03:00 Examination General Appearance: Patient is sedated and on mechanical ventilation with RASS score -4(unresponsive to the pain stimuli) HEENT: Pupils are mid dilated, fixed and not reactive to the light Respiratory: Clear to auscultation, Normal air movement Cardiovascular: Regular rate, Normal S1, Normal S2, No murmurs, no chest wall tenderness Abdominal: Normal bowel sounds, Soft, No tenderness, No hepatospenomegaly, No masses Extremities: No clubbing, No cyanosis, No edema, Normal pulses, No tenderness/swelling Skin: No rashes, No breakdown, No significant lesion laboratory and microbiology Laboratory Tests 04/21/24 03:10 Test 04/21/24 03:10 Range/Units Serum Glucose 105 74-106 mg/dL Microbiology Date/Time Source Procedure Growth Status 04/19/24 17:46 Blood Blood Culture - Preliminary NO GROWTH AFTER 48 HOURS OF INCUBATION. Resulted 04/15/24 06:00 Sputum Gram Stain - Final Complete 04/15/24 06:00 Respiratory Culture - Final Methicillin Resistant S.aureus Complete 04/15/24 05:30 Urine - Catheterized Urine Culture - Final Complete 04/13/24 01:30 Nose MRSA Screen - Final Complete Labs and/or images reviewed: Labs reviewed by me, Image(s) reviewed by me Problem List/Assessment/Plan Problem List/Assessment/Plan NEURO: Acute metabolic encephalopathy likely due to sepsis/anoxic brain injury Patient is sedated on mechanical ventilation with a setting of (VT 500, RR 16, peep 5, FiO2 30%) Cerebral edema, likely due to cardiac arrest Anoxic brain injury, likely due to cardiac arrest RASS score is -5(unresponsive to pain stimuli), pupils are dilated, fixed and nonreactive to the light Head CT scan and brain MRI shows cerebral edema with effacement of sulci CARDIOVASCULAR: Status post cardiac arrest (likely due to fentanyl overdose), return to spontaneous circulation Non ST-elevation [place], likely due to cardiac arrest Dilated cardiomyopathy likely due to drug abuse(likely amphetamine) BNP is raised at 4674 Cardiology recommended conservative management Echocardiogram shows biventricular dilatation with ejection fraction 15% Patient is maintaining blood pressure without pressor PULMONARY: Acute hypoxic respiratory failure, likely due to pneumonia/cerebral edema leading to respiratory center suppression Septic shock likely due to pneumonia/UTI Pneumonia likely due to Gram-positive Gram-negative Patient is sedated on mechanical ventilation with a setting of (VT 500, RR 20, peep 5, FiO2 30%) Last night blood pressure dropped, started back Levophed Blood culture from 04/17/2024 shows MRSA sensitive to vancomycin Repeat blood culture, after 48 hours shows no growth ABGs showed respiratory alkalosis with metabolic compensation, pH 7.43, pCO2 929.3, PO2 114, HC03 19.4 Continue vancomycin GI: Transaminitis, likely ischemic secondary to cardiac arrest GI ppx: Protonix RENAL: JEISON, likely hemodynamically mediated, improved UTI, unspecified location, completed course of Zosyn(given for 7 days) Hyperchloremia Hypokalemia, improved Hypernatremia, 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 Purified water 100 mL q.6 hours LINES/DRAINS/ACCESS: * ETT: Intubated on 04/12/2024 * IV access: Right upper limb midline, placed on 04/14/24 Right radial arterial line, placed on 04/17/24 Right internal jugular CVC, placed on 04/17/24 Right upper limb peripheral line, placed on 04/12/2024 * Transurethral Hercules catheter Placed on 04/14/2020 * Drips Levophed 10 Polysubstance drug abuser UDS is positive for the fentanyl, amphetamine and cannabinoids DIET: Jevity 50 mL/hour DVT prophylaxis Lovenox CODE STATUS: Currently full code Case discussed in detail with the sister on phone. 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 Critical time spent more than 40 minutes, including patient care, chart review and updating the family. excluding any procedures. Case discussed with Dr. Langley Plan discussed with: Patient My Orders My Orders Orders - [facility] LUU Procedure Category Date Status Time Ventilator Orders RT 04/21/24 Transmitted 12:55 Comprehensive LAB 04/22/24 Verified Metabolic Panel 04:00 Complete Blood Count LAB 04/22/24 Verified 04:00 Chest Xray 1 View XY 04/22/24 Logged 04:00 Abg W/ Co-Ox RT 04/22/24 Logged 04:00 Dietary Evaluation Review Comments: 1) If GI is accessible consider Jevity 1.2 @ 50 ml/hr x 24 hrs goal rate as tolerated 2) If pt remains NPO >7 days consider TPN to meet a least 75% of estimated needs 3) Advance pt diet when medically feasible to a Cardiac diet 4) Continue current plan of care Expected Outcomes/Goals: 1) Pt to receive nutrition support within 7 days of NPO status 2) Pt diet to advance 3) F/.U in 2-3 days Date of Service: Apr 21, 2024 Billing Provider: MARIA EUGENIA LANGLEY MD Common Visit Codes: [id number] CARE 30-74 MIN SOL[facility] LUU Apr 21, 2024 19:40 MARIA EUGENIA LANGLEY MD Apr 22, 2024 13:50
[2024-04-22] VITALS (104 sets, daily range): BP systolic 82–147; BP diastolic 38–96; PULSE 73–112; RESP 13–16; TEMP 97–99.1; O2SAT 92–100
[2024-04-22] MEDS: VANCOMYCIN 1GM/250ML KIT 200 ML IV SCH (03:00)
[2024-04-22 04:05] LABS: Basophils # (auto) 0.1 10 ^3/uL (0-0.2); Basophils % (auto) 0.4 % (0.0-2.0); Eosinophils # (auto) 0.6 10 ^3/uL (0-0.8); Lymphocytes # (auto) 1.6 10 ^3/uL (0.4-5.4); Red Cell Distribution Width 14.3 % (11.8-14.3)
[2024-04-22 04:09] LABS: Eosinophils % (auto) 3.5 % (0.0-7.0); Hematocrit 29.9 % (41.0-53.0); Hemoglobin 9.8 g/dL (13.5-17.5); Lymphocytes % (auto) 9.4 % (10.0-50.0); Mean Corpuscular Hemoglobin 30.4 pg (28.0-32.0); Mean Corpuscular Hgb Conc. 32.8 g/dL (32.0-36.0); Mean Corpuscular Volume 92.6 fL (80.0-100.0); Monocytes # (auto) 1.5 10 ^3/uL (0-1.3); Monocytes % (auto) 9.1 % (0.0-12.0); Neutrophils # (auto) 12.9 10 ^3/uL (1.6-8.6); Neutrophils % (auto) 77.6 % (37.0-80.0); Platelet Count (auto) 479 10^3/uL (140-450); Red Blood Cells 3.23 10^6/uL (4.5-5.90); White Blood Cell 16.6 10^3/uL (4.4-10.8)
[2024-04-22 04:25] LABS: Albumin 3.6 g/dL (3.2-4.8); Anion Gap 10 (5-15); Calcium 9.7 mg/dL (8.7-10.4); Carbon Dioxide 23 mmol/L (20-31); Glucose 100 mg/dL (74-106); Potassium 4.2 mmol/L (3.5-5.1)
[2024-04-22 04:26] LABS: Bilirubin, Total 0.4 mg/dL (0.2-1.0); Total Protein 7.6 g/dL (5.7-8.2)
[2024-04-22 04:28] LABS: Alanine Aminotransferase 60 U/L (7-40); Alkaline Phosphatase 175 U/L (46-116); Aspartate Aminotransferase 92 U/L (13-40); Blood Urea Nitrogen 32 mg/dL (9-23); Chloride 114 mmol/L (98-107); Sodium 147 mmol/L (136-145)
--- NOTE | 2024-04-22 05:19 | DVH ---
CHEST RADIOGRAPH Indication: Pneumonia Technique: Single frontal view of the chest was obtained Comparison: XY CHEST XRAY 1 VIEW on DOS: 04/21/24, XY CHEST XRAY 1 VIEW on DOS: 04/20/24, XY CHEST PO RTABLE on DOS: 04/19/24 IMPRESSION: Heart appears mildly prominent in size. The lungs appear clear without focal airspace opacity, effus ion, or pneumothorax. Support lines and tubes appear unchanged in satisfactory position.
--- NOTE | 2024-04-22 12:51 | DVHEEG2 ---
Neurology EEG Procedural Note Procedural Note Date of service: April 16, 2024 Diagnosis: Anoxic encephalopathy Patient status: Unresponsive. Conditions of recording: This is an 18 channel EEG recording with electrode placement following guidelines as per the 10/20 international classification. No activating procedure was performed. Technical summary: The entire recording was degraded by abundant, persistent electrical and lead artifact, making any semblance of accurate interpretation impossible. In any case, there did not appear to be any active epileptiform discharges or electrographic seizures seen. Impression: This is a significantly suboptimal EEG study, however, with no evidence of active epileptiform discharges or electrographic seizures seen. Clinical correlation is imperative. MARTINA VARGAS MD Apr 22, 2024 12:51
--- NOTE | 2024-04-22 16:02 | DVHPNRES ---
Progress Note Date Seen: Apr 22, 2024 Resident Creating Document: SOLEDAD LUU SHEELA Has the PT tested + for MRSA If YES, has PT been informed?: Yes Medical Necessity Reason Pt with a Central, PICC or Fol: Yes The following are medically ne: Hercules Catheter Reason for hercules catheter: Strict I&O Subjective Review of Systems Patient seen and examined at the bedside. Patient is sedated and on mechanical ventilation could not take ROS. Patient reports: No new complaints, Feels better Changes from previous H/P or p: No Changes Objective vital signs Vital Sign Date Time Temp Pulse Resp B/P (MAP) Pulse Ox O2 Delivery O2 Flow Rate FiO2 04/22/24 15:19 132/77 04/22/24 14:01 98.6 109 16 97 209.5 04/22/24 14:00 30 04/22/24 14:00 Mechanical Ventilator+ Total Intake and Output 04/21/24 04/21/24 04/22/24 15:00 23:00 07:00 Intake Total 380 ml 980.62 ml 985 ml Output Total 850 ml 800 ml Balance 380 ml 130.62 ml 185 ml medications Current Medications Medications Dose Ordered Sig/Moni Route Start Time Stop Time Status Last Admin Dose Admin Diagnostic Test (Pha) 1 strip Q6HR 04/12/24 12:00 04/22/24 11:33 1 STRIP Insulin Human Regular Q6HR SC 04/12/24 12:00 04/20/24 12:43 2 UNITS Dextrose 50 ml UD PRN IV 04/12/24 11:30 Diagnostic Test (Pha) 1 strip Q6HR 04/12/24 12:00 UNV Insulin Human Regular Q6HR SC 04/12/24 12:00 UNV Dextrose 50 ml UD PRN IV 04/12/24 11:30 UNV Enoxaparin Sodium 30 mg DAILY SC 04/13/24 10:00 UNV Enoxaparin Sodium 40 mg DAILY SC 04/13/24 10:00 04/22/24 09:53 40 MG Pantoprazole Sodium 40 mg DAILY IV 04/14/24 10:00 04/22/24 09:53 40 MG Acetaminophen 650 mg Q6HP PRN GT 04/15/24 08:15 04/21/24 11:52 650 MG Enteral Nutritional Formula 1,000 ml 50 GT 04/15/24 16:45 04/22/24 05:55 1,000 ML Dexmedetomidine HCl 400 mcg/ Dextrose 100 ml @ 3.52 mls/hr Q24H IV 04/15/24 19:15 04/16/24 14:50 3.52 MLS/HR Midazolam HCl 50 ml @ 1 mls/hr Q24H IV 04/16/24 18:45 04/20/24 12:42 7 MLS/HR Fentanyl Citrate 250 ml @ 2.5 mls/hr Q24H IV 04/17/24 09:00 04/20/24 13:14 17.5 MLS/HR Norepinephrine Bitartrate 250 ml @ 3.75 mls/hr Q24H IV 04/17/24 11:45 04/22/24 12:55 18.75 MLS/HR Vancomycin HCl 0 ml @ 0 mls/hr UD IV 04/17/24 13:45 Purified Water 100 ml Q6HR NG 04/18/24 12:00 04/22/24 11:33 100 ML Desmopressin Acetate 2 mcg BID IV 04/19/24 22:00 04/22/24 09:54 2 MCG Vasopressin 20 units/Sodium Chloride 100 ml @ 9 mls/hr Q11H7M IV 04/20/24 19:45 Vancomycin HCl 200 ml @ 200 mls/hr Q10H IV 04/22/24 03:00 04/22/24 12:58 200 MLS/HR Examination General Appearance: Patient is sedated and on mechanical ventilation with RASS score -5 (unresponsive to the pain stimuli) HEENT: Pupils are dilated, fixed and not reactive to the light Respiratory: Clear to auscultation, Normal air movement Cardiovascular: Regular rate, Normal S1, Normal S2, No murmurs, no chest wall tenderness Abdominal: Normal bowel sounds, Soft, No tenderness, No hepatospenomegaly, No masses Extremities: No clubbing, No cyanosis, No edema, Normal pulses, No tenderness/swelling Skin: No rashes, No breakdown, No significant lesion laboratory and microbiology Laboratory Tests 04/22/24 03:33 Test 04/22/24 03:33 Range/Units Serum Glucose 100 74-106 mg/dL Microbiology Date/Time Source Procedure Growth Status 04/19/24 17:46 Blood Blood Culture - Preliminary NO GROWTH AFTER 48 HOURS OF INCUBATION. Resulted 04/15/24 06:00 Sputum Gram Stain - Final Complete 04/15/24 06:00 Respiratory Culture - Final Methicillin Resistant S.aureus Complete 04/15/24 05:30 Urine - Catheterized Urine Culture - Final Complete 04/13/24 01:30 Nose MRSA Screen - Final Complete Labs and/or images reviewed: Labs reviewed by me, Image(s) reviewed by me Problem List/Assessment/Plan Problem List/Assessment/Plan NEURO: Acute metabolic encephalopathy likely due to sepsis/anoxic brain injury Patient is sedated on mechanical ventilation with a setting of (VT 500, RR 16, peep 5, FiO2 30%) Cerebral edema, likely due to cardiac arrest Anoxic brain injury, likely due to cardiac arrest RASS score is -5(unresponsive to pain stimuli), pupils are dilated, fixed and nonreactive to the light Head CT scan and brain MRI shows cerebral edema with effacement of sulci CARDIOVASCULAR: Status post cardiac arrest (likely due to fentanyl overdose), return to spontaneous circulation Non ST-elevation ID, likely due to cardiac arrest Dilated cardiomyopathy likely due to drug abuse(likely amphetamine) BNP is raised at 4674 Cardiology recommended conservative management Echocardiogram shows biventricular dilatation with ejection fraction 15% Patient is maintaining blood pressure without pressor PULMONARY: Acute hypoxic respiratory failure, likely due to pneumonia/cerebral edema leading to respiratory center suppression Septic shock likely due to pneumonia/UTI Pneumonia likely due to Gram-positive Gram-negative Patient is sedated on mechanical ventilation with a setting of (VT 500, RR 20, peep 5, FiO2 30%) Last night blood pressure dropped, started back Levophed Blood culture from 04/17/2024 shows MRSA sensitive to vancomycin Repeat blood culture, after 48 hours shows no growth ABGs showed respiratory alkalosis with metabolic compensation, pH 7.43, pCO2 929.3, PO2 114, HC03 19.4 Continue vancomycin GI: Transaminitis, likely ischemic secondary to cardiac arrest RENAL: JEISON, likely hemodynamically mediated, improved UTI, unspecified location, completed course of Zosyn(given for 7 days) Hyperchloremia Hypokalemia, improved Hypernatremia, 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 Purified water 100 mL q.6 hours LINES/DRAINS/ACCESS: * ETT: Intubated on 04/12/2024 * IV access: Right upper limb midline, placed on 04/14/24 Right radial arterial line, placed on 04/17/24 Right internal jugular CVC, placed on 04/17/24 Right upper limb peripheral line, placed on 04/12/2024 * Transurethral Hercules catheter Placed on 04/14/2020 * Drips Levophed 10 Polysubstance drug abuser UDS is positive for the fentanyl, amphetamine and cannabinoids DIET: OG tube: Jevity 50 mL/hour DVT prophylaxis: Lovenox 40 GI ppx: Protonix 40 CODE STATUS: Currently full code Case discussed in detail with the sister on phone. 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 The mother lives on the [facility], wants to visit the patient before taking any decision regarding goal of care. Waiting for the mother to visit the patient. Critical time spent more than 45 minutes, including patient care, chart review and updating the family. excluding any procedures. Case discussed with Dr. Langley Plan discussed with: Patient, Other (Sister and RN) Dietary Evaluation Review Comments: 1) If GI is accessible consider Jevity 1.2 @ 50 ml/hr x 24 hrs goal rate as tolerated 2) If pt remains NPO >7 days consider TPN to meet a least 75% of estimated needs 3) Advance pt diet when medically feasible to a Cardiac diet 4) Continue current plan of care Expected Outcomes/Goals: 1) Pt to receive nutrition support within 7 days of NPO status 2) Pt diet to advance 3) F/.U in 2-3 days Date of Service: Apr 22, 2024 Billing Provider: MARIA EUGENIA LANGLEY MD Common Visit Codes: [id number] CARE 30-74 MIN JUSJAMEYLORETO YOUNGDIENT Apr 22, 2024 16:02 MARIA EUGENIA LANGLEY MD Apr 23, 2024 13:09
[2024-04-23] VITALS (106 sets, daily range): BP systolic 85–146; BP diastolic 36–86; PULSE 71–91; RESP 16–19; TEMP 98.4–99.3; O2SAT 95–100
[2024-04-23 03:55] LABS: Basophils # (auto) 0.1 10 ^3/uL (0-0.2); Basophils % (auto) 0.3 % (0.0-2.0); Eosinophils % (auto) 2.2 % (0.0-7.0); Hematocrit 30.6 % (41.0-53.0); Hemoglobin 9.8 g/dL (13.5-17.5); Mean Corpuscular Hgb Conc. 32.2 g/dL (32.0-36.0); Mean Corpuscular Volume 93.2 fL (80.0-100.0); Monocytes # (auto) 1.8 10 ^3/uL (0-1.3); Monocytes % (auto) 8.8 % (0.0-12.0); Red Blood Cells 3.28 10^6/uL (4.5-5.90); Red Cell Distribution Width 14.6 % (11.8-14.3)
[2024-04-23 03:58] LABS: Eosinophils # (auto) 0.4 10 ^3/uL (0-0.8); Lymphocytes # (auto) 1.3 10 ^3/uL (0.4-5.4); Lymphocytes % (auto) 6.5 % (10.0-50.0); Neutrophils # (auto) 17.1 10 ^3/uL (1.6-8.6); Neutrophils % (auto) 82.2 % (37.0-80.0); Platelet Count (auto) 545 10^3/uL (140-450); White Blood Cell 20.8 10^3/uL (4.4-10.8)
[2024-04-23 04:21] LABS: Albumin 3.8 g/dL (3.2-4.8); Anion Gap 11 (5-15); BUN/Creatinine Ratio 34.1 (10.0-20.0); Calcium 9.8 mg/dL (8.7-10.4); Glucose 98 mg/dL (74-106); Potassium 4.9 mmol/L (3.5-5.1); Sodium 142 mmol/L (136-145)
[2024-04-23 04:22] LABS: Bilirubin, Total 0.3 mg/dL (0.2-1.0); Total Protein 8.1 g/dL (5.7-8.2)
[2024-04-23 04:31] LABS: Alanine Aminotransferase 70 U/L (7-40); Alkaline Phosphatase 266 U/L (46-116); Aspartate Aminotransferase 115 U/L (13-40); Blood Urea Nitrogen 28 mg/dL (9-23); Carbon Dioxide 20 mmol/L (20-31); Chloride 111 mmol/L (98-107)
--- NOTE | 2024-04-23 05:46 | DVH ---
CHEST RADIOGRAPH Indication: Pneumonia Technique: Single frontal view of the chest was obtained Comparison: XY CHEST XRAY 1 VIEW on DOS: 04/22/24 FINDINGS: Lines and Tubes: The endotracheal tube terminates 5.5 cm above the plac[place]. Right central venous rossy ter terminates in the superior cavoatrial junction. The endotracheal tube terminates 3.1 cm above the placido. The enteric tube terminates in the stomach. Lungs: No focal consolidation. Pleura: No effusion. No pneumothorax. Cardiomediastinal contours: Unremarkable Bones: No acute osseous abnormality. IMPRESSION: 1. Stable position of the support lines and tubes. 2. No acute cardiopulmonary disease.
[2024-04-23] MEDS: NOREPINEPHRINE 8 MG/250ML KIT 250 ML IV SCH (15:00)
--- NOTE | 2024-04-23 16:25 | DVHPNRES ---
Progress Note Date Seen: Apr 23, 2024 Resident Creating Document: SOLEDAD LUU SHEELA Has the PT tested + for MRSA If YES, has PT been informed?: Yes Medical Necessity Reason Pt with a Central, PICC or Fol: Yes The following are medically ne: Hercules Catheter Reason for hercules catheter: Strict I&O Subjective Review of Systems Patient seen and examined at the bedside. Patient is sedated and on mechanical ventilation could not take ROS. Objective vital signs Vital Sign Date Time Temp Pulse Resp B/P (MAP) Pulse Ox O2 Delivery O2 Flow Rate FiO2 04/23/24 16:16 71 18 102/52 (69) 99 30 04/23/24 14:45 98.6 209.5 04/23/24 14:00 Mechanical Ventilator+ Total Intake and Output 04/22/24 04/22/24 04/23/24 15:00 23:00 07:00 Intake Total 353.75 ml 1002.50 ml 848.75 ml Output Total 700 ml 1200 ml Balance 353.75 ml 302.50 ml -351.25 ml medications Current Medications Medications Dose Ordered Sig/Moni Route Start Time Stop Time Status Last Admin Dose Admin Diagnostic Test (Pha) 1 strip Q6HR 04/12/24 12:00 04/23/24 11:50 1 STRIP Dextrose 50 ml UD PRN IV 04/12/24 11:30 Diagnostic Test (Pha) 1 strip Q6HR 04/12/24 12:00 UNV Insulin Human Regular Q6HR SC 04/12/24 12:00 UNV Dextrose 50 ml UD PRN IV 04/12/24 11:30 UNV Enoxaparin Sodium 30 mg DAILY SC 04/13/24 10:00 UNV Enoxaparin Sodium 40 mg DAILY SC 04/13/24 10:00 04/23/24 10:36 40 MG Pantoprazole Sodium 40 mg DAILY IV 04/14/24 10:00 04/23/24 10:35 40 MG Acetaminophen 650 mg Q6HP PRN GT 04/15/24 08:15 04/21/24 11:52 650 MG Enteral Nutritional Formula 1,000 ml 50 GT 04/15/24 16:45 04/23/24 10:39 1,000 ML Midazolam HCl 50 ml @ 1 mls/hr Q24H IV 04/16/24 18:45 04/20/24 12:42 7 MLS/HR Fentanyl Citrate 250 ml @ 2.5 mls/hr Q24H IV 04/17/24 09:00 04/20/24 13:14 17.5 MLS/HR Vancomycin HCl 0 ml @ 0 mls/hr UD IV 04/17/24 13:45 Purified Water 100 ml Q6HR NG 04/18/24 12:00 04/23/24 12:29 100 ML Vasopressin 20 units/Sodium Chloride 100 ml @ 9 mls/hr Q11H7M IV 04/20/24 19:45 Desmopressin Acetate 2 mcg DAILY IV 04/24/24 10:00 Norepinephrine Bitartrate 250 ml @ 3.75 mls/hr Q24H IV 04/23/24 15:00 Vancomycin HCl 200 ml @ 200 mls/hr Q12H IV 04/23/24 21:00 Examination General Appearance: Patient is sedated and on mechanical ventilation with RASS score -5 (unresponsive to the pain stimuli) HEENT: Pupils are dilated, fixed and not reactive to the light Respiratory: Clear to auscultation, Normal air movement Cardiovascular: Regular rate, Normal S1, Normal S2, No murmurs, no chest wall tenderness Abdominal: Normal bowel sounds, Soft, No tenderness, No hepatospenomegaly, No masses Extremities: No clubbing, No cyanosis, No edema, Normal pulses, No tenderness/swelling Skin: No rashes, No breakdown, No significant lesion laboratory and microbiology Laboratory Tests 04/23/24 03:20 Test 04/23/24 03:20 Range/Units Serum Glucose 98 74-106 mg/dL Microbiology Date/Time Source Procedure Growth Status 04/19/24 17:46 Blood Blood Culture - Preliminary NO GROWTH AFTER 72 HOURS OF INCUBATION. Resulted 04/15/24 06:00 Sputum Gram Stain - Final Complete 04/15/24 06:00 Respiratory Culture - Final Methicillin Resistant S.aureus Complete 04/15/24 05:30 Urine - Catheterized Urine Culture - Final Complete 04/13/24 01:30 Nose MRSA Screen - Final Complete Labs and/or images reviewed: Labs reviewed by me, Image(s) reviewed by me Problem List/Assessment/Plan Problem List/Assessment/Plan NEURO: Acute metabolic encephalopathy likely due to sepsis/anoxic brain injury Patient is sedated on mechanical ventilation with a setting of (VT 500, RR 16, peep 5, FiO2 30%) Cerebral edema, likely due to cardiac arrest Anoxic brain injury, likely due to cardiac arrest RASS score is -5(unresponsive to pain stimuli), pupils are dilated, fixed and nonreactive to the light Head CT scan and brain MRI shows cerebral edema with effacement of sulci CARDIOVASCULAR: Status post cardiac arrest (likely due to fentanyl overdose), return to spontaneous circulation Non ST-elevation [place], likely due to cardiac arrest Dilated cardiomyopathy likely due to drug abuse(likely amphetamine) BNP is raised at 4674 Cardiology recommended conservative management Echocardiogram shows biventricular dilatation with ejection fraction 15% Patient is maintaining blood pressure without pressor PULMONARY: Acute hypoxic respiratory failure, likely due to pneumonia/cerebral edema leading to respiratory center suppression Septic shock likely due to pneumonia/UTI Pneumonia likely due to Gram-positive Gram-negative Patient is sedated on mechanical ventilation with a setting of (VT 500, RR 18, peep 5, FiO2 30%) ABGs shows respiratory acidosis, respiratory rate increased from 16 to 18 Last night blood pressure dropped, started back Levophed Blood culture from 04/17/2024 shows MRSA sensitive to vancomycin Repeat blood culture, after 48 hours shows no growth ABGs showed respiratory alkalosis with metabolic compensation, pH 7.43, pCO2 929.3, PO2 114, HC03 19.4 Continue vancomycin GI: Transaminitis, likely ischemic secondary to cardiac arrest RENAL: JEISON, likely hemodynamically mediated, improved UTI, unspecified location, completed course of Zosyn(given for 7 days) Hyperchloremia Hypokalemia, improved Hypernatremia, 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 Purified water 100 mL q.6 hours LINES/DRAINS/ACCESS: * ETT: Intubated on 04/12/2024 * IV access: Right upper limb midline, placed on 04/14/24 Right radial arterial line, placed on 04/17/24 Right internal jugular CVC, placed on 04/17/24 Right upper limb peripheral line, placed on 04/12/2024 * Transurethral Hercules catheter Placed on 04/14/2020 * Drips Levophed 8 Polysubstance drug abuser UDS is positive for the fentanyl, amphetamine and cannabinoids DIET: OG tube: Jevity 50 mL/hour DVT prophylaxis: Lovenox 40 GI ppx: Protonix 40 CODE STATUS: Currently full code Case discussed in detail with the mother on phone. 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 The mother lives on the [facility], wants to visit the patient before taking any decision regarding goal of care. She is supposed to visit the patient on Friday evening. Critical time spent more than 40 minutes, including patient care, chart review and updating the family. excluding any procedures. Case discussed with Dr. Langley Plan discussed with: Patient (Mother) My Orders My Orders Orders - SOLEDAD LUU RESDIJORDAN Procedure Category Date Status Time Chest Xray 1 View XY 04/23/24 Resulted 04:00 Abg W/ Co-Ox RT 04/23/24 Logged 04:00 Desmopressin PHA 04/24/24 In Process Injection (Ddavp 10:00 Complete Blood Count LAB 04/24/24 Verified 04:00 Comprehensive LAB 04/24/24 Verified Metabolic Panel 04:00 Chest Xray 1 View XY 04/24/24 Logged 04:00 Abg W/ Co-Ox RT 04/24/24 Logged 04:00 Dietary Evaluation Review Comments: 1) If GI is accessible consider Jevity 1.2 @ 50 ml/hr x 24 hrs goal rate as tolerated 2) If pt remains NPO >7 days consider TPN to meet a least 75% of estimated needs 3) Advance pt diet when medically feasible to a Cardiac diet 4) Continue current plan of care Expected Outcomes/Goals: 1) Pt to receive nutrition support within 7 days of NPO status 2) Pt diet to advance 3) F/.U in 2-3 days Date of Service: Apr 23, 2024 Billing Provider: MARIA EUGENIA LANGLEY MD Common Visit Codes: [id number] CARE 30-74 MIN SOLEDAD LUU RESDIENT Apr 23, 2024 16:25 MARIA EUGENIA LANGLEY MD Apr 30, 2024 13:09
[2024-04-23] MEDS: VANCOMYCIN 1GM/250ML KIT 200 ML IV SCH (20:37)
[2024-04-24] VITALS (112 sets, daily range): BP systolic 63–170; BP diastolic 34–114; PULSE 64–91; RESP 14–18; TEMP 97.2–99.7; O2SAT 96–99
[2024-04-24 03:47] LABS: Basophils # (auto) 0.1 10 ^3/uL (0-0.2); Basophils % (auto) 0.3 % (0.0-2.0); Eosinophils # (auto) 0.3 10 ^3/uL (0-0.8); Eosinophils % (auto) 1.5 % (0.0-7.0); Hematocrit 29.3 % (41.0-53.0); Lymphocytes # (auto) 1.1 10 ^3/uL (0.4-5.4); Neutrophils % (auto) 82.7 % (37.0-80.0)
[2024-04-24 03:51] LABS: Hemoglobin 9.6 g/dL (13.5-17.5); Lymphocytes % (auto) 5.6 % (10.0-50.0); Mean Corpuscular Hemoglobin 30.2 pg (28.0-32.0); Mean Corpuscular Hgb Conc. 32.6 g/dL (32.0-36.0); Mean Corpuscular Volume 92.5 fL (80.0-100.0); Monocytes % (auto) 9.9 % (0.0-12.0); Neutrophils # (auto) 16.6 10 ^3/uL (1.6-8.6); Platelet Count (auto) 607 10^3/uL (140-450); Red Blood Cells 3.17 10^6/uL (4.5-5.90); Red Cell Distribution Width 14.3 % (11.8-14.3)
[2024-04-24 04:12] LABS: Albumin 3.8 g/dL (3.2-4.8); Anion Gap 12 (5-15); BUN/Creatinine Ratio 31.6 (10.0-20.0); Bilirubin, Total 0.4 mg/dL (0.2-1.0); Carbon Dioxide 21 mmol/L (20-31); Potassium 4.6 mmol/L (3.5-5.1); Sodium 142 mmol/L (136-145)
[2024-04-24 04:13] LABS: Alanine Aminotransferase 72 U/L (7-40); Alkaline Phosphatase 306 U/L (46-116); Aspartate Aminotransferase 113 U/L (13-40); Blood Urea Nitrogen 31 mg/dL (9-23); Chloride 109 mmol/L (98-107); Glucose 133 mg/dL (74-106); Total Protein 8.3 g/dL (5.7-8.2)
--- NOTE | 2024-04-24 05:37 | DVH ---
CHEST RADIOGRAPH Indication: Pneumonia Technique: Single frontal view of the chest was obtained Comparison: XY CHEST XRAY 1 VIEW on DOS: 04/23/24, XY CHEST XRAY 1 VIEW on DOS: 04/22/24, XY CHEST XR AY 1 VIEW on DOS: 04/21/24 IMPRESSION: Heart appears stable in size. The lungs appear clear without focal airspace opacity, effusion, or pn eumothorax. Support lines and tubes appear unchanged in satisfactory position.
[2024-04-24 07:14] LABS: Base Excess -4.1 mmol/L (-2.0-3.0)
[2024-04-24] MEDS: DESMOPRESSIN ACET 4 MCG/1 ML AMPULE IV SCH (10:41)
--- NOTE | 2024-04-24 12:27 | DVHPN2 ---
Reviewed: Care Plan, H&P, Labs, Medications, Previous Orders, Radiology Changes from previous H/P or p: No Changes Eyes: No Pain, No Vision change, No Conjunctivae inflammation, No Eyelid inflammation, No Other, No Redness ENT: No Ear pain, No Ear discharge, No Nose pain, No Nose discharge, No Nose congestion, No Mouth pain, No Mouth swelling, No Throat pain, No Throat swelling, No Other Cardiovascular: No Chest Pain, No Palpitations, No Orthopnea, No Paroxysmal Noc. Dyspnea, No Edema, No Lt Headedness, No Other Respiratory: No Cough, No Dry; Shortness of breath, SOB with excertion; No Wheezing, No Hemoptysis, No Pleuritic Pain, No Sputum, No Other Gastrointestinal: No Nausea, No Vomiting, No Abdominal Pain, No Diarrhea, No Constipation, No Melena, No Hematochezia, No Other Genitourinary: No Dysuria, No Frequency, No Incontinence, No Hematuria, No Retention, No Other Musculoskeletal: No other, No neck pain, No shoulder pain, No arm pain, No back pain, No hand pain, No leg pain, No foot pain Skin: No Rash, No Lesions, No Jaundice, No Bruising, No Other Objective Vitals Vital Signs Date Time Temp Pulse Resp B/P (MAP) Pulse Ox O2 Delivery O2 Flow Rate FiO2 04/24/24 11:44 73 18 120/78 (92) 97 30 04/24/24 10:52 Mechanical Ventilator+ 04/24/24 10:30 99.0 210.2 Intake/Output Intake and Output 04/24/24 07:00 Intake Total 1628.600 ml Output Total 1225 ml Balance 403.600 ml Intake Oral 200 ml IV Total 828.600 ml Tube Feeding 600 ml Output Urine Total 1225 ml Stool Total 0 ml Medications Current Medications Medications Dose Ordered Sig/Moni Route Start Time Stop Time Status Last Admin Dose Admin Diagnostic Test (Pha) 1 strip Q6HR 04/12/24 12:00 04/24/24 12:21 1 STRIP Dextrose 50 ml UD PRN IV 04/12/24 11:30 Diagnostic Test (Pha) 1 strip Q6HR 04/12/24 12:00 UNV Insulin Human Regular Q6HR SC 04/12/24 12:00 UNV Dextrose 50 ml UD PRN IV 04/12/24 11:30 UNV Enoxaparin Sodium 30 mg DAILY SC 04/13/24 10:00 UNV Enoxaparin Sodium 40 mg DAILY SC 04/13/24 10:00 04/24/24 10:32 40 MG Pantoprazole Sodium 40 mg DAILY IV 04/14/24 10:00 04/24/24 10:31 40 MG Acetaminophen 650 mg Q6HP PRN GT 04/15/24 08:15 04/21/24 11:52 650 MG Enteral Nutritional Formula 1,000 ml 50 GT 04/15/24 16:45 04/23/24 10:39 1,000 ML Midazolam HCl 50 ml @ 1 mls/hr Q24H IV 04/16/24 18:45 04/20/24 12:42 7 MLS/HR Fentanyl Citrate 250 ml @ 2.5 mls/hr Q24H IV 04/17/24 09:00 04/20/24 13:14 17.5 MLS/HR Vancomycin HCl 0 ml @ 0 mls/hr UD IV 04/17/24 13:45 Purified Water 100 ml Q6HR NG 04/18/24 12:00 04/24/24 12:21 100 ML Vasopressin 20 units/Sodium Chloride 100 ml @ 9 mls/hr Q11H7M IV 04/20/24 19:45 Desmopressin Acetate 2 mcg DAILY IV 04/24/24 10:00 04/24/24 10:41 2 MCG Norepinephrine Bitartrate 250 ml @ 3.75 mls/hr Q24H IV 04/23/24 15:00 04/24/24 03:49 18.75 MLS/HR Vancomycin HCl 200 ml @ 200 mls/hr Q12H IV 04/23/24 21:00 04/24/24 08:49 200 MLS/HR Laboratory Results Laboratory Tests 04/24/24 03:24 Chemistry Test 04/24/24 03:24 Albumin 3.8 g/dL (3.2-4.8) Calcium Level 10.0 mg/dL (8.7-10.4) Total Protein 8.3 g/dL (5.7-8.2) H LFT Test 04/24/24 03:24 Alanine Aminotransferase (ALT) 72 U/L (7-40) H Alkaline Phosphatase 306 U/L (46-116) H Aspartate Amino Transferase (AST) 113 U/L (13-40) H Total Bilirubin 0.4 mg/dL (0.2-1.0) Urinalysis Test 04/12/24 03:49 04/20/24 16:23 Urine Color Light-orange (Yellow) Urine Clarity Ex.turbid (Clear) Urine pH 5.5 (5.0-9.0) Urine Specific [place] 1.031 (1.001-1.035) Urine Protein 2+ (Negative) H Urine Ketones Trace (Negative) Urine Blood 3+ /uL (Negative) H Urine Nitrite Negative (Negative) Urine Bilirubin Negative (Negative) Urine Urobilinogen 3 mg/dL (Negative) H Urine Leukocyte Esterase 3+ /uL (Negative) Urine RBC 196 /hpf (0 - 3) Urine WBC 1295 /hpf (0 - 3) Urine Squamous Epithelial Cells Few /hpf (<5) Urine Bacteria Few /hpf (None Seen) H Urine Hyaline Casts Few /lpf (0 - 2) Urine Mucus Few (None Seen) Urine Glucose Normal mg/dL (Normal) Urine Osmolality 838 mOsm/kg Urine Sodium 143 mmol/L (40-220) Blood Gas Results Test 04/24/24 07:01 Arterial Blood pH 7.358 (7.350-7.450) FiO2 % 30.0 Microbiology Microbiology Date/Time Source Procedure Growth Status 04/19/24 17:46 Blood Blood Culture - Preliminary NO GROWTH AFTER 72 HOURS OF INCUBATION. Resulted 04/15/24 06:00 Sputum Gram Stain - Final Complete 04/15/24 06:00 Respiratory Culture - Final Methicillin Resistant S.aureus Complete 04/15/24 05:30 Urine - Catheterized Urine Culture - Final Complete 04/13/24 01:30 Nose MRSA Screen - Final Complete Labs and/or images reviewed: Labs reviewed by me, Image(s) reviewed by me Assessment/Plan Assessment/Plan Covering for resident Acute hypoxic respiratory failure status post intubated on 30 percent FiO2, Dr. High following On mechanical ventilator Drug overdose Status post cardiac arrest MRSA Bacteremia: Continue vancomycin Return of spontaneous circulation Metabolic acidosis Lactic acidosis Elevated troponin Acute kidney injury Seen In ICU time spent 70 minutes Condition guarded Plan discussed with: Patient Date of Service: Apr 24, 2024 Billing Provider: MICHAEL FOLEY MD Common Visit Codes: [id number] CARE 30-74 MIN MICHAEL FOLEY MD Apr 24, 2024 12:27
--- NOTE | 2024-04-24 23:16 | DVHPN2 ---
Progress Note - Dictate Date Seen: Apr 24, 2024 Has the PT tested + for MRSA If YES, has PT been informed?: Yes Medical Necessity Reason Pt with a Central, PICC or Fol: Yes The following are medically ne: Hercules Catheter Reason for hercules catheter: Strict I&O Subjective Patient seen and examined at bedside. Intubated on mechanical ventilator. Overnight events reviewed. vital signs Vital Sign Date Time Temp Pulse Resp B/P (MAP) Pulse Ox O2 Delivery O2 Flow Rate FiO2 04/24/24 22:15 97.2 64 18 95/52 (66) 97 207.0 108/55 (72) 04/24/24 22:00 Mechanical Ventilator+ 30 30 Total Intake and Output 04/23/24 04/23/24 04/24/24 15:00 23:00 07:00 Intake Total 336.875 ml 341.725 ml 950.00 ml Output Total 450 ml 300 ml 475 ml Balance -113.125 ml 41.725 ml 475.00 ml medications Current Medications Medications Dose Ordered Sig/Moni Route Start Time Stop Time Status Last Admin Dose Admin Diagnostic Test (Pha) 1 strip Q6HR 04/12/24 12:00 04/24/24 17:53 1 STRIP Dextrose 50 ml UD PRN IV 04/12/24 11:30 Diagnostic Test (Pha) 1 strip Q6HR 04/12/24 12:00 UNV Insulin Human Regular Q6HR SC 04/12/24 12:00 UNV Dextrose 50 ml UD PRN IV 04/12/24 11:30 UNV Enoxaparin Sodium 30 mg DAILY SC 04/13/24 10:00 UNV Pantoprazole Sodium 40 mg DAILY IV 04/14/24 10:00 04/24/24 10:31 40 MG Acetaminophen 650 mg Q6HP PRN GT 04/15/24 08:15 04/21/24 11:52 650 MG Enteral Nutritional Formula 1,000 ml 50 GT 04/15/24 16:45 04/24/24 12:45 1,000 ML Midazolam HCl 50 ml @ 1 mls/hr Q24H IV 04/16/24 18:45 04/20/24 12:42 7 MLS/HR Fentanyl Citrate 250 ml @ 2.5 mls/hr Q24H IV 04/17/24 09:00 04/20/24 13:14 17.5 MLS/HR Vancomycin HCl 0 ml @ 0 mls/hr UD IV 04/17/24 13:45 Purified Water 100 ml Q6HR NG 04/18/24 12:00 04/24/24 17:53 100 ML Vasopressin 20 units/Sodium Chloride 100 ml @ 9 mls/hr Q11H7M IV 04/20/24 19:45 Desmopressin Acetate 2 mcg DAILY IV 04/24/24 10:00 04/24/24 10:41 2 MCG Norepinephrine Bitartrate 250 ml @ 3.75 mls/hr Q24H IV 04/23/24 15:00 04/24/24 19:01 11.25 MLS/HR Vancomycin HCl 200 ml @ 200 mls/hr Q12H IV 04/23/24 21:00 04/24/24 21:07 200 MLS/HR objective Gen.: Patient lying in bed in medical ICU. Intubated on mechanical ventilator. Head: Normocephalic, atraumatic. Eyes: PERRLA. Ears: Normal external anatomy. Throat: Endotracheal tube and orogastric tube in place. Neck: Supple, trachea midline. Chest: Transmitted breath sounds bilaterally. Decreased air entry bilaterally. No wheezing. Bibasilar crackles. Cardiovascular: Positive S1, positive S2. Regular rate and rhythm. Abdomen: Positive bowel sounds in all 4 quadrants. Soft, nontender, nondistended. : Hercules in place. Normal external genitalia. Rectal: Deferred. Skin: Warm, dry. Intact. Extremities: 2+ radial pulses bilaterally. No lower extremity edema. Neuro: Off sedation. laboratory and microbiology Laboratory Tests 04/24/24 03:24 Test 04/24/24 03:24 Range/Units Serum Glucose 133 H 74-106 mg/dL Assessment/Plan Impression: Acute hypoxic respiratory failure On mechanical ventilator Drug overdose Status post cardiac arrest Return of spontaneous circulation Metabolic acidosis Lactic acidosis Elevated troponin Acute kidney injury Events: Remains on vent support Vent settings; assist control with respiratory rate of 18, tidal volume 500, PEEP of 5, FiO2 of 30%. CXR demonstrates no acute opacities. No pneumothorax. Devices in place. Brain MRI revealed cerebral edema. Follow up blood cultures - no growth x 72 hours ABG reviewed, compensated. On pressors for hemodynamic support On Levophed 6 mcg/min Titrate to keep mean arterial pressure greater than 65 mmHg. Improved pressor requirements. CT head notable for findings of anoxic brain injury, diffuse cerebral edema. Off sedation Recommend to hyperventilate given cerebral edema. Monitor WBC count, 20 K. Continue antibiotics, vancomycin JEISON, increased creatinine. Off Lasix Monitor renal function. Monitor electrolytes. Supplement as necessary. Free water d/t hypernatremia. Continue IV fluids w/ NS at 150 ml/hr. Monitor lactic acid. Tube feeds for nutritional support Overall poor prognosis due to anoxic brain injury. Awaiting mother for discussion on goals of care. Labs and imaging reviewed. Rest of plan as noted below. Plan: s/p intubation on mechanical ventilator Urine toxicology was positive for fentanyl and amphetamines. CT head was negative. CXR image and report reviewed. Devices in place. Bilateral airspace opacities. ABG reviewed. Acidemia due to metabolic acidosis. Repeat ABG in the PM compensated. Vent settings; assist control with respiratory rate of 18, tidal volume 500, PEEP of 5, FiO2 of 30%. Titrate FIO2 to keep O2 saturation above 92%. VAP bundle Daily ABG and CXR while intubated. Off sedation Pressors for hemodynamic support. Titrate to keep MAP above 65 mmHg/SBP above 90 mmHg. S/p right radial arterial line placement. S/p central line placement. Empiric antibiotics. F/u cultures. Monitor renal function due to Acute kidney injury. Monitor electrolytes. Supplement as necessary. Monitor ins and outs Protonix for GI prophylaxis Lovenox for DVT prophylaxis. Poor prognosis due to anoxic brain injury. Condition: Critical Prognosis: Poor given multiple comorbidities. Rest of plan per hospitalist and other consultants. A total of 35 minutes of critical care time was spent reviewing the patient record, examining the patient, making a diagnostic and therapeutic plan, discussing this plan with the medical personnel, following up on diagnostic studies and following the patient for clinical stability excluding any and all procedures. At least 50% of this time was spent in direct, [id number] contact. Thank you Dr. Vazquez for allowing me to participate in this patient's care. Further recommendations will depend on patient's clinical course. Please do not hesitate to contact me if you have any questions or concerns. This medical document was created using an electronic medical record system with [email or web address] system. Although this document has been carefully reviewed, there may still be some phonetic and typographical errors. These areas are purely typographical due to imperfections of the software programs, and do not reflect any compromise in the patient's medical care. Dietary Evaluation Review Comments: 1) If GI is accessible consider Jevity 1.2 @ 50 ml/hr x 24 hrs goal rate as tolerated 2) If pt remains NPO >7 days consider TPN to meet a least 75% of estimated needs 3) Advance pt diet when medically feasible to a Cardiac diet 4) Continue current plan of care Expected Outcomes/Goals: 1) Pt to receive nutrition support within 7 days of NPO status 2) Pt diet to advance 3) F/.U in 2-3 days Plan discussed with: Other (SETH Martin) Critical Care Time(min): 35 MARISEL AGUILA MD Apr 24, 2024 23:16
[2024-04-25] VITALS (84 sets, daily range): BP systolic 88–129; BP diastolic 37–82; PULSE 61–81; RESP 18; TEMP 96.3–100.6; O2SAT 62–98
[2024-04-25 04:05] LABS: Basophils # (auto) 0.1 10 ^3/uL (0-0.2); Basophils % (auto) 0.3 % (0.0-2.0); Eosinophils # (auto) 0.3 10 ^3/uL (0-0.8); Lymphocytes # (auto) 1.1 10 ^3/uL (0.4-5.4)
[2024-04-25 04:08] LABS: Hematocrit 28.3 % (41.0-53.0); Hemoglobin 9.5 g/dL (13.5-17.5); Lymphocytes % (auto) 6.2 % (10.0-50.0); Mean Corpuscular Hemoglobin 30.3 pg (28.0-32.0); Mean Corpuscular Hgb Conc. 33.4 g/dL (32.0-36.0); Mean Corpuscular Volume 90.6 fL (80.0-100.0); Monocytes # (auto) 1.8 10 ^3/uL (0-1.3); Monocytes % (auto) 10.7 % (0.0-12.0); Neutrophils # (auto) 13.9 10 ^3/uL (1.6-8.6); Neutrophils % (auto) 80.8 % (37.0-80.0); Platelet Count (auto) 582 10^3/uL (140-450); Red Blood Cells 3.12 10^6/uL (4.5-5.90); Red Cell Distribution Width 14.4 % (11.8-14.3); White Blood Cell 17.2 10^3/uL (4.4-10.8)
[2024-04-25 07:39] LABS: Base Excess -2.2 mmol/L (-2.0-3.0)
--- NOTE | 2024-04-25 07:50 | DVH ---
XY CHEST PORTABLE, HISTORY: MECHANICALLY VENTILATED, ROUTINE CHECK COMPARISON: XY CHEST XRAY 1 VIEW on DOS: 04/24/24, XY CHEST XRAY 1 VIEW on DOS: 04/23/24, XY CHEST XR AY 1 VIEW on DOS: 04/22/24 XY CHEST XRAY 1 VIEW on DOS: 04/24/24, XY CHEST XRAY 1 VIEW on DOS: 04/23/24, XY CHEST XRAY 1 VIEW on DOS: 04/22/24 TECHNICAL DATA: 1 view of the chest was obtained. FINDINGS: Lines and tubes: ET in the mid thoracic trachea. CVC in the RA. NG in the stomach. Cardiomediastinal silhouette: normal Pulmonary vasculature: normal Lung expansion: normal Lung airspace: normal Lung interstitium: normal Pleura: normal Pneumothorax: no Bones: Unremarkable Other: no IMPRESSION: Stable lines and tubes. Similar lung aeration.
--- NOTE | 2024-04-25 08:42 | DVHPN2 ---
Reviewed: Care Plan, H&P, Labs, Medications, Previous Orders, Radiology Changes from previous H/P or p: No Changes Eyes: No Pain, No Vision change, No Conjunctivae inflammation, No Eyelid inflammation, No Other, No Redness ENT: No Ear pain, No Ear discharge, No Nose pain, No Nose discharge, No Nose congestion, No Mouth pain, No Mouth swelling, No Throat pain, No Throat swelling, No Other Cardiovascular: No Chest Pain, No Palpitations, No Orthopnea, No Paroxysmal Noc. Dyspnea, No Edema, No Lt Headedness, No Other Respiratory: No Cough, No Dry; Shortness of breath, SOB with excertion; No Wheezing, No Hemoptysis, No Pleuritic Pain, No Sputum, No Other Gastrointestinal: No Nausea, No Vomiting, No Abdominal Pain, No Diarrhea, No Constipation, No Melena, No Hematochezia, No Other Genitourinary: No Dysuria, No Frequency, No Incontinence, No Hematuria, No Retention, No Other Musculoskeletal: No other, No neck pain, No shoulder pain, No arm pain, No back pain, No hand pain, No leg pain, No foot pain Skin: No Rash, No Lesions, No Jaundice, No Bruising, No Other Objective Vitals Vital Signs Date Time Temp Pulse Resp B/P (MAP) Pulse Ox O2 Delivery O2 Flow Rate FiO2 04/25/24 07:55 68 18 96/52 (67) 97 30 04/25/24 07:15 98.8 209.8 04/25/24 06:00 Mechanical Ventilator+ Intake/Output Intake and Output 04/25/24 07:00 Intake Total 1440.7775 ml Output Total 1275 ml Balance 165.7775 ml Intake Oral 200 ml IV Total 710.7775 ml Tube Feeding 530 ml Output Urine Total 1275 ml Stool Total 0 ml Medications Current Medications Medications Dose Ordered Sig/Moni Route Start Time Stop Time Status Last Admin Dose Admin Diagnostic Test (Pha) 1 strip Q6HR 04/12/24 12:00 04/25/24 05:25 1 STRIP Dextrose 50 ml UD PRN IV 04/12/24 11:30 Diagnostic Test (Pha) 1 strip Q6HR 04/12/24 12:00 UNV Insulin Human Regular Q6HR SC 04/12/24 12:00 UNV Dextrose 50 ml UD PRN IV 04/12/24 11:30 UNV Enoxaparin Sodium 30 mg DAILY SC 04/13/24 10:00 UNV Pantoprazole Sodium 40 mg DAILY IV 04/14/24 10:00 04/24/24 10:31 40 MG Acetaminophen 650 mg Q6HP PRN GT 04/15/24 08:15 04/21/24 11:52 650 MG Enteral Nutritional Formula 1,000 ml 50 GT 04/15/24 16:45 04/25/24 05:25 1,000 ML Midazolam HCl 50 ml @ 1 mls/hr Q24H IV 04/16/24 18:45 04/20/24 12:42 7 MLS/HR Fentanyl Citrate 250 ml @ 2.5 mls/hr Q24H IV 04/17/24 09:00 04/20/24 13:14 17.5 MLS/HR Vancomycin HCl 0 ml @ 0 mls/hr UD IV 04/17/24 13:45 Purified Water 100 ml Q6HR NG 04/18/24 12:00 04/25/24 05:25 100 ML Vasopressin 20 units/Sodium Chloride 100 ml @ 9 mls/hr Q11H7M IV 04/20/24 19:45 Desmopressin Acetate 2 mcg DAILY IV 04/24/24 10:00 04/24/24 10:41 2 MCG Norepinephrine Bitartrate 250 ml @ 3.75 mls/hr Q24H IV 04/23/24 15:00 04/24/24 19:01 11.25 MLS/HR Vancomycin HCl 200 ml @ 200 mls/hr Q12H IV 04/23/24 21:00 04/24/24 21:07 200 MLS/HR Laboratory Results Laboratory Tests 04/24/24 03:24 04/25/24 03:27 Urinalysis Test 04/12/24 03:49 04/20/24 16:23 Urine Color Light-orange (Yellow) Urine Clarity Ex.turbid (Clear) Urine pH 5.5 (5.0-9.0) Urine Specific [place] 1.031 (1.001-1.035) Urine Protein 2+ (Negative) H Urine Ketones Trace (Negative) Urine Blood 3+ /uL (Negative) H Urine Nitrite Negative (Negative) Urine Bilirubin Negative (Negative) Urine Urobilinogen 3 mg/dL (Negative) H Urine Leukocyte Esterase 3+ /uL (Negative) Urine RBC 196 /hpf (0 - 3) Urine WBC 1295 /hpf (0 - 3) Urine Squamous Epithelial Cells Few /hpf (<5) Urine Bacteria Few /hpf (None Seen) H Urine Hyaline Casts Few /lpf (0 - 2) Urine Mucus Few (None Seen) Urine Glucose Normal mg/dL (Normal) Urine Osmolality 838 mOsm/kg Urine Sodium 143 mmol/L (40-220) Blood Gas Results Test 04/25/24 07:29 Arterial Blood pH 7.377 (7.350-7.450) FiO2 % 30.0 Microbiology Microbiology Date/Time Source Procedure Growth Status 04/19/24 17:46 Blood Blood Culture - Final NO GROWTH AFTER 5 DAYS OF INCUBATION. Complete 04/15/24 06:00 Sputum Gram Stain - Final Complete 04/15/24 06:00 Respiratory Culture - Final Methicillin Resistant S.aureus Complete 04/15/24 05:30 Urine - Catheterized Urine Culture - Final Complete 04/13/24 01:30 Nose MRSA Screen - Final Complete Labs and/or images reviewed: Labs reviewed by me, Image(s) reviewed by me Assessment/Plan Assessment/Plan Covering for resident Acute hypoxic respiratory failure status post intubated on 30 percent FiO2, Dr. High following On mechanical ventilator Drug overdose Status post cardiac arrest MRSA Bacteremia: Continue vancomycin Return of spontaneous circulation Metabolic acidosis Lactic acidosis Elevated troponin Acute kidney injury Seen In ICU time spent 75 minutes Condition guarded Plan discussed with: Patient Date of Service: Apr 25, 2024 Billing Provider: MICHAEL FOLEY MD Common Visit Codes: 77599-[id number] CARE 30-74 MIN MICHAEL FOLEY MD Apr 25, 2024 08:42
[2024-04-25] MEDS: VANCOMYCIN 750mg/150ml 150 ML IV SCH (11:08)
--- NOTE | 2024-04-25 22:58 | DVHPN2 ---
Progress Note - Dictate Date Seen: Apr 25, 2024 Has the PT tested + for MRSA If YES, has PT been informed?: Yes Medical Necessity Reason Pt with a Central, PICC or Fol: Yes The following are medically ne: Hercules Catheter Reason for hercules catheter: Strict I&O Subjective Patient seen and examined at bedside. Intubated on mechanical ventilator. Overnight events reviewed. vital signs Vital Sign Date Time Temp Pulse Resp B/P (MAP) Pulse Ox O2 Delivery O2 Flow Rate FiO2 04/25/24 22:45 96.3 63 18 99/47 (64) 98 205.3 121/55 (77) 04/25/24 22:24 Mechanical Ventilator+ 30 30 Total Intake and Output 04/24/24 04/24/24 04/25/24 15:00 23:00 07:00 Intake Total 428.9025 ml 401.25 ml 620.000 ml Output Total 550 ml 250 ml 475 ml Balance -121.0975 ml 151.25 ml 145.000 ml medications Current Medications Medications Dose Ordered Sig/Moni Route Start Time Stop Time Status Last Admin Dose Admin Diagnostic Test (Pha) 1 strip Q6HR 04/12/24 12:00 04/25/24 18:29 1 STRIP Dextrose 50 ml UD PRN IV 04/12/24 11:30 Diagnostic Test (Pha) 1 strip Q6HR 04/12/24 12:00 UNV Insulin Human Regular Q6HR SC 04/12/24 12:00 UNV Dextrose 50 ml UD PRN IV 04/12/24 11:30 UNV Enoxaparin Sodium 30 mg DAILY SC 04/13/24 10:00 UNV Pantoprazole Sodium 40 mg DAILY IV 04/14/24 10:00 04/25/24 11:07 40 MG Acetaminophen 650 mg Q6HP PRN GT 04/15/24 08:15 04/21/24 11:52 650 MG Enteral Nutritional Formula 1,000 ml 50 GT 04/15/24 16:45 04/25/24 05:25 1,000 ML Midazolam HCl 50 ml @ 1 mls/hr Q24H IV 04/16/24 18:45 04/20/24 12:42 7 MLS/HR Fentanyl Citrate 250 ml @ 2.5 mls/hr Q24H IV 04/17/24 09:00 04/20/24 13:14 17.5 MLS/HR Vancomycin HCl 0 ml @ 0 mls/hr UD IV 04/17/24 13:45 Purified Water 100 ml Q6HR NG 04/18/24 12:00 04/25/24 18:29 100 ML Vasopressin 20 units/Sodium Chloride 100 ml @ 9 mls/hr Q11H7M IV 04/20/24 19:45 Desmopressin Acetate 2 mcg DAILY IV 04/24/24 10:00 04/25/24 11:08 2 MCG Norepinephrine Bitartrate 250 ml @ 3.75 mls/hr Q24H IV 04/23/24 15:00 04/25/24 13:47 16.875 MLS/HR Vancomycin HCl 150 ml @ 150 mls/hr Q10H IV 04/25/24 11:00 04/25/24 21:29 150 MLS/HR objective Gen.: Patient lying in bed in medical ICU. Intubated on mechanical ventilator. Head: Normocephalic, atraumatic. Eyes: PERRLA. Ears: Normal external anatomy. Throat: Endotracheal tube and orogastric tube in place. Neck: Supple, trachea midline. Chest: Transmitted breath sounds bilaterally. Decreased air entry bilaterally. No wheezing. Bibasilar crackles. Cardiovascular: Positive S1, positive S2. Regular rate and rhythm. Abdomen: Positive bowel sounds in all 4 quadrants. Soft, nontender, nondistended. : Hercules in place. Normal external genitalia. Rectal: Deferred. Skin: Warm, dry. Intact. Extremities: 2+ radial pulses bilaterally. No lower extremity edema. Neuro: Off sedation. laboratory and microbiology Laboratory Tests 04/25/24 03:27 04/24/24 03:24 Test 04/24/24 03:24 Range/Units Serum Glucose 133 H 74-106 mg/dL Assessment/Plan Impression: Acute hypoxic respiratory failure On mechanical ventilator Drug overdose Status post cardiac arrest Return of spontaneous circulation Metabolic acidosis Lactic acidosis Elevated troponin Acute kidney injury Events: Remains on vent support Vent settings; assist control with respiratory rate of 18, tidal volume 500, PEEP of 5, FiO2 of 30%. CXR demonstrates no acute opacities. No pneumothorax. Devices in place. Brain MRI revealed cerebral edema. Follow up blood cultures - no growth x 5 days ABG reviewed, compensated. On pressors for hemodynamic support On Levophed 6 mcg/min Titrate to keep mean arterial pressure greater than [address] head notable for findings of anoxic brain injury, diffuse cerebral edema. Off sedation for several days - not following commands. Recommend to hyperventilate given cerebral edema. Monitor WBC count Continue antibiotics, vancomycin JEISON, increased creatinine. Off Lasix Monitor renal function. Monitor electrolytes. Supplement as necessary. Free water d/t hypernatremia. Continue IV fluids w/ NS at 150 ml/hr. Monitor lactic acid. Tube feeds for nutritional support Overall poor prognosis due to anoxic brain injury. Awaiting mother for discussion on goals of care. Labs and imaging reviewed. Rest of plan as noted below. Plan: s/p intubation on mechanical ventilator Urine toxicology was positive for fentanyl and amphetamines. CT head was negative. CXR image and report reviewed. Devices in place. Bilateral airspace opacities. ABG reviewed. Acidemia due to metabolic acidosis. Repeat ABG in the PM compensated. Vent settings; assist control with respiratory rate of 18, tidal volume 500, PEEP of 5, FiO2 of 30%. Titrate FIO2 to keep O2 saturation above 92%. VAP bundle Daily ABG and CXR while intubated. Off sedation Pressors for hemodynamic support. Titrate to keep MAP above 65 mmHg/SBP above 90 mmHg. S/p right radial arterial line placement. S/p central line placement. Empiric antibiotics. F/u cultures. Monitor renal function due to Acute kidney injury. Monitor electrolytes. Supplement as necessary. Monitor ins and outs Protonix for GI prophylaxis Lovenox for DVT prophylaxis. Poor prognosis due to anoxic brain injury. Condition: Critical Prognosis: Poor given multiple comorbidities. Rest of plan per hospitalist and other consultants. A total of 35 minutes of critical care time was spent reviewing the patient record, examining the patient, making a diagnostic and therapeutic plan, discussing this plan with the medical personnel, following up on diagnostic studies and following the patient for clinical stability excluding any and all procedures. At least 50% of this time was spent in direct, [id number] contact. Thank you Dr. Vazquez for allowing me to participate in this patient's care. Further recommendations will depend on patient's clinical course. Please do not hesitate to contact me if you have any questions or concerns. This medical document was created using an electronic medical record system with [employer] system. Although this document has been carefully reviewed, there may still be some phonetic and typographical errors. These areas are purely typographical due to imperfections of the software programs, and do not reflect any compromise in the patient's medical care. Dietary Evaluation Review Comments: 1) If GI is accessible consider Jevity 1.2 @ 50 ml/hr x 24 hrs goal rate as tolerated 2) If pt remains NPO >7 days consider TPN to meet a least 75% of estimated needs 3) Advance pt diet when medically feasible to a Cardiac diet 4) Continue current plan of care Expected Outcomes/Goals: 1) Pt to receive nutrition support within 7 days of NPO status 2) Pt diet to advance 3) F/.U in 2-3 days Plan discussed with: Other (SETH Miguel) Critical Care Time(min): 35 MARISEL AGUILA MD Apr 25, 2024 22:58
[2024-04-26] VITALS (76 sets, daily range): BP systolic 80–178; BP diastolic 38–96; PULSE 60–87; RESP 18; TEMP 97–98.1; O2SAT 93–99
[2024-04-26 03:57] LABS: Basophils # (auto) 0 10 ^3/uL (0-0.2); Eosinophils # (auto) 0.3 10 ^3/uL (0-0.8)
[2024-04-26 03:59] LABS: Basophils % (auto) 0.3 % (0.0-2.0); Eosinophils % (auto) 1.7 % (0.0-7.0); Hematocrit 27.1 % (41.0-53.0); Hemoglobin 8.9 g/dL (13.5-17.5); Lymphocytes # (auto) 1.1 10 ^3/uL (0.4-5.4); Lymphocytes % (auto) 7.1 % (10.0-50.0); Mean Corpuscular Hemoglobin 30.1 pg (28.0-32.0); Monocytes # (auto) 1.9 10 ^3/uL (0-1.3); Monocytes % (auto) 12.5 % (0.0-12.0); Neutrophils # (auto) 11.9 10 ^3/uL (1.6-8.6); Neutrophils % (auto) 78.4 % (37.0-80.0); Platelet Count (auto) 591 10^3/uL (140-450); Red Blood Cells 2.97 10^6/uL (4.5-5.90); Red Cell Distribution Width 14.7 % (11.8-14.3); White Blood Cell 15.1 10^3/uL (4.4-10.8)
[2024-04-26 04:03] LABS: Potassium 4.3 mmol/L (3.5-5.1); Sodium 142 mmol/L (136-145)
[2024-04-26 04:04] LABS: Anion Gap 13 (5-15)
[2024-04-26 04:05] LABS: Calcium 10.2 mg/dL (8.7-10.4)
[2024-04-26 04:09] LABS: BUN/Creatinine Ratio 43.8 (10.0-20.0)
[2024-04-26 04:10] LABS: Blood Urea Nitrogen 39 mg/dL (9-23); Carbon Dioxide 19 mmol/L (20-31); Chloride 110 mmol/L (98-107); Glucose 112 mg/dL (74-106)
--- NOTE | 2024-04-26 04:33 | DVH ---
CHEST RADIOGRAPH Indication: Intubated Technique: Single frontal view of the chest was obtained COMPARISON: XY CHEST PORTABLE on DOS: 04/25/24, XY CHEST XRAY 1 VIEW on DOS: 04/24/24, XY CHEST XRAY 1 VIEW on DOS: 04/23/24 FINDINGS: Lines and Tubes: Endotracheal tube, enteric catheter and right central venous catheter in satisfactor y position. Lungs: Clear Pleura: No effusion. No pneumothorax. Cardiomediastinal contours: Unremarkable Bones: Unremarkable IMPRESSION: Lines and tubes in satisfactory position. No significant interval change.
[2024-04-26] MEDS ORDERED: DESMOPRESSIN ACET 4 MCG/1 ML AMPULE IV SCH (06:30)
[2024-04-26 07:20] LABS: Base Excess -3.7 mmol/L (-2.0-3.0)
[2024-04-26] MEDS: LORazepam 2MG/ML-1ML VIAL IV PRN (16:36)
[2024-04-26] MEDS: MORPHINE SULFATE INJ 2 MG/ml SYRG IV PRN (16:41)
--- NOTE | 2024-04-26 16:41 | DVHINCON2 ---
Date of service: Apr 26, 2024 Referring Physician Hunter Kim Reason for Consultation S/P CPR History of Present Illness Mr. Brennan is a 33 years old gentleman with a history of previous drug overdosing, the patient was taken to the [facility] on 04/12/2024 with a chief company of cataract arrest, according to ER documentation, the patient was found to be non responsive for 15 minutes after smoking fentanyl. The patient was given Narcan, along with CPR and resuscitated, intubated, but unfortunately, the patient was not waking up with appropriate treatment, and CT/MR brain scan showed evidence of diffuse brain edema. At that time, when I saw patient, his mother and the family member in the room, and the patient was going to have terminal extubation Urinalysis, 04/12/2024: WBC: 1295, urine leukocyte esterase: 3+ UDS, 04/12/2024, fentanyl, amphetamine, cannabinoids WBC/HB/PLT/MCV, 04/26/2024: 15.1/8.9/591/91 TBI/AST/ALT/AP, 04/24/2024: 0.4/113/72/306 CT head, 04/12/2024: No acute intracranial abnormality. Bilateral maxillary sinusitis CT head, 04/14/2024: Diffuse cerebral edema is present. There is loss of the gra y-white matter differentiation suggesting diffuse cerebral edema. There is diffuse effacement of the cerebral sulci. The lateral and 3rd ventricles are slit-like. Diffuse sinusitis MRI head, 04/18/2024: Symmetrical cerebral sulcal effacement with indistinct margins of the servin-white matter on T2 sequences and effacement of the basal cisterns could be seen with cerebral edema. Past Medical History Prior drug overdose Past Surgical History Unknown Family History Unknown Social History Smoker: Unknown, Unobtainable Alcohol: Unknown, Unobtainable Drugs: Methamphetamine, Other (fentanyl) Lives In: Homeless Allergies: Coded Allergies: NO KNOWN ALLERGIES (Unverified , 04/18/23) Current Medications Current Medications Medications (Trade) Dose Ordered Sig/Moni Route PRN Reason Start Time Stop Time Status Last Admin Desmopressin Acetate (Ddavp Injection) 1 mcg DAILY IV 04/26/24 06:30 04/26/24 09:41 DC Vancomycin HCl 750 mg/Dextrose 100 ml @ 100 mls/hr Q10H IV 04/27/24 03:00 04/26/24 15:02 DC Morphine Sulfate 2 mg Q1HP PRN IV SEVERE PAIN (7-10 PAIN SCALE) 04/26/24 15:00 Lorazepam (Ativan Inj) 1 mg Q1HP PRN IV ANXIETY 04/26/24 15:00 Review of Systems Unobtainable Vital Signs Vital Signs Date Time Temp Pulse Resp B/P (MAP) Pulse Ox O2 Delivery O2 Flow Rate FiO2 04/26/24 16:00 68 04/26/24 16:00 30 04/26/24 16:00 18 98 Mechanical Ventilator+ 04/26/24 15:55 89/54 (66) 04/26/24 12:00 97.4 97.4 Physical Exam The patient is well-nourished and well-developed with no distress. The patient is intubated HEENT: Normocephalic, neck supple, no carotid bruits Lungs: Clear to auscultation Cardiovascular: Regular rate and region, S1, S2, no murmurs Abdomen: Soft, nontender, normal bowel sounds MENTAL STATUS: Not responsive to the surroundings, CRANIAL NERVES: Pupils are equal, round and reactive.There are corneal reflexes and doll's eyes phenomenon. No signs of facial weakness. There are gagging or coughing reflexes, there was spontaneous respiratory movement when returned after extubation SENSATION: No responses to pain stimuli. MOTOR: Normal tone in the upper and lower extremity. Normal muscle bulk. No fasciculations. No spontaneous movement. REFLEXES: Deep tendon reflexes are symmetrical. No pathological reflexes. CEREBELLAR/COORDINATION: Deferred GAIT/STATION: deferred. Labs/Diagnostic Data Labs Test 04/26/24 13:38 04/26/24 07:08 04/26/24 03:00 04/25/24 08:20 Range/Units POC Glucose 81 70-106 mg/dl Blood Gas Specimen Type Arterial Blood Gas Sample Site Arterial line Blood Gas Patient Temperature 37.0 Arterial Blood Date Drawn [id number] Arterial Blood pH 7.381 7.350-7.450 Arterial Blood Partial Pressure CO2 36.1 35.0-48.0 mmHg Arterial Blood Partial Pressure O2 99.1 83.0-108.0 mmHg Arterial Blood HCO3 20.9 L 21.0-28.0 mmol/L Arterial Blood Oxygen Saturation 98.0 94.0-98.0 % Arterial Blood Base Excess -3.7 L -2.0-3.0 mmol/L Arterial Blood Oxyhemoglobin 97.1 94.0-98.0 % Arterial Blood Carboxyhemoglobin 0.8 0.5-1.5 % Arterial Blood Methemoglobin 0.1 0.0-1.5 % Morgan Test N/a Blood Gas Total Hemoglobin 9.60 L 13.5-17.5 g/dL Blood Gas Set Respiration Rate 18.0 Blood Gas Modality Vent - ac FiO2 % 30.0 Blood Gas Tidal Volume 500.0 Blood Gas PEEP or CPAP 5.0 White Blood Count 15.1 H 4.4-10.8 10^3/uL Red Blood Count 2.97 L 4.5-5.90 10^6/uL Hemoglobin 8.9 L 13.5-17.5 g/dL Hematocrit 27.1 L 41.0-53.0 % Mean Corpuscular Volume 91.0 80.0-100.0 fL Mean Corpuscular Hemoglobin 30.1 28.0-32.0 pg Mean Corpuscular Hemoglobin Concent 33.0 32.0-36.0 g/dL Red Cell Distribution Width 14.7 H 11.8-14.3 % Platelet Count 591 H 140-450 10^3/uL Mean Platelet Volume 9.2 6.9-10.8 fL Neutrophils (%) (Auto) 78.4 37.0-80.0 % Lymphocytes (%) (Auto) 7.1 L 10.0-50.0 % Monocytes (%) (Auto) 12.5 H 0.0-12.0 % Eosinophils (%) (Auto) 1.7 0.0-7.0 % Basophils (%) (Auto) 0.3 0.0-2.0 % Neutrophils # (Auto) 11.9 H 1.6-8.6 10 ^3/uL Lymphocytes # (Auto) 1.1 0.4-5.4 10 ^3/uL Monocytes # (Auto) 1.9 H 0-1.3 10 ^3/uL Eosinophils # (Auto) 0.3 0-0.8 10 ^3/uL Basophils # (Auto) 0 0-0.2 10 ^3/uL Nucleated Red Blood Cells 0.0 % Sodium Level 142 136-145 mmol/L Potassium Level 4.3 3.5-5.1 mmol/L Chloride Level 110 H 98-107 mmol/L Carbon Dioxide Level 19 L 20-31 mmol/L Anion Gap 13 5-15 Blood Urea Nitrogen 39 H 9-23 mg/dL Creatinine 0.89 0.700-1.30 mg/dL Glomerular Filtration Rate Calc 115 >90 mL/min BUN/Creatinine Ratio 43.8 H 10.0-20.0 Serum Glucose 112 H 74-106 mg/dL Calcium Level 10.2 8.7-10.4 mg/dL Vancomycin Level Trough 21.8 H 5-10 ug/mL Test 04/24/24 03:24 04/22/24 06:35 04/20/24 17:32 04/20/24 16:23 Range/Units Total Bilirubin 0.4 0.2-1.0 mg/dL Aspartate Amino Transferase (AST) 113 H 13-40 U/L Alanine Aminotransferase (ALT) 72 H 7-40 U/L Alkaline Phosphatase 306 H 46-116 U/L Total Protein 8.3 H 5.7-8.2 g/dL Albumin 3.8 3.2-4.8 g/dL Blood Gas Spontaneous Rate 16 Blood Gas Inspiratory Pressure 19.0 Bl Gas Inspiratory/Expiratory Ratio 1: Specimen Drawn By lionel stacy Serum Osmolality 321 H 278-298 mOsm/kg Urine Osmolality 838 mOsm/kg Urine Sodium 143 40-220 mmol/L Test 04/20/24 15:16 04/19/24 03:00 04/16/24 09:32 04/16/24 03:18 Range/Units Magnesium Level 2.2 1.6-2.6 mg/dL Phosphorus Level 3.3 2.4-5.1 mg/dL Blood Gas Critical Value Read Back Yes Blood Gas Notified Whom ramya High md Blood Gas Notified Time [id number] Blood Gas Notified By mone Daniel rrt B-Type Natriuretic Peptide 4674.61 0-100 pg/mL Test 04/15/24 12:30 04/15/24 03:28 04/12/24 03:49 04/12/24 03:37 Range/Units Blood Gas Spontaneous Tidal Volume 399 Lactic Acid Level 1.9 0.4-2.0 mmol/L Urine Color Light-orange Yellow Urine Clarity Ex.turbid Clear Urine pH 5.5 5.0-9.0 Urine Specific [place] 1.031 1.001-1.035 Urine Protein 2+ H Negative Urine Ketones Trace Negative Urine Blood 3+ H Negative /uL Urine Nitrite Negative Negative Urine Bilirubin Negative Negative Urine Urobilinogen 3 H Negative mg/dL Urine Leukocyte Esterase 3+ Negative /uL Urine RBC 196 0 - 3 /hpf Urine WBC 1295 0 - 3 /hpf Urine Squamous Epithelial Cells Few <5 /hpf Urine Bacteria Few H None Seen /hpf Urine Hyaline Casts Few 0 - 2 /lpf Urine Mucus Few None Seen Urine Glucose Normal Normal mg/dL Urine Opiates Screen Neg NEGATIVE Urine Fentanyl Screen Pos NEGATIVE Urine Barbiturates Screen Neg NEGATIVE Urine Phencyclidine Screen Neg NEGATIVE Urine Amphetamines Screen Pos NEGATIVE Urine Benzodiazepines Screen Neg NEGATIVE Urine Cocaine Screen Neg NEGATIVE Urine Cannabinoids Screen Pos NEGATIVE Differential Total Cells Counted 100.0 100 Neutrophils % (Manual) 29 L 37.0-80.0 Band Neutrophils % (Manual) 2 Lymphocytes % (Manual) 56 H 10.0-50.0 Monocytes % (Manual) 6 0-12 Eosinophils % (Manual) 1 0-7 Basophils % (Manual) 0 0.0-2.0 Metamyelocytes % (manual) 1 Myelocytes % (Manual) 4 Promyelocytes % (Manual) 0 Blast Cells % (Manual) 0 Reactive Lymphocytes 1 Platelet Estimate Adequate Troponin I High Sensitivity 90 *H </=54 ng/L Microbiology Date/Time Source Procedure Growth Status 04/19/24 17:46 Blood Blood Culture - Final NO GROWTH AFTER 5 DAYS OF INCUBATION. Complete 04/15/24 06:00 Sputum Gram Stain - Final Complete 04/15/24 06:00 Respiratory Culture - Final Methicillin Resistant S.aureus Complete 04/15/24 05:30 Urine - Catheterized Urine Culture - Final Complete 04/13/24 01:30 Nose MRSA Screen - Final Complete Assessment Come Hypoxic encephalopathy Metabolic encephalopathy Anoxia Cardiopulmonary arrest secondary to drug overdose Substance abuse with drug overdose Acidosis Urine tract infection Acute respiratory failure Diffuse brain edema Plan/Recommendation Monitoring Supportive treatment The patient was like to have poor prognosis for meaningful all over or recovery I agree the decision of terminal wean Progress: Guarded Critical care time spent 40 minutes Have discussed with his family Plan discussed with: Other SEAMUS REYES MD Apr 26, 2024 16:41
--- NOTE | 2024-04-26 21:40 | DVHPNRES ---
Progress Note Has the PT tested + for MRSA If YES, has PT been informed?: Yes Medical Necessity Reason Pt with a Central, PICC or Fol: Yes The following are medically ne: Hercules Catheter Reason for hercules catheter: Strict I&O Objective vital signs Vital Sign Date Time Temp Pulse Resp B/P (MAP) Pulse Ox O2 Delivery O2 Flow Rate FiO2 04/26/24 16:41 80 18 95/55 04/26/24 16:00 30 04/26/24 16:00 98 Mechanical Ventilator+ 04/26/24 12:00 97.4 97.4 Total Intake and Output 04/25/24 04/25/24 04/26/24 15:00 23:00 07:00 Intake Total 216.250 ml 868.125 ml 183.00 ml Output Total 650 ml 725 ml Balance 216.250 ml 218.125 ml -542.00 ml medications Current Medications Medications Dose Ordered Sig/Moni Route Start Time Stop Time Status Last Admin Dose Admin Dextrose 50 ml UD PRN IV 04/12/24 11:30 Diagnostic Test (Pha) 1 strip Q6HR 04/12/24 12:00 UNV Insulin Human Regular Q6HR SC 04/12/24 12:00 UNV Dextrose 50 ml UD PRN IV 04/12/24 11:30 UNV Enoxaparin Sodium 30 mg DAILY SC 04/13/24 10:00 UNV Acetaminophen 650 mg Q6HP PRN GT 04/15/24 08:15 04/21/24 11:52 650 MG Morphine Sulfate 2 mg Q1HP PRN IV 04/26/24 15:00 04/26/24 16:41 2 MG Lorazepam 1 mg Q1HP PRN IV 04/26/24 15:00 04/26/24 16:36 1 MG laboratory and microbiology Laboratory Tests 04/26/24 03:00 Test 04/26/24 03:00 Range/Units Serum Glucose 112 H 74-106 mg/dL Microbiology Date/Time Source Procedure Growth Status 04/19/24 17:46 Blood Blood Culture - Final NO GROWTH AFTER 5 DAYS OF INCUBATION. Complete 04/15/24 06:00 Sputum Gram Stain - Final Complete 04/15/24 06:00 Respiratory Culture - Final Methicillin Resistant S.aureus Complete 04/15/24 05:30 Urine - Catheterized Urine Culture - Final Complete 04/13/24 01:30 Nose MRSA Screen - Final Complete Problem List/Assessment/Plan Problem List/Assessment/Plan NEURO: Acute metabolic encephalopathy likely due to sepsis/anoxic brain injury Patient is sedated on mechanical ventilation with a setting of (VT 500, RR 16, peep 5, FiO2 30%) Cerebral edema, likely due to cardiac arrest Anoxic brain injury, likely due to cardiac arrest RASS score is -5(unresponsive to pain stimuli), pupils are dilated, fixed and nonreactive to the light Head CT scan and brain MRI shows cerebral edema with effacement of sulci CARDIOVASCULAR: Status post cardiac arrest (likely due to fentanyl overdose), return to spontaneous circulation Non ST-elevation AK, likely due to cardiac arrest Dilated cardiomyopathy likely due to drug abuse(likely amphetamine) BNP is raised at 4674 Cardiology recommended conservative management Echocardiogram shows biventricular dilatation with ejection fraction 15% Patient is maintaining blood pressure without pressor PULMONARY: Acute hypoxic respiratory failure, likely due to pneumonia/cerebral edema leading to respiratory center suppression Septic shock likely due to pneumonia/UTI Pneumonia likely due to Gram-positive Gram-negative Patient is sedated on mechanical ventilation with a setting of (VT 500, RR 18, peep 5, FiO2 30%) ABGs shows respiratory acidosis, respiratory rate increased from 16 to 18 Last night blood pressure dropped, started back Levophed Blood culture from 04/17/2024 shows MRSA sensitive to vancomycin Repeat blood culture, after 48 hours shows no growth ABGs showed respiratory alkalosis with metabolic compensation, pH 7.43, pCO2 929.3, PO2 114, HC03 19.4 Continue vancomycin GI: Transaminitis, likely ischemic secondary to cardiac arrest RENAL: JEISON, likely hemodynamically mediated, improved UTI, unspecified location, completed course of Zosyn(given for 7 days) Hyperchloremia Hypokalemia, improved Hypernatremia, 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 Purified water 100 mL q.6 hours LINES/DRAINS/ACCESS: * ETT: Intubated on 04/12/2024 * IV access: Right upper limb midline, placed on 04/14/24 Right radial arterial line, placed on 04/17/24 Right internal jugular CVC, placed on 04/17/24 Right upper limb peripheral line, placed on 04/12/2024 * Transurethral Hercules catheter Placed on 04/14/2020 * Drips Levophed 8 Polysubstance drug abuser UDS is positive for the fentanyl, amphetamine and cannabinoids DIET: OG tube: Jevity 50 mL/hour DVT prophylaxis: Lovenox 40 GI ppx: Protonix 40 CODE STATUS: Currently full code Case discussed in detail with the mother on phone. 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 The mother lives on the [facility], wants to visit the patient before taking any decision regarding goal of care. She is supposed to visit the patient on Friday evening. Critical time spent more than 40 minutes, including patient care, chart review and updating the family. excluding any procedures. Case discussed with Dr. Langley My Orders My Orders Orders - [facility] Procedure Category Date Status Time Abg W/ Co-Ox RT 04/26/24 Logged 05:09 Dietary Evaluation Review Comments: 1) If GI is accessible consider Jevity 1.2 @ 50 ml/hr x 24 hrs goal rate as tolerated 2) If pt remains NPO >7 days consider TPN to meet a least 75% of estimated needs 3) Advance pt diet when medically feasible to a Cardiac diet 4) Continue current plan of care Expected Outcomes/Goals: 1) Pt to receive nutrition support within 7 days of NPO status 2) Pt diet to advance 3) F/.U in 2-3 days [facility] Apr 26, 2024 21:40
--- NOTE | 2024-04-26 22:51 | DVHDSRES ---
Discharge Summary Date of Admission Resident Creating Document: SOLEDAD LUU RESDIENT Apr 12, 2024 at 11:23 Date of Discharge: Apr 26, 2024 Admitting Diagnosis Acute respiratory failure Drug overdose Labs/Diagnostic Data: Laboratory Results Test 04/26/24 13:38 04/26/24 07:08 04/26/24 03:00 04/25/24 08:20 POC Glucose 81 mg/dl (70-106) Blood Gas Specimen Type Arterial Blood Gas Sample Site Arterial line Blood Gas Patient Temperature 37.0 Arterial Blood Date Drawn [id number] Arterial Blood pH 7.381 (7.350-7.450) Arterial Blood Partial Pressure CO2 36.1 mmHg (35.0-48.0) Arterial Blood Partial Pressure O2 99.1 mmHg (83.0-108.0) Arterial Blood HCO3 20.9 mmol/L (21.0-28.0) Arterial Blood Oxygen Saturation 98.0 % (94.0-98.0) Arterial Blood Base Excess -3.7 mmol/L (-2.0-3.0) Arterial Blood Oxyhemoglobin 97.1 % (94.0-98.0) Arterial Blood Carboxyhemoglobin 0.8 % (0.5-1.5) Arterial Blood Methemoglobin 0.1 % (0.0-1.5) Morgan Test N/a Blood Gas Total Hemoglobin 9.60 g/dL (13.5-17.5) Blood Gas Set Respiration Rate 18.0 Blood Gas Modality Vent - ac FiO2 % 30.0 Blood Gas Tidal Volume 500.0 Blood Gas PEEP or CPAP 5.0 White Blood Count 15.1 10^3/uL (4.4-10.8) Red Blood Count 2.97 10^6/uL (4.5-5.90) Hemoglobin 8.9 g/dL (13.5-17.5) Hematocrit 27.1 % (41.0-53.0) Mean Corpuscular Volume 91.0 fL (80.0-100.0) Mean Corpuscular Hemoglobin 30.1 pg (28.0-32.0) Mean Corpuscular Hemoglobin Concent 33.0 g/dL (32.0-36.0) Red Cell Distribution Width 14.7 % (11.8-14.3) Platelet Count 591 10^3/uL (140-450) Mean Platelet Volume 9.2 fL (6.9-10.8) Neutrophils (%) (Auto) 78.4 % (37.0-80.0) Lymphocytes (%) (Auto) 7.1 % (10.0-50.0) Monocytes (%) (Auto) 12.5 % (0.0-12.0) Eosinophils (%) (Auto) 1.7 % (0.0-7.0) Basophils (%) (Auto) 0.3 % (0.0-2.0) Neutrophils # (Auto) 11.9 10 ^3/uL (1.6-8.6) Lymphocytes # (Auto) 1.1 10 ^3/uL (0.4-5.4) Monocytes # (Auto) 1.9 10 ^3/uL (0-1.3) Eosinophils # (Auto) 0.3 10 ^3/uL (0-0.8) Basophils # (Auto) 0 10 ^3/uL (0-0.2) Nucleated Red Blood Cells 0.0 % Sodium Level 142 mmol/L (136-145) Potassium Level 4.3 mmol/L (3.5-5.1) Chloride Level 110 mmol/L (98-107) Carbon Dioxide Level 19 mmol/L (20-31) Anion Gap 13 (5-15) Blood Urea Nitrogen 39 mg/dL (9-23) Creatinine 0.89 mg/dL (0.700-1.30) Glomerular Filtration Rate Calc 115 mL/min (>90) BUN/Creatinine Ratio 43.8 (10.0-20.0) Serum Glucose 112 mg/dL (74-106) Calcium Level 10.2 mg/dL (8.7-10.4) Vancomycin Level Trough 21.8 ug/mL (5-10) Test 04/24/24 03:24 04/22/24 06:35 04/20/24 17:32 04/20/24 16:23 Total Bilirubin 0.4 mg/dL (0.2-1.0) Aspartate Amino Transferase (AST) 113 U/L (13-40) Alanine Aminotransferase (ALT) 72 U/L (7-40) Alkaline Phosphatase 306 U/L (46-116) Total Protein 8.3 g/dL (5.7-8.2) Albumin 3.8 g/dL (3.2-4.8) Blood Gas Spontaneous Rate 16 Blood Gas Inspiratory Pressure 19.0 Bl Gas Inspiratory/Expiratory Ratio 1: Specimen Drawn By lionel rt Serum Osmolality 321 mOsm/kg (278-298) Urine Osmolality 838 mOsm/kg Urine Sodium 143 mmol/L (40-220) Test 04/20/24 15:16 04/19/24 03:00 04/16/24 09:32 04/16/24 03:18 Magnesium Level 2.2 mg/dL (1.6-2.6) Phosphorus Level 3.3 mg/dL (2.4-5.1) Blood Gas Critical Value Read Back Yes Blood Gas Notified Whom ramya High md Blood Gas Notified Time [id number] Blood Gas Notified By mone Daneil rrt B-Type Natriuretic Peptide 4674.61 pg/mL (0-100) Test 04/15/24 12:30 04/15/24 03:28 04/12/24 03:49 04/12/24 03:37 Blood Gas Spontaneous Tidal Volume 399 Lactic Acid Level 1.9 mmol/L (0.4-2.0) Urine Color Light-orange (Yellow) Urine Clarity Ex.turbid (Clear) Urine pH 5.5 (5.0-9.0) Urine Specific [place] 1.031 (1.001-1.035) Urine Protein 2+ (Negative) Urine Ketones Trace (Negative) Urine Blood 3+ /uL (Negative) Urine Nitrite Negative (Negative) Urine Bilirubin Negative (Negative) Urine Urobilinogen 3 mg/dL (Negative) Urine Leukocyte Esterase 3+ /uL (Negative) Urine RBC 196 /hpf (0 - 3) Urine WBC 1295 /hpf (0 - 3) Urine Squamous Epithelial Cells Few /hpf (<5) Urine Bacteria Few /hpf (None Seen) Urine Hyaline Casts Few /lpf (0 - 2) Urine Mucus Few (None Seen) Urine Glucose Normal mg/dL (Normal) Urine Opiates Screen Neg (NEGATIVE) Urine Fentanyl Screen Pos (NEGATIVE) Urine Barbiturates Screen Neg (NEGATIVE) Urine Phencyclidine Screen Neg (NEGATIVE) Urine Amphetamines Screen Pos (NEGATIVE) Urine Benzodiazepines Screen Neg (NEGATIVE) Urine Cocaine Screen Neg (NEGATIVE) Urine Cannabinoids Screen Pos (NEGATIVE) Differential Total Cells Counted 100.0 (100) Neutrophils % (Manual) 29 (37.0-80.0) Band Neutrophils % (Manual) 2 Lymphocytes % (Manual) 56 (10.0-50.0) Monocytes % (Manual) 6 (0-12) Eosinophils % (Manual) 1 (0-7) Basophils % (Manual) 0 (0.0-2.0) Metamyelocytes % (manual) 1 Myelocytes % (Manual) 4 Promyelocytes % (Manual) 0 Blast Cells % (Manual) 0 Reactive Lymphocytes 1 Platelet Estimate Adequate Troponin I High Sensitivity 90 ng/L (</=54) Other Laboratory Tests 04/26/24 03:00 Brief Hx & Hospital Course: 33-year-old homeless male with a past medical history of hypertension, depression, and multidrug abuse was found to be non-responsive for 15 minutes after smoking fentanyl. The patient was given Narcan, along with CPR, and was resuscitated and intubated. Unfortunately, the patient did not wake up with appropriate treatment. Due to the critical condition of the patient and the inability to maintain the airway, the patient was intubated in the ER. The patient also has a previous history of ER visits due to corneal abrasion and drug overdose on April 18, 2023. Upon admission, lab studies were significant for anemia (Hb at 10.4), metabolic acidosis (pH 7.207), sodium at 147, creatinine 1.35, lactic acid 3.3, troponin I 90, urinalysis showed a UTI picture, and urine drug screen was positive for cannabinoids, amphetamine, and fentanyl. The patient had a blood pressure of 193/129, but after a few minutes, it dropped to 62/30. During hospital admission, due to the patient's inability to maintain the airway, the patient was intubated and put on mechanical ventilation. Due to opioid drug abuse, the patient was given naloxone but did not respond significantly. Due to low blood pressure, the patient was put on vasopressors including norepinephrine and epinephrine. During hospitalization, the patient's BP fluctuated from high blood pressure to hypotension, requiring adjustments. Upon admission, the patient was given antibiotics including ceftriaxone, vancomycin, normal saline, piperacillin/tazobactam, magnesium sulfate, a prophylactic dose of Lovenox, and Protonix. UDS showed positive for cannabis, amphetamine, and fentanyl. Due to suspicion of fentanyl intoxication causing respiratory failure, the patient was given naloxone but did not respond. A head CT scan showed no acute intracranial abnormalities, but subsequent CT and MRI scans showed cerebral edema. A chest x-ray showed pulmonary congestion with cardiomegaly. An echocardiogram showed severely reduced left ventricular systolic function with biventricular severe dilatation and an ejection fraction of 15% of the left ventricle. The patient was given GDMT including carvedilol, Entresto, and furosemide, but due to low blood pressure, GDMT was discontinued. Sputum culture showed MRSA positive, and blood culture also showed MRSA positive with Staph hominis subspecies hominis, which were sensitive to vancomycin, and vancomycin was given to the patient. Neurology was consulted. Based on the findings of the CT/MR brain scan showing evidence of diffuse brain edema, it was recommended that the patient would not have a meaningful recovery. The decision for terminal wean was agreed upon. EEG showed no evidence of active epileptiform discharges or electrographic seizures. The imaging studies and the status of the patient were discussed in detail with the family members, including the mother, sister, and ex-partner, including the option of tracheostomy and continuation of vegetative status and terminal intubation. After 7 days of discussion, the family decided on terminal extubation. The patient was extubated on 04/26/2024. Post-extubation, the patient was assessed for any response to verbal and tactile stimuli; no response was observed. Checked for the pupillary light reflex; pupils were fixed and dilated, indicating no response to light. Confirmed the absence of spontaneous respiration by listening for breath sounds and observing chest movements; no breath sounds or chest movements were detected. Listened for heart sounds using a stethoscope; no heart sounds were detected. [place] for the carotid pulse for a full 60 seconds; no pulse was detected. Observed the lunchroom monitor; confirmed no heart activity was present. Pronouncement of : After completing the above examinations and confirming the absence of vital signs, was pronounced at 4:50 on 04/26/2024. Critical Care Time: Critical care time spent more than 115 minutes, including patient care, chart review and updating, discussing all imaging findings, and discussing options with the family, excluding any procedures. Consults/Reason for consult Neurology: For evaluation of possible cerebral edema Pulmonology: Evaluation of respiratory status Operations or Procedures [address] [address] Ph: [phone] DIAGNOSTIC IMAGING Diagnostic Imaging Report : [id number] Signed PATIENT: GABRIEL SAUCEDO ACCT: [id number] UNIT: [id number] : 1990 LOC: ER ROOM / BED: / AGE / SEX: 33 / M ADM STATUS: REG ER SERVICE 5 ORDERING PHYSICIAN: SHANNON COOPER MD PROCEDURE(s): CXR1 - CHEST XRAY 1 VIEW REASON: post intubation placement ORDER NUMBER(s): [id number], ACCESSION NUMBER(s): [id number] CHEST RADIOGRAPH Indication:post intubation placement Technique: Single frontal view of the chest was obtained Comparison: None FINDINGS: Lines and Tubes: The endotracheal tube terminates 2.8 cm above the placiod. The enteric tube terminates in the mid esophagus. Repositioning is recommended. Lungs: Bilateral interstitial prominence. Pleura: No effusion. No pneumothorax. Cardiomediastinal contours: Unremarkable Bones: No acute osseous abnormality. Upper abdomen: Marked gaseous distention of the stomach and bowel loops. IMPRESSION: 1. Malpositioned enteric tube with its tip terminating in the mid esophagus. Repositioning is recommended. 2. Endotracheal tube terminates 2.8 cm above placido in appropriate position. 3. Pulmonary congestion. ATED BY: JALYN THURSTON MD DICTATED DATE/TIME: 04/12/24414 SIGNED BY: JALYN THURSTON MD SIGNED DATE/TIME: 04/12/24414 CC: [place] [address] Ph: [phone] DIAGNOSTIC IMAGING Diagnostic Imaging Report : [id number] Signed PATIENT: GABRIEL SAUCEDO ACCT: [id number] UNIT: [id number] : 1990 LOC: ER ROOM / BED: / AGE / SEX: 33 / M ADM STATUS: REG ER SERVICE 6 ORDERING PHYSICIAN: SHANNON COOPER MD PROCEDURE(s): HWOCT - HEAD WITHOUT CONTRAST REASON: altered ORDER NUMBER(s): [id number], ACCESSION NUMBER(s): [id number] EXAM: CT HEAD WITHOUT CONTRAST INDICATION: altered TECHNIQUE: CT of the head without intravenous contrast. Radiation dose : Head: CT Dose: CTDI volume is 53 mGy. Dose-length product is 972.72 mGy*cm The dose indicators for CT are the volume computed tomography (CT) dose index (CTDIvol) and the dose length product (DLP), and are measured in units of mGy and mGy-cm, respectively. These indicators are not patient dose, but values generated from the CT scanner acquisition factors. The report includes radiation exposure data for exposures received during this examination. COMPARISON: None FINDINGS: There is no evidence of acute intracranial hemorrhage, extra-axial collection, mass effect, midline shift, herniation or hydrocephalus. The ventricles, sulci and cisterns are age appropriate. The servin-white differentiation is intact. There are air-fluid levels in the bilateral maxillary sinuses. The surrounding soft tissues and osseous structures are unremarkable. IMPRESSION: 1. No acute intracranial abnormality. Bilateral maxillary sinusitis. Radiation optimization: All CT scans at this facility use at least one of these dose optimization techniques: Automated exposure control mA and/or kV adjustment per patient size (includes targeted exams where dose is matched to clinical indication) or iterative reconstruction. HS:Y ATED BY: ENRIQUE NORRIS MD DICTATED DATE/TIME: 04/12/24 1030 SIGNED BY: ENRIQEU NORRIS MD SIGNED DATE/TIME: 04/12/24 1030 CC: [place] [address] Ph: [phone] DIAGNOSTIC IMAGING Diagnostic Imaging Report : [id number] Signed PATIENT: GABRIEL SAUCEDO ACCT: [id number] UNIT: [id number] : 1990 LOC: ICU MOTT ROOM / BED: 010- / A AGE / SEX: 33 / M ADM STATUS: ADM IN SERVICE 0000 ORDERING PHYSICIAN: PAM PACE MD PROCEDURE(s): MBHL - BRAIN HEAD WO CONTRAST REASON: Cerebral edema ORDER NUMBER(s): [id number], ACCESSION NUMBER(s): [id number] MRI BRAIN HEAD WO CONTRAST INDICATION: Cerebral edema EXAM DATE: 04/18/2024 11:06 AM COMPARISON: CT HEAD WITHOUT CONTRAST on DOS: 04/12/24 PROCEDURE: Using a 1.5 Yisel scanner, multisequence multiplanar imaging of the brain was obtained. FINDINGS: Sulcal effacement with indistinct margins of the servin-white matter on T2 sequences. Effacement of the basal cisterns is noted. There is irregular contour of the bilateral optic nerves with increased fluid around the optic nerves. The brain otherwise shows normal morphology and signal characteristics. No abnormal diffusion restriction, or susceptibility hypointensity is present. The ventricles are normal in size. The midline structures are intact. The major intracranial flow voids are present. Bilateral maxillary sinus and mastoid air cell mucosal fluid. The extracranial soft tissues appear normal. IMPRESSION: Symmetrical cerebral sulcal effacement with indistinct margins of the servin-white matter on T2 sequences and effacement of the basal cisterns could be seen with cerebral edema. ATED BY: JEEVAN HERNANDEZ MD DICTATED DATE/TIME: 04/18/241223 SIGNED BY: JEEVAN HERNANDEZ MD SIGNED DATE/TIME: 04/18/241223 CC: [facility] EEG Report Patient Name: Gabriel Saucedo Unit Number: [id number] Date of : 1990 Patient Status: Discharged Inpatient Attending Doctor: Bandar Harrison MD Neurology Neurology EEG Procedural Note Procedural Note Date of service: April 16, 2024 Diagnosis: Anoxic encephalopathy Patient status: Unresponsive. Conditions of recording: This is an 18 channel EEG recording with electrode placement following guidelines as per the 10/20 international classification. No activating procedure was performed. Technical summary: The entire recording was degraded by abundant, persistent electrical and lead artifact, making any semblance of accurate interpretation impossible. In any case, there did not appear to be any active epileptiform discharges or electrographic seizures seen. Impression: This is a significantly suboptimal EEG study, however, with no evidence of active epileptiform discharges or electrographic seizures seen. Clinical correlation is imperative. MARTINA VARGAS MD [place] [address] Ph: [phone] DIAGNOSTIC IMAGING Diagnostic Imaging Report : [id number] Signed PATIENT: GABRIEL SAUCEDO ACCT: [id number] UNIT: [id number] : 1990 LOC: ICU [facility]OTT ROOM / BED: 010-CC / A AGE / SEX: 33 / M ADM STATUS: ADM IN SERVICE 5125 ORDERING PHYSICIAN: PAM PACE MD PROCEDURE(s): ECIDC - ECHO 2D MODE CARDIAC DOP REASON: shock echo, s/p cardiac arrest ORDER NUMBER(s): [id number], ACCESSION NUMBER(s): [id number] APPROVED REPORT EXAM: Two-dimensional and M-mode echocardiogram with Doppler, color Doppler and Optison. Blood Pressure: 117/76 mmHg INDICATION shock,s/pcardiac arrest DIMENSIONS LVDd 6.1 (3.8-5.7cm) LA (2D) 4.4 (1.9-4.0cm) Aortic Root 3.3 (2.0- 3.7cm) LVDs 5.6 (2.5-4.0cm) LA (MM) (1.9-4.0cm) Aortic Cusp Exc 2.0 (1.5- 2.0cm) EF (%) 18.1 (55-70%) Rt. Atrium 4.3 (1.9-4.0cm) Asc. Aorta cm IVSd 1.1 (0.7-1.1cm) RV (D) 3.8 (1.8-2.4cm) PWd 1.2 (0.7-1.1cm) Mitral Valve Mitral Mitral Stenosis E wave 0.87m/s MV Mean GR. mmHg A wave m/s MV Peak GR. 63mmHg E/A ratio 0.0 2D MVA cm2 Aortic Valve Aortic Valve Aortic Stenosis V1 0.81m/s AO Mean GR. 2mmHg V2 0.90m/s AO Peak GR. 3mmHg Pulmonic Valve V2 0.60m/s Tricuspid Valve TR Velocity 2.82m/s RVSP 34mmHg Other Information Technically limited study due to on vent. Conclusion Severely dilated left ventricle. Severely reduced left ventricular systolic function. 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 Estimated ejection fraction of 15%. Severely dilated right ventricle. Severely reduced right ventricular systolic function. Slightly increased right ventricular systolic [id number] mm of mercury. Moderately dilated right and left atria. There is moderate mitral valve regurgitation. There is moderate tricuspid valve regurgitation. The aortic valve appears normal structure function. The pulmonary valve is grossly normal. There is a small pericardial effusion. 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: Attending Physician Indication: Hypotension, CVP monitoring Room prepared for procedure: Yes Outbound Sales Executive performed hand hygien: Yes Maximal sterile barrier precau: Mask/Eye shield, Sterile gown, Cap, Sterlie gloves, Large sterlie drape Skin Preparation: Chlorhexidine gluconate Skin preparation completely dr: Yes Insertion site: Right, Internal jugular Central line catheter type: [id number] dialysis Number of lumens: 3 Central line exchanged over a: Yes Antiseptic ointment applied to: Yes Post Assessment: Chest X-Ray, Proper placement (confirmed placement with bubble), No Pneumothorax Informed consent obtained: Yes Risks/benefits/alt described: Yes Visit Coding Cardiology Date of Service: Apr 17, 2024 Billing Provider: PAM PACE MD Cardiology Common Codes: PROCEDURE ONLY ([id number] R IJ TLC) PAM PACE MD Apr 17, 2024 14:48 [facility] Bedside Proc w/coding Patient Name: Gabriel Saucedo Unit Number: [id number] Date of : 1990 Patient Status: Discharged Inpatient Attending Doctor: Bandar Harrison MD [facility] Procedure Report Other Procedure Procedure Right radial arterial line Indication invasive BP monitoring Anesthetic purposeful sedation Prep chlorhexidine skin prep Success yes Informed consent obtained: Yes Risks, benefits, and alternati: Yes Visit Coding Cardiology Date of Service: Apr 17, 2024 Billing Provider: PAM PACE MD Cardiology Common Codes: PROCEDURE ONLY PAM PACE MD Apr 17, 2024 15:20 Condition at Discharge: Undetermined Final Diagnosis/Problems List Acute metabolic and toxic encephalopathy likely due to sepsis/anoxic brain injury/drug overdose Cerebral edema, likely due to cardiac arrest Anoxic brain injury, likely due to cardiac arrest Status post cardiac arrest (likely due to fentanyl overdose), return to spontaneous circulation with CPR Non ST-elevation AK, type 2 likely due to cardiac arrest Acute on chronic systolic heart failure, likely due to drug use disorder/hypertension Hypertension emergency Dilated cardiomyopathy likely due to drug abuse(likely due to amphetamine) Acute hypoxic respiratory failure, likely due to pneumonia/cerebral edema leading to respiratory center suppression Septic shock likely due to pneumonia/UTI UTI, unspecified location Pneumonia likely due to MRSA Transaminitis, likely ischemic secondary to cardiac arrest JEISON, likely hemodynamically mediated, improved UTI, unspecified location, completed course of Zosyn(given for 7 days) Hyperchloremia Hypokalemia, improved Hypernatremia, likely due to central diabetes insipidus, improving Possible Diabetes insipidus, likely due to cerebral edema Drug overdose fentanyl/methamphetamine/marijuana Marijuana use disorder Methamphetamine use disorder Opioid use disorder Discharge Disposition: at Hospital Discharge Statement: "Patient was advised to return to the ER or call 911 if any headaches, dizziness, shortness of breath, chest pain, abdominal pain, bleeding, fevers, or worsening of medical condition. Patient was counseled about treatment plan, medications, possible side effects, patientverbalized understanding. All questions were answered to the best of my ability. This discharge took greater then 30 minutes in planning, reviewing documentation, counseling the patient, and discussing with other team members." ASSESSMENT ASSESSMENT Assessment Date of Service: Apr 26, 2024 Billing Provider: BANDAR HARRISON MD Common Visit Codes: 50608-DGEYMCJC CARE 30-74 MIN, 30957-QEPYDLFB CARE-EACH +30MIN (07827 x 2) SOLEDAD LUU RESDIJORDAN Apr 26, 2024 22:51 BANDAR HARRISON MD May 02, 2024 15:09
[2024-04-27] MEDS ORDERED: VANCOMYCIN 750MG VIAL 750 MG in D5W 5% 100 ML IV SCH (03:00)
== END 2024-04-26 23:20 | DRG 720 ==
LOC: ER 03:19 → EDBD 03:19 → OVERFLOW 11:23 → ICU WEST 04-13 01:38
PROVIDERS: ADMIT Internal Medicine; ATTEND Internal Medicine
PROC: 5A12012 Performance of Cardiac Output, Single, Manual (ICD-10-PCS; principal; 2024-04-12)
PROC: 5A1955Z Respiratory Ventilation, Greater than 96 Consecutive Hours (ICD-10-PCS; 2024-04-12)
PROC: 0BH17EZ Insertion of Endotracheal Airway into Trachea, Via Natural or Artificial Opening (ICD-10-PCS; 2024-04-12)
PROC: 06HY33Z Insertion of Infusion Device into Lower Vein, Percutaneous Approach (ICD-10-PCS; 2024-04-12)
PROC: 05HD33Z Insertion of Infusion Device into Right Cephalic Vein, Percutaneous Approach (ICD-10-PCS; 2024-04-14)
PROC: B54MZZA Ultrasonography of Right Upper Extremity Veins, Guidance (ICD-10-PCS; 2024-04-14)
PROC: 02HV33Z Insertion of Infusion Device into Superior Vena Cava, Percutaneous Approach (ICD-10-PCS; 2024-04-17)
PROC: 03HY32Z Insertion of Monitoring Device into Upper Artery, Percutaneous Approach (ICD-10-PCS; 2024-04-17)
DX: A41.9 Sepsis, unspecified organism (principal); J96.01 Acute respiratory failure with hypoxia; I46.9 Cardiac arrest, cause unspecified; G93.6 Cerebral edema; N17.0 Acute kidney failure with tubular necrosis; I50.43 Acute on chronic combined systolic (congestive) and diastolic (congestive) heart failure; J15.212 Pneumonia due to Methicillin resistant Staphylococcus aureus; G93.41 Metabolic encephalopathy; I11.0 Hypertensive heart disease with heart failure; T40.411A Poisoning by fentanyl or fentanyl analogs, accidental (unintentional), initial encounter; T43.651A Poisoning by methamphetamines accidental (unintentional), initial encounter; E87.20 Acidosis, unspecified; F32.A Depression, unspecified; Z59.00 Homelessness unspecified; E87.4 Mixed disorder of acid-base balance; G93.1 Anoxic brain damage, not elsewhere classified; E87.0 Hyperosmolality and hypernatremia; N39.0 Urinary tract infection, site not specified; E87.8 Other disorders of electrolyte and fluid balance, not elsewhere classified; E87.6 Hypokalemia; Y92.89 Other specified places as the place of occurrence of the external cause
CPT/HCPCS: 36415; 36600; 70450; 70551; 71045; 80048; 80053; 80202; 80307; 81001; 82565; 82805; 82962; 83605; 83735; 83880; 83930; 83935; 84100; 84132; 84300; 84484; 85007; 85025; 85027; 87040; 87070; 87077; 87081; 87086; 87186; 87205; 93005; 93306; 94003; 95819; 96365; 99291; G0378; J0171; J2250; J2470; J2543; J2704; J7042; J7060